=== PATIENT | female | born 1955 | race Caucasian/White ===

== ENCOUNTER → 2018-03-04 12:11 | Outpatient (CLI) | payer OTHER, SELFPAY ==
--- NOTE | 2018-03-04 12:14 | US_ITS ---
STUDY: RENAL ULTRASOUND - COMPLETE REASON FOR EXAM: Female, 62 years old. Recurrent UTI TECHNIQUE: Ultrasound evaluation of the kidneys was performed with real-time and static duran-scale imaging. COMPARISON: None. FINDINGS: RIGHT KIDNEY: Normal location of the right kidney, which is normal in size. The right kidney measures 12.1 x 5.3 x 3.8 cm. There is a normal cortex of the right kidney. The renal cortex measures 1.3 cm. There is no right renal mass or cyst. There are no right renal calculi. There is no right hydronephrosis. Probable extrarenal pelvis. DISTAL RIGHT URETER: There is non-visualization of the distal right ureter. There is a visualized right ureteral jet. LEFT KIDNEY: Normal location of the left kidney, which is normal in size. The left kidney measures 11.8 x 5.1 x 5.6 cm. There is a normal cortex of the left kidney. The renal cortex measures 2.0 cm. There is no left renal mass or cyst. There are no left renal calculi. There is no left hydronephrosis. DISTAL LEFT URETER: There is non-visualization of the distal left ureter. There is a visualized left ureteral jet. BLADDER: The distended urinary bladder has a volume of 289 ml. The post void urinary bladder has a volume of 140 ml. There is a normal wall thickness of the distended urinary bladder. There is no demonstrated mass within the urinary bladder. There are no demonstrated bladder calculi. US/Kidney and Bladder IMPRESSION: Significant post void residual of the urinary bladder. Electronically Signed: Daniele Elena DO at 23:50 EST Tel [phone], Service support ,
== END ==
PROVIDERS: Family Provider Nurse Practitioner Primary Care; PCP Nurse Practitioner Primary Care; Referring Provider Urology; Visit Provider Urology
DX: N39.0 Urinary tract infection, site not specified (principal)
CPT/HCPCS: 76770

== ENCOUNTER 2023-10-28 12:00 | Outpatient (RCR) | payer MEDICARE, SELFPAY ==
--- NOTE | 2023-09-29 15:56 | HP.PTEVAL ---
Patient's Visit Information Visit Information Visit Information: BLANK GONZALEZ is a 68 year old F referred to Physical Therapy by Dr. Sondra Morales MD with a diagnosis of PELVIC FLOOR DYSFUNCTION WITH URETHRAL PAIN. Date of Evaluation: 09/29/23 Physical Therapist: Gunjan Clark PT, Cert MDT Visit Plan Frequency: 1x/Week Duration: 2-4 Months Plan: PF THERAPY RELAXATION TRAINING. MANUAL PELVIC FLOOR THERAPY NEEDED. URINARY URGE AND FREQUENCY EDUCATION. HEALTHY BLADDER HABIT EDUCATION. POSTURE TRAINING. SANTY LE ROM, STRETCHING AND STRENGTHENING TO DECREASE STRESS ON THE PELVIC FLOOR. TRAINING IN APPROPRIATE ABDOMINAL CAVITY PRESSURE MGMT WITH ADL'S. CONSIDER PF STRENGTHENING APPROPRIATE. Subjective Subjective: Work/Leisure: RETIRED Present symptoms: INTERMITTENT PAIN IN URETHRAL AREA. INTERMITTENT VAGINAL AREA PAIN. FREQUENT URINATION (ABOUT EVERY 2 HRS) AND URINARY URGENCY. INTERMITTENT LOWER ABDOMINAL PAIN IN THE BLADDER REGION - INFRREQUENT. PATIENT REPORTS SHE HAS A FEELING A URINARY URGENCY QUITE FREQUENTLY NOW THAT SHE DIDN'T USE TO HAVE AND SHE ALSO HAS A DISCOMFORT IN HER VAGINAL AREA NOW QUITE FREQUENTLY THAT SHE DIDN'T USE TO HAVE. THESE SYMPTOMS HAVE REMAINED SINCE THE EPISODE OF SEVERE PAIN ONSET APPROX'LY END OF JULY THAT STARTED FOR NO APPARENT REASON. Present since: JULY Pain Scale: WORST 6/10, LEAST 0/10 Currently: /10 Is it getting better, worse or staying the same: GETTING BETTER Commenced as a result of: NO APPARENT REASON BUT WAS DEALING WITH diarrhea AND GAS. Symptoms at onset: PAIN, CRAMPING AND BULGING IN VAGINAL AREA AND PAIN IN THE URETHRA. Worse: NOTHING IN PARTICULAR BUT NOTICES VAGINAL DISCOMFORT MORE WHEN LIES DOWN AT NIGHT. NOTICES URGENCY JUST SITTING BUT ALSO ANYTIME. STRESS Better: URAGESIC BLUE - TABLET, [place], BM, URINATING ALMOST ALWAYS GIVES SOME BUT NOT COMPLETE PAIN RELIEF. Disturbed sleep: GETTING UP 2-3 TIMES AT NIGHT TO URINATE Previous history/Previous treatment: 2018 - DIET CHANGES RECOMMENDED BY DR. MORALES - WHICH REALLY HELPED HER BURNING AND URGENCY. STATES DR. MORALES FOUND LESIONS IN HER BLADDER TOO. HYSTERECTOMY. BLADDER SUSPENSION ABOUT 10 YEARS AGO. Treatment this episode: URAGESIC BLUE Coughing/sneezing/straining: NEGATIVE FOR UI Gait: NORMAL How long can you delay the need to urinate: LONG NEEDED TO GET TO THE BATHROOM BUT DANCES TO GET THERE SOMETIMES AND BARELY MAKES IT. Prolapse (Falling out feeling): NO LONGER FEELING THIS Frequency of Urination: ABOUT EVERY 2 HOURS Ability to stop urine flow: AT LEAST PARTIALLY IF NOT ALL THE WAY. Ability to initiate urine stream: YES Dyspareunia: N/A Bowel Incontinence: NO Accidents: NO Unexplained weight loss: NO Imaging: Cystoscopy 2018 PMH/Recent major surgery: ULCERATIVE COLITIS, HIGH CHOLESTEROL, DEPRESSION, ANXIETY Objective Objective: Sitting/Standing Posture: SWAY BACK. INCREASED KYPHOSIS. NO RELAVENT LATERALY SHIFT. ILIAC CRESTS SYMMETRICAL Other Observations: THIS PATIENT AMBULATES INDEP'LY INTO PT WITHOUT ANY AD'S OR LOB. INDEP TRANSFERS. SHE IS PLEASANT AND COOPERATIVE TO WORK WITH. Sensory deficit: SANTY LE LIGHT TOUCH SENSATION GROSSLY INTACT AND SYMMETRICAL ROM deficit: TIGHT SANTY LE HS, HIP FLEXORS, ROTATORS, AB AND ADDUCTORS. ALSO CALVES. Motor deficit: SANTY LE'S GROSSLY 5/5 EXCEPT HIPS 4/5. PELVIC FLOOR STRENGTH OF 3/5 X 3 SEC X 3 WITH INTERNAL MANUAL VAGINAL TESTING. PATIENT DENIES PAIN WITH TESTING. Dural Signs: NEGATIVE SANTY LE'S. Lumbar mvmt loss: flex - MIN ext - MOD R SG - MOD L SG - MOD Core strength: FAIR Palpation: NO ACUTE LOW BACK OR HIP PAIN WITH PALPATION. TENDERNESS AND MILD TIGHTNESS WITH MANUAL INTERNAL VAGINAL PALPATION OF PELVIC FLOOR MUSCULATURE BUT NO PALPAPABLE TRIGGER POINTS. FUNCTIONAL SCREEN: Incontinence Impact Questionnaire Score: 0 Urogenital Distress Inventory Score: 6 Goals Goal 1:: DECREASE C/O OF # OF EPISODES OF URETHRAL PAIN BY AT LEAST 50% Goal Time Frame: 6-8 Weeks Goal 2:: DECREASE C/O INTENSITY OF URETHRAL PAIN BY AT LEAST 75% Goal Time Frame: 6-8 Weeks Goal 3:: PATIENT WILL BE ABLE TO SUCCESSFULLY BE ABLE TO MAKE IT TO THE BATHROOM IN TIME WITHOUT UI OR URGENCY. Goal Time Frame: 6-8 Weeks Goal 4:: NORMALIZE VOIDING PATTERNS TO EVERY 2.5 TO 3.5 HOURS. Goal Time Frame: 6-8 Weeks Goal 5:: PATIENT WILL BE INDEP WITH A HEP FOR CONTINUED IMPROVEMENT ONCE FORMAL PHYSICAL THERPAY CONCLUDES. Goal Time Frame: 6-8 Weeks Rehabilitation Potential Physical Therapy Diagnosis: ACUTE PELVIC FLOOR TENDERNESS AND WEAKNESS ALONG WITH HISTORY OF CHRONIC URGE INCONTINENCE. INCREASED URIINARY FREQUENCY. Rehabilitation Potential: Good Anticipated Interventions Patient/Client Instruction: Educate patient on: Condition, Plan of Care and Risk Factors For the Purpose of:: To improve self management Therapeutic Exercise to Include: Strength training, Postural training, Flexibilty training, Neuromotor development and Relaxation training For the Purpose of:: To decrease pain, To improve muscle performance and motor function, To increase tolerance to activity/condition/position, To improve ability of physical actions for home/community/work/leisure, To decrease soft tissue restriction, To increase flexibility/ROM and To improve self management Manual Therapy Techniques to Include: Soft tissue mobilization For the Purpose of:: To decrease pain and To decrease soft tissue restriction Thermo therapy (hot pack): Yes For the Purpose of:: To decrease pain and To improve nutrient delivery to tissue Text: Thank you for the opportunity to evaluate your patient. For Medicare and Medicare HMO plans, please review the plan of care and approve it. It will need to be FAXED BACK to us at [phone] for Medicare purposes. For Medicare only, by signing this I certify the plan of care. Please let me know if there are questions or concerns regarding this plan of care. Physician Signature: Date:
--- NOTE | 2023-10-28 12:49 | HP.PTDCSUM ---
Discharge Summary D/C summary: It has been my pleasure to treat BLANK GONZALEZ referred by Dr. Sondra Mary MD, with the diagnosis of PELVIC FLOOR DYSFUNCTION WITH URETHRAL PAIN for a total of 6 visit(s). Discharge Date: Please see the following information for a summary of their discharge status. Subjective Subjective: I HAVEN'T HAD ANY MORE PROBLEM. PATIENT REPORTS COMPLIANCE WITH HEP AND STATES IT IS GOING GOOD. REPORTS SHE TRIED ONCE AND FOUND THAT SHE IS ABLE TO STOP HER URINE FLOW MID-STREAM. PATIENT REPORTS SHE FEELS READY FOR DISCHARGE. Overall Improvement % Improvement: 100 Objective Objective/Function: ALL GOALS MET. PATIENT COMMUNICATES A GOOD UNDERSTANDING OF ALL INSTRUCTIONS GIVEN. Goals Goal 1:: DECREASE C/O OF # OF EPISODES OF URETHRAL PAIN BY AT LEAST 50% Goal Progress: Goal Met Goal 2:: DECREASE C/O INTENSITY OF URETHRAL PAIN BY AT LEAST 75% Goal Progress: Goal Met Goal 3:: PATIENT WILL BE ABLE TO SUCCESSFULLY BE ABLE TO MAKE IT TO THE BATHROOM IN TIME WITHOUT UI OR URGENCY. Goal Progress: Goal Met Goal 4:: NORMALIZE VOIDING PATTERNS TO EVERY 2.5 TO 3.5 HOURS. Goal Progress: Goal Met Goal 5:: PATIENT WILL BE INDEP WITH A HEP FOR CONTINUED IMPROVEMENT ONCE FORMAL PHYSICAL THERPAY CONCLUDES. Goal Progress: Goal Met Plan Plan: D/C. PATIENT AGREEABLE. D/C Information d/c sentence: If there are questions or concerns regarding this patient's physical therapy, please feel free to call me at [phone]. Thank you for the referral of this patient. Sincerely, Gunjan Clark, PT, Cert MDT Balance/Gait/Functional tests Improvement % Improvement: 100
== END 2023-10-28 19:00 | disposition home or self-care (01) ==
LOC: PT 12:00
PROVIDERS: PCP Nurse Practitioner Primary Care; Referring Provider Urology; Visit Provider Urology
DX: M99.05 Segmental and somatic dysfunction of pelvic region (principal)
CPT/HCPCS: 97162; 97530

== ENCOUNTER → 2024-11-21 | Outpatient (CLI) | payer MEDICARE, SELFPAY ==
[2024-11-21 10:52] LABS: Hematocrit 40.0 % (37-47); Hemoglobin 13.2 g/dL (12.0-15.0); Immature Granulocytes Count 0.010 X10^3/uL (0.0-0.0); Mean Corp Hgb Conc 33.0 g/dL (32-36); Mean Corpuscular Volume 89.7 fL (81-99); Mean Platelet Vol. 9.2 fl (6.2-12.0); NRBC Flagged by Analyzer 0 % (0-5); Platelet Count 352 K/mm3 (150-450); RBC Distribution Width CV 12.5 % (11.6-14.6); RBC Distribution Width SD 41.0 fl (35.1-43.9); Red Blood Count 4.46 M/mm3 (4.2-5.4); White Blood Count 4.9 K/mm3 (4.4-11.0)
[2024-11-21 11:57] LABS: AST(SGOT) 34 U/L (<=31); Alanine Aminotransfer ALT/SGPT 16 U/L (<=34); Albumin, Serum 4.0 g/dL (3.4-4.8); Alkaline Phosphatase 68 U/L (35-104); Anion Gap 10 (5-15); BUN 13 mg/dL (4-19); BUN/Creat Ratio 22.2 RATIO (10-20); CRP < 3.00 mg/L (0.0-3.0); Calcium,Total 8.8 mg/dL (7.6-11.0); Carbon Dioxide 24.4 mmol/L (21.0-32.0); Chloride 105 mmol/L (98-108); Globulin 2.8 g/dL (2.2-4.2); Glucose 94 mg/dL (70-99); Potassium 4.1 mmol/L (3.3-5.1)
[2024-11-23 03:07] LABS: Pancreatic Elastase, Fecal > 800 (>200)
[2024-11-24 00:07] LABS: Calprotectin, Stool 14 ug/g (0-120); Fats, Neutral Normal (.); Fats, Total Normal (.)
== END | disposition home or self-care (01) ==
PROVIDERS: PCP Nurse Practitioner Primary Care; Referring Provider Internal Medicine Gastroenterology; Visit Provider Internal Medicine Gastroenterology
DX: K51.90 Ulcerative colitis, unspecified, without complications (principal)
CPT/HCPCS: 36415; 80053; 82653; 82705; 83630; 83993; 85025; 85652; 86140; 87177; 87209; 87329; 87493

== ENCOUNTER → 2025-01-09 | Outpatient (CLI) | payer MEDICARE, SELFPAY ==
--- NOTE | 2025-01-09 09:37 | US_ITS ---
PROCEDURE: ABDOMEN LIMITED 01/09/2025 REASON FOR EXAM: ELEVATED LFTS TECHNIQUE: Procedure Code: USABDL Modality: US Procedure: ABDOMEN LIMITED COMPARISON: None FINDINGS: Liver: Diffusely echogenic suggesting fatty infiltration. Hepatomegaly. The liver measures 18.9 cm. There is a 1.5 cm 1.9 cm by 1.3 cm hyperechoic nodule in the right lobe of the liver superiorly. This most likely represents a hemangioma. Gallbladder: No stones, sludge, wall thickening or tenderness. Common bile duct: Normal measuring 4.6 mm. . Pancreas: Normal Other: Visualized portions of the right kidney are unremarkable. No right upper quadrant ascites. US/Abdomen Limited IMPRESSION: Hepatomegaly and fatty infiltration of the liver. Findings suggestive of a 1.5 cm x 1.9 cm x 1.3 cm hemangioma in the right lobe of the liver. Reading Location: [place] [id number]
== END | disposition home or self-care (01) ==
PROVIDERS: PCP Nurse Practitioner Primary Care; Referring Provider Internal Medicine Gastroenterology; Visit Provider Internal Medicine Gastroenterology
DX: R79.89 Other specified abnormal findings of blood chemistry (principal)
CPT/HCPCS: 76705

== ENCOUNTER → 2025-01-30 | Outpatient (CLI) | payer MEDICARE, SELFPAY ==
--- OUTSIDE RECORDS SUMMARY | 2025-01-30 07:21 | XMS RPT_ITS | CCD ---
Author Organization [facility] Care Team Providers Care Manager Inventory Control Name Role Phone IGGY LICENSED VETERINARY TECHNICIAN-FOUNTAIN PEN NIBS INSPECTOR, GRIS S Primary Care Physicia n CLYDE LORENZO MD Attending Unavailable IGGY LICENSED VETERINARY TECHNICIAN-FOUNTAIN PEN NIBS INSPECTOR, GRIS S Primary Care Unava ilable IGGY LICENSED VETERINARY TECHNICIAN-FOUNTAIN PEN NIBS INSPECTOR, GRIS S Primary Care Unava ilable XAVI IBRAHIM, DR GAMBINO Attending Unavailable DEVIKA LICENSED VETERINARY TECHNICIAN-FOUNTAIN PEN NIBS INSPECTOR, MELODIE Steele Attending Unavai lable IGGY LICENSED VETERINARY TECHNICIAN-FOUNTAIN PEN NIBS INSPECTOR, GRIS S Primary Care Unava ilEVETTE Wright DO Consulting Unavail able XAVI IBRAHIM, DR GAMBINO Attending Unavailable IGGY LICENSED VETERINARY TECHNICIAN-FOUNTAIN PEN NIBS INSPECTOR, GRIS S Primary Care Unava ilALEXANDRIA Sneed MD Consulting Unavailable DEVIKA LICENSED VETERINARY TECHNICIAN-FOUNTAIN PEN NIBS INSPECTOR, MELODIE Steele Attending Unavai lable IGGY LICENSED VETERINARY TECHNICIAN-FOUNTAIN PEN NIBS INSPECTOR, GRIS S Primary Care Unava ilable IGGY LICENSED VETERINARY TECHNICIAN-FOUNTAIN PEN NIBS INSPECTOR, GRIS S Primary Care Unava ilable IGGY LICENSED VETERINARY TECHNICIAN-FOUNTAIN PEN NIBS INSPECTOR, GRIS S Attending Unava ilable IGGY LICENSED VETERINARY TECHNICIAN-FOUNTAIN PEN NIBS INSPECTOR, GRIS S Attending Unava ilable IGGY LICENSED VETERINARY TECHNICIAN-FOUNTAIN PEN NIBS INSPECTOR, GRIS S Primary Care Unava ilable IGGY LICENSED VETERINARY TECHNICIAN-FOUNTAIN PEN NIBS INSPECTOR, GRIS S Primary Care Unava ilable IGGY LICENSED VETERINARY TECHNICIAN-FOUNTAIN PEN NIBS INSPECTOR, GRIS S Attending Unava ilable IGGY LICENSED VETERINARY TECHNICIAN-FOUNTAIN PEN NIBS INSPECTOR, GRIS S Primary Care Unava ilable DEVIKA LICENSED VETERINARY TECHNICIAN-FOUNTAIN PEN NIBS INSPECTOR, MELODIE Steele Attending Unavai lable IGGY LICENSED VETERINARY TECHNICIAN-FOUNTAIN PEN NIBS INSPECTOR, GRIS S Primary Care Unava ilable IGGY LICENSED VETERINARY TECHNICIAN-FOUNTAIN PEN NIBS INSPECTOR, GRIS S Attending Unava ilable COBY CAMPOS PA-C Attending Unavailable IGGY LICENSED VETERINARY TECHNICIAN-FOUNTAIN PEN NIBS INSPECTOR, GRIS S Primary Care Unava ilable JIMMIE LICENSED VETERINARY TECHNICIAN-FOUNTAIN PEN NIBS INSPECTOR, NASH Attending Unavailab le IGGY LICENSED VETERINARY TECHNICIAN-FOUNTAIN PEN NIBS INSPECTOR, GRIS S Primary Care Unava ilable IGGY LICENSED VETERINARY TECHNICIAN-FOUNTAIN PEN NIBS INSPECTOR, GRIS S Primary Care Unava ilable SOFI MUKHERJEE DO Attending Unavailable XAVI IBRAHIM, DR GAMBINO Attending Unavailable IGGY LICENSED VETERINARY TECHNICIAN-FOUNTAIN PEN NIBS INSPECTOR, GRIS S Primary Care Unava ilable IGGY LICENSED VETERINARY TECHNICIAN-FOUNTAIN PEN NIBS INSPECTOR, GRIS S Primary Care Unava parvezable XAVI IBRAHIM, DR GAMBINO Attending Unavailable IGGY LICENSED VETERINARY TECHNICIAN-FOUNTAIN PEN NIBS INSPECTOR, GRIS S Primary Care Unava ilable XAVI IBRAHIM, DR GAMBINO Attending Unavailable DEVIKA LICENSED VETERINARY TECHNICIAN-FOUNTAIN PEN NIBS INSPECTOR, MELODIE Steele Attending Unavai lable IGGY LICENSED VETERINARY TECHNICIAN-FOUNTAIN PEN NIBS INSPECTOR, GRIS S Primary Care Unava ilable Iggy HYDRAULIC DESIGN ENGINEER-C, Gris Primary Care Physician [phone] Usman IBRAHIM, Dr. Amaro Attending Physician Iggy HYDRAULIC DESIGN ENGINEER-C, Gris Referring Provider [phone] Dr. Alin Mehta DO Attending Physician Dr. Alin Mehta DO Referring Provider FriendAlin Referring Unavailable FriendAlin Attending Unavailable Iggy HYDRAULIC DESIGN ENGINEER, Gris Primary Care Unavailable Iggy HYDRAULIC DESIGN ENGINEER, Gris Primary Care Unavailable Sondra Mary Attending Unavailable [place] HYDRAULIC DESIGN ENGINEER, Gris Referring Unavailable FriendAlin Attending Unavailable [place] HYDRAULIC DESIGN ENGINEER, Gris Referring Unavailable [place] HYDRAULIC DESIGN ENGINEER, Gris Primary Care Unavailable [place] HYDRAULIC DESIGN ENGINEER-C, Gris Primary Care Physician [phone] [place] HYDRAULIC DESIGN ENGINEER-C, Gris Referring Provider [phone] Dr. Alin Mehta DO Attending Physician [phone] Dr. Alin Mehta DO Referring Provider Usman IBRAHIM, Dr. Amaro Attending Physician Allergies Allergy Classification Reported Allergen(s) Allergy Type Date of Onset Reaction(s) Facility (18 sources) Erythromycin; Translations: [erythromycin] Drug Allergy Nausea and vomiting (disorder) [facility] (17 sources) NITROFURANTOIN, MACROCRYSTALS / Nitrofurantoin, Monohydrate; Translations: [nitrofurantoin] Drug Allergy Weal (disorder) [facility] Comment on above: Pt states to remove it, she has been using generic w/o difficulty (20 sources) Penicillin; Translations: [penicillins] Drug Allergy Eruption of skin (disorder) [facility] (20 sources) Sulfonamides (Antibiotic); Translations: [sulfa drugs] Drug allergy Weal (disorder) [facility] (2 sources) Penicillins Allergy to substance 5 [facility] (2 sources) Sulfonamides (Antibiotic) Allergy to substance 5 [facility] (1 source) Penicillins Drug allergy (disorder) 5 [facility] (1 source) Sulfonamides (Antibiotic) Drug allergy (disorder) 5 [facility] Medications Current Medications Medication Drug Class(es) Dates Sig (Normalized) Sig (Original) acetaminophen 500 mg oral capsule (20 sources) Start: 10-24-2024 take 1 capsule by mouth every six hours as needed Acetaminophen 500 mg capsule Active 500 mg PO EVERY 6 HOURS as needed October 23, 2024 11:00pm Complies with drug therapy Start: 08-24-2018 acetaminophen 500 mg oral tablet Dose : 500 mg = 1 tab(s), Oral, q6hr, PRN for pain, 0 Refill(s) Start Date: 08/24/18 Status: Ordered Medication Dispense Status: Completed Total Allowed Fills: 1 Fills Dispensed: 0 Adult Multivitamin Gummies (1 source) Start: 01-16-2023 Adult Multivit baptiste Gummies 0 Refill(s) Start Date: 01/16/23 Status: Ordered Calcium (20 sources) Phosphate Binder, Calcium Start: 10-02-2014 take 1 tablet by mouth once daily Calcium 600+D Dose = 2 tab(s), Oral, Daily, 0 Refill(s) Start Date: 10/02/14 Status: Ordered Medication Dispense Status: Completed Total Allowed Fills: 1 Fills Dispensed: 0 Start: 10-02-2014 take 1 tablet by sindhu th once daily Calcium 600+D Dose = 2 tab(s), Oral, Daily, 0 Refill(s) Start Date: 10/02/14 Status: Ordered Repeat number: 1 Start: 10-02-2014 take 1 tablet by sinhdu th once daily Calcium 600+D Dose = 2 tab(s), Oral, Daily, 0 Refill(s) Start Date: 10/02/14 Status: Ordered Start: 10-02-2014 take 1 tablet by sindhu once daily Calcium 600+D Dose = 1 tab(s), Oral, Daily, 0 Refill(s) Start Date: 10/02/14 Status: Ordered calcium carbonate 1500 mg / cholecalciferol 800 unt chewable tablet (2 sources) Vitamin D Start: 10-24-2024 Calcium Carbonate-Vitamin D3 (Calcium 600 With Vitamin D3) 600 mg-10 mcg (400 unit) tablet,chewable Active {tbl} PO October 23, 2024 11:00pm Complies with drug therapy cephalexin 500 mg oral capsule (5 sources) Cephalosporin Antibacterial Start: 05-13-2023 End: 05-20-2023 cephalexin 500 mg oral capsule Dose : 500 mg = 1 cap(s), Oral, q12h, # 14 cap(s), 0 Refill(s), Pharmacy: [facility] #[id number], 154, cm, 05/13/23 9:24:00 EDT, Height, 63.7, kg, 05/13/23 9:24:00 EDT, Dosing Weight Start Date: 05/13/23 Stop Date: 05/20/23 Status: Ordered Start: 06-12-2022 End: 06-19-2022 cephalexin 500 mg oral capsu le Dose : 500 mg = 1 cap(s), Oral, QID, X 7 day(s), # 28 cap(s), 0 Refill(s), 06/19/22 16:27:00 EDT, Pharmacy: [facility] #[id number], 154.5, cm, 06/11/22 13:32:00 EDT, Height, 65.3 Start Date: 06/12/22 Stop Date: 06/19/22 Status: Ordered Start: 04-10-2022 End: 04-17-2022 cephalexin 500 mg oral capsu le Dose : 500 mg = 1 cap(s), Oral, q8h, X 7 day(s), # 21 cap(s), 0 Refill(s), 04/17/22 14:47:00 EST, Pharmacy: [facility] #[id number], UTI (urinary tract infection), 154.4, cm, 04/10/22 14:28:00 EST, Height, 62.4 Start Date: 04/10/22 Stop Date: 04/17/22 Status: Ordered Start: 11-11-2021 End: 11-18-2021 cephalexin 500 mg oral capsu le Dose : 500 mg = 1 cap(s), Oral, q8h, X 7 day(s), # 21 cap(s), 0 Refill(s), 11/18/21 10:45:00 EDT, Pharmacy: [facility]/pharmacy #[id number], UTI symptoms, 154.4, cm, 11/11/21 10:16:00 EDT, Height, 63.2 Start Date: 11/11/21 Stop Date: 11/18/21 Status: Ordered Start: 12-31-2020 End: 01-07-2021 cephalexin 500 mg oral capsu le Dose : 500 mg = 1 cap(s), Oral, q8h, X 7 day(s), # 21 cap(s), 0 Refill(s), 01/07/21 15:27:00 EST, Pharmacy: [facility]/pharmacy #[id number], UTI (urinary tract infection), 152.4, cm, 12/12/20 12:59:00 EDT, Height, 63.3, kg, 12/31/20 15:01:00 EST, Dosing Weight Start Date: 12/31/20 Stop Date: 01/07/21 Status: Ordered colesevelam hydrochloride 625 mg oral tablet (1 source) Bile Acid Sequestrant Start: 02-23-2020 coleseve suresh 625 mg oral tablet Dose : 1,250 mg = 2 tab(s), Oral, BID, # 180 tab(s), 0 Refill(s) Start Date: 02/23/20 Status: Ordered colestipol hydrochloride 1000 mg oral tablet (3 sources) Bile Acid Sequestrant Start: 12-12-2020 colestip ol 1 g oral tablet Dose : 2 gram(s) = 2 tab(s), Oral, BID, # 120 tab(s), 0 Refill(s) Start Date: 12/12/20 Status: Ordered Start: 12-04-2020 colestipol 1 g oral tablet 0 Refill(s) Start Date: 12/04/20 Status: Ordered estradiol 0.1 mg/ml vaginal cream (20 sources) Estrogen Start: 11-30-2024 Estradiol 0.01 % (0.1 mg/gram) cream Active 1 g VAGINAL 3 TIMES A WEEK 42.5 3 November 30, 2024 1:04pm Complies with drug therapy Start: 11-30-2024 Estradiol 0.01 % (0.1 mg/gram) cream Active 1 g VAGINAL 3 TIMES A WEEK 42.5 November 30, 2024 2:04pm Complies with drug therapy Start: 10-24-2024 End: 11-30-2024 Estradiol 0.01 % (0.1 mg/gra m) cream Discontinued 1 NMA VAGINAL daily October 23, 2024 11:00pm November 30, 2024 1:06pm for 14 days Start: 07-27-2024 End: 11-24-2024 estradiol 0.1 mg/g vaginal c ream Dose = 1 appl, Vaginal, Thu/Thu/Thu, # 13 EA, 3 Refill(s), Pharmacy: [facility], 153.5, cm, 07/27/24 14:23:00 EDT, Height, kg, 07/27/24 14:23:00 EDT, Dosing Weight Start Date: 07/27/24 Stop Date: 11/24/24 Status: Ordered Medication Dispense Status: Completed Quantity: 13.0 Unit: EA Total Allowed Fills: 4 Fills Dispensed: 0 Start: 10-16-2022 End: 02-13-2023 estradiol 0.1 mg/g vaginal c ream Dose = 1 appl, Vaginal, Thu/Thu/Thu, # 13 EA, 3 Refill(s), Pharmacy: [facility] #[id number], 154.5, cm, 06/20/22 10:12:00 EDT, Height, kg, 06/20/22 10:12:00 EDT, Dosing Weight Start Date: 10/16/22 Stop Date: 02/13/23 Status: Ordered Quantity: 13.0 Unit: EA Repeat number: 4 Start: 09-26-2021 End: 01-24-2022 estradiol 0.1 mg/g vaginal c ream Dose = 1 appl, Vaginal, Thu/Thu/Thu, # 13 EA, 3 Refill(s), [id number], 154.5, cm, 09/26/21 14:00:00 EDT, Height, kg, 09/26/21 14:00:00 EDT, Dosing Weight Start Date: 09/26/21 Stop Date: 01/24/22 Status: Ordered Start: 05-20-2021 End: 06-19-2021 estradiol 0.1 mg/g vaginal c ream Dose = 1 appl, Vaginal, Thu/Thu/Thu, EA=application; in lieu of PCP, # 13 EA, 0 Refill(s), [id number], 155, cm, 04/16/21 9:31:00 EST, Height, kg, 04/16/21 9:31:00 EST, Dosing Weight Start Date: 05/20/21 Stop Date: 06/19/21 Status: Ordered estradiol 0.1 mg/g vaginal cream (3 sources) Start: 08-07-2019 estradiol 0.1 mg/g vaginal cream Dose = 1 appl, Vaginal, Thu/Thu/Thu, # 42.5 gram(s), 3 Refill(s), Pharmacy: [facility] [address], 156, cm, 12/21/18 11:18:00 EST, Height, kg, 12/21/18 11:18:00 EST, Dosing Weight Start Date: 08/07/19 Status: Ordered fluconazole 150 mg oral tablet (5 sources) Azole Antifungal Start: 04-10-2022 take 1 tablet by mouth once daily as needed fluconazole 150 mg oral tablet take 1 tablet by mouth once daily for 2 days, prn Start Date: 04/10/22 Status: Ordered fluorometholone 1 mg/ml ophthalmic suspension (18 sources) Corticosteroid Start: 10-24-2024 Fluorometholone 0.1 % drops,suspension Active 2 NMA OPHTHALMIC EVERY 6 HOURS October 23, 2024 11:00pm Complies with drug therapy Start: 12-16-2021 take 1 dose into the eye(s) twice daily fluorometholone 0.1% ophthalmic suspension Dose = 1 drop(s), Eyes, both, BID Start Date: 12/16/21 Status: Ordered Medication Dispense Status: Completed Total Allowed Fills: 1 Fills Dispensed: 0 Start: 12-16-2021 take 1 drop(s) into the eye(s) twice daily fluorometholone 0.1% ophthalmic suspension instill 1 drop into both eyes twice a day Start Date: 12/16/21 Status: Ordered mesalamine 1200 mg delayed release oral tablet (20 sources) Aminosalicylate Start: 10-24-2024 take 2 tablets by mouth once daily Mesalamine (Lialda) 1.2 gram tablet,delayed release (DR/EC) Active 2.4 g PO daily October 23, 2024 11:00pm Complies with drug therapy Start: 08-24-2018 mesalamine 1.2 g oral delayed release tablet Dose : 2.4 gram(s) = 2 tab(s), Oral, BID, 0 Refill(s) Start Date: 08/24/18 Status: Ordered Medication Dispense Status: Completed Total Allowed Fills: 1 Fills Dispensed: 0 mesalamine 1.2 g oral delayed release tablet (3 sources) Start: 08-24-2018 mesalamine 1.2 g oral delayed release tablet Dose : 2.4 gram(s) = 2 tab(s), Oral, qDay, # 112 tab(s), 0 Refill(s) Start Date: 08/24/18 Status: Ordered Multiple Vitamins oral tablet (8 sources) Start: 03-19-2023 take 1 tablet by mouth once daily Multiple Vitamins oral tablet Dose = 1 tab(s), Oral, Daily Start Date: 03/19/23 Status: Ordered Medication Dispense Status: Completed Total Allowed Fills: 1 Fills Dispensed: 0 Start: 03-19-2023 take 1 tablet by mouth once da jovan Multiple Vitamins oral tablet Dose = 1 tab(s), Oral, Daily Start Date: 03/19/23 Status: Ordered Repeat number: 1 Start: 03-19-2023 take 1 tablet by mouth once da jovan Multiple Vitamins oral tablet Dose = 1 tab(s), Oral, Daily Start Date: 03/19/23 Status: Ordered Multivitamin tablet (2 sources) Start: 10-24-2024 Multivitamin t ablet Active 1 {tbl} PO EVERY MORNING October 23, 2024 11:00pm Complies with drug therapy Start: 10-24-2024 Multivitamin t ablet Active 1 {tbl} PO EVERY MORNING October 24, 2024 12:00am Complies with drug therapy psyllium 3400 mg powder for oral suspension (6 sources) Start: 03-19-2023 Metamucil Unfl avored Smooth Texture 3.4 g/5.4 g oral powder for reconstitution Dose : 1.7 gram(s) =, Oral, qDay, PRN as needed for constipation Start Date: 03/19/23 Status: Ordered Repeat number: 1 Start: 03-19-2023 Metamucil Unfl avored Smooth Texture 3.4 g/5.4 g oral powder for reconstitution Dose : 1.7 gram(s) =, Oral, qDay Start Date: 03/19/23 Status: Ordered sertraline 25 mg oral tablet (20 sources) Serotonin Reuptake Inhibitor Start: 10-24-2024 Sertraline 25 mg tablet Active 37.5 mg PO daily October 23, 2024 11:00pm Complies with drug therapy Start: 07-11-2024 take 1.5 tablets by mouth once daily sertraline 25 mg oral tablet See Instructions, TAKE 1.5 TABLET ONCE DAILY, # 135 tab(s), 3 Refill(s), Pharmacy: [facility], 152.4, cm, 06/14/24 6:52:00 EDT, Height, kg, 06/14/24 6:52:00 EDT, Dosing Weight Start Date: 07/11/24 Status: Ordered Medication Dispense Status: Completed Quantity: 135.0 Unit: tab(s) Total Allowed Fills: 4 Fills Dispensed: 0 Start: 10-07-2023 take 1.5 tablets by mouth once daily sertraline 25 mg oral tablet See Instructions, TAKE 1.5 TABLET ONCE DAILY, # 135 tab(s), 3 Refill(s), Pharmacy: [facility], 155.5, cm, 08/06/23 15:07:00 EDT, Height, kg, 08/06/23 15:07:00 EDT, Dosing Weight Start Date: 10/07/23 Status: Ordered Quantity: 135.0 Unit: tab(s) Repeat number: 4 Start: 06-16-2023 take 1.5 tablets by mouth once daily sertraline 25 mg oral tablet See Instructions, TAKE 1.5 TABLET ONCE DAILY, # 135 tab(s), 3 Refill(s), Pharmacy: [facility] #[id number], 155.5, cm, 06/16/23 10:05:00 EDT, Height, kg, 06/16/23 10:05:00 EDT, Dosing Weight Start Date: 06/16/23 Status: Ordered Start: 11-19-2022 take 1.5 tablets by mouth once daily sertraline 25 mg oral tablet See Instructions, TAKE 1.5 TABLET ONCE DAILY, # 135 tab(s), 3 Refill(s), Pharmacy: [facility] #[id number], 154.5, cm, 11/19/22 16:01:00 EDT, Height, kg, 11/19/22 16:01:00 EDT, Dosing Weight Start Date: 11/19/22 Status: Ordered Start: 09-26-2021 take 1.5 tablets by mouth once daily sertraline 25 mg oral tablet See Instructions, TAKE 1.5 TABLET ONCE DAILY, # 135 tab(s), 3 Refill(s), Pharmacy: [facility]/pharmacy #[id number], 154.5, cm, 09/26/21 14:00:00 EDT, Height, kg, 09/26/21 14:00:00 EDT, Dosing Weight Start Date: 09/26/21 Status: Ordered Start: 05-22-2021 take 1.5 tablets by mouth once daily sertraline 25 mg oral tablet See Instructions, TAKE 1.5 TABLET ONCE DAILY, # 135 tab(s), 0 Refill(s), Pharmacy: [facility]/pharmacy #[id number], 155, cm, 04/16/21 9:31:00 EST, Height, kg, 04/16/21 9:31:00 EST, Dosing Weight Start Date: 05/22/21 Status: Ordered Start: 11-20-2020 take 1.5 tablets by mouth once daily sertraline 25 mg oral tablet See Instructions, TAKE 1.5 TABLET ONCE DAILY, # 135 tab(s), 0 Refill(s), Pharmacy: [facility]/pharmacy #[id number], 155, cm, 02/23/20 11:21:00 EST, Height, kg, 02/23/20 11:21:00 EST, Dosing Weight Start Date: 11/20/20 Status: Ordered simvastatin 20 mg oral tablet (20 sources) HMG-CoA Reductase Inhibitor Start: 11-19-2022 End: 07-06-2025 take 1 tablet by mouth once daily Simvastatin 20 mg tablet Active 20 mg PO daily October 23, 2024 11:00pm Complies with drug therapy Start: 09-26-2021 End: 09-21-2022 simvastatin 20 mg oral table t Dose : 20 mg = 1 tab(s), Oral, qHS, # 90 tab(s), 3 Refill(s), [id number], 154.5, cm, 09/26/21 14:00:00 EDT, Height, kg, 09/26/21 14:00:00 EDT, Dosing Weight Start Date: 09/26/21 Stop Date: 09/21/22 Status: Ordered Start: 08-28-2020 End: 08-23-2021 simvastatin 20 mg oral table t Dose : 20 mg = 1 tab(s), Oral, qHS, # 90 tab(s), 3 Refill(s), [id number], 155, cm, 02/23/20 11:21:00 EST, Height, kg, 02/23/20 11:21:00 EST, Dosing Weight Start Date: 08/28/20 Stop Date: 08/23/21 Status: Ordered Completed/Discontinued Medications Medication Drug Class(es) Dates Sig (Normalized) Sig (Original) [facility] Medication (5 sources) Start: 04-29-2024 [facility] Medication Uro-MP, 0 Refill(s), 62.5 Start Date: 04/29/24 Status: Ordered Medication Dispense Status: Completed Total Allowed Fills: 1 Fills Dispensed: 0 Start: 04-29-2024 [facility] Medicatio n Uro-MP, 0 Refill(s), 62.5 Start Date: 04/29/24 Status: Ordered Repeat number: 1 Start: 12-16-2021 [facility] Medicatio n See Instructions, 0 Refill(s), 63.2 Start Date: 12/16/21 Status: Ordered Problems Active Problems Problem Classification Problem Date Documented Date Episodic/Chronic Anxiety disorders (20 sources) Anxiety 10-02-2014 Chronic Deficiency and other anemia (1 source) Anemia, unspecified; Translations: [Anemia, unspecified] Onset: 11-19-19 Episodic Disorders of lipid metabolism (20 sources) Hypercholesterolemia 10-02-2014 Chronic Comment on above: active without ische jaja sx or cardiac limitations. Engages in organized activity program weekly Genitourinary symptoms and ill-defined conditions (20 sources) Urinary incontinence; Translations: [Chronic urinary bladder pain] 10-02-2014 Chronic Genitourinary symptoms and ill-defined conditions (20 sources) Increased frequency of urination; Translations: [Dysuria] Onset: 05-13-1906-11-2022 Episodic Menopausal disorders (4 sources) Atrophic vaginitis; Translations: [Postmenopausal atrophic vaginitis] 11-24-2024 Chronic Mood disorders (20 sources) Depressive disorder 10-02-2014 Chronic Nonspecific chest pain (5 sources) Chest discomfort 02-23-2020 Episodic Osteoarthritis (20 sources) Osteoarthritis 12-14-2019 Chronic Osteoporosis (9 sources) Osteoporosis 09-26-2021 Chronic Other bone disease and musculoskeletal deformities (8 sources) Osteopenia 03-19-2023 Episodic Other circulatory disease (11 sources) Easy bruising 06-20-2022 Episodic Other congenital anomalies (4 sources) Herniated urinary bladder 11-24-2024 Chroni c Other diseases of bladder and urethra (7 sources) Lesion of bladder 03-19-2023 Chronic Other ear and sense organ disorders (18 sources) Hearing difficulty 04-16-2021 Chronic Other gastrointestinal disorders (1 source) Diarrhea, unspecified; Translations: [Diarrhea, unspecified] Onset: 11-19-19 Episodic Other inflammatory condition of skin (14 sources) Rosacea 10-02-2014 Chronic Other liver diseases (1 source) Inflammatory liver disease, unspecified; 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, unspecified] Onset: 11-19-19 Chronic Other skin disorders (8 sources) Epidermoid cyst 11-19-2022 Episodic Other upper respiratory disease (2 sources) Rhinitis 12-31-2023 Chronic Prolapse of female genital organs (14 sources) Cystocele 10-04-2014 Chronic Regional enteritis and ulcerative colitis (20 sources) Ulcerative colitis; Translations: [Ulcerative colitis, unspecified, without complications] Onset: 12-07-1908-21-2021 Chronic Residual codes; unclassified (13 sources) Sleep apnea 06-11-2022 Chronic Comment on above: Uses oral appliance Residual codes; unclassified (20 sources) Family history of breast cancer 12-12-2020 Episodic Residual codes; unclassified (3 sources) Memory impairment 01-05-2024 Episodic Unclassified (20 sources) Patient encounter status 12-21-2018 Urinary tract infections (6 sources) Chronic interstitial cystitis 05-13-2023 Chronic Urinary tract infections (5 sources) Urinary tract infectious disease; Translations: [Urinary tract infection, site not specified] 05-13-2023 Episodic Past or Other Problems Problem Classification Problem Date Documented Da te Episodic/Chronic Nonmalignant breast conditions (20 sources) Breast lump; Translations: [Calcification of breast] Onset: 02-18-2024 12-04-2020 Episodic Other infections; including parasitic (8 sources) History of viral hepatitis Onset: 02-09-1964 03-19-2023 Episodic Other screening for suspected conditions (not mental disorders or infectious disease) (2 sources) Encounter for screening for malignant neoplasm of colon; Translations: [Encounter for screening for malignant neoplasm of colon] Onset: 03-24-2023 Episodic Results Test Name Value Interpretation Reference Range Facility [id number] 12-01-2024 [id number] ___ TESTING PERFORMED AT [facility]. ORIGINAL REPORT ON FILE IN LAB CONTAINS ADDITIONAL TEST SITE INFORMATION. ___ Giardia Lamblia EIA NEGATIVE Normal [facility] Comment on above: Performed By: #### L 500.4050, L101.9900, L501.6710, L100.0100 #### [facility] [address] [place], [address] Ova and Parasites 8623on OP OVA AND PARASITES EX AM, ROUTINE These results were obtained using wet preparation(s) and trichrome stained smear. This test does not include testing for Crytosporidium parvum, Cyclospora, or Microsporidia. One negative specimen does not rule out the possibility of a parasitic infection. ___ TESTING PERFORMED AT [facility]. ORIGINAL REPORT ON FILE IN LAB CONTAINS ADDITIONAL TEST SITE INFORMATION. ___ Ova/Parasite Exam NO OVA, CYSTS, OR PARASITES FOUND. Normal [facility] Comment on above: Performed By: #### L 500.4050, L101.9900, L501.6710, L100.0100 #### [facility] [address] [place], [address] Laboratory - Chemistry and C hemistry - challengeOrdered By: Sondra Mary on 11-30-2024 Bilirubin Ql (U) Small (1+) [facility] Glucose Ql (U) Negative [facility] Ketones Ql (U) Negative [facility] pH (U) 5.5 [pH] [facility] Specific gravity (U) [Rel density] 1.025 [facility] Urobilinogen (U) [Mass/Vol] 0.7194479 mg/dL [facility] Laboratory - Hematology and Cell countsOrdered By: Sondra Mary on 11-30-2024 Hemoglobin Ql (U) Negative [facility] - UrinalysisOrder ed By: Sondra Mary on 11-30-2024 Nitrite Ql (U) Negative [facility] Protein Ql (U) Trace [facility] MR/BMSJulio 11-30-2024 MR/BMSJOHNSON [facility] [address], [address] [place] [address] OFFICE VISIT Date of Service: 11/30/24 MR#: [id number] Acct: [id number] Name: BLANK GONZALEZ Rep #: [id number] : 1955 Provider: Dr. Sondra García i, MD Age/Sex: 69/F Location: [facility] Status: Signed Intake Vital Signs 11/30/24 13:54 Height 5 ft Weight: 135 lb BMI 26.4 BP 127/84 H Pulse 73 Intake Visit Reasons: 12MO F/U Chief Complaint: 12 month pelvic floor exercises follow up [employer] Administrator Required: No Accompanied by: self Is patient in pain?: No Allergies Penicillins (PCN) Allergy (Intermediate, Verified 11/30/24 13:52) Rash Sulfa (Sulfonamide Antibiotics) Allergy (Intermediate, Verified 11/30/24 13:52) Rash Medications ???Medication ???Instructions ???Recorded ???Confirmed ???Type acetaminophen 500 mg capsule 500 mg PO Q6H PRN 10/24/24 5 History calcium 600 mg (as carbonate)-vit tab PO 10/24/24 11/30/24 History D3 10 mcg (400 unit) chewable tablet (Calcium 600 with Vitamin D3) fluorometholone 0.1 % eye 2 drp ophthalmic (eye) Q6H 5 11/30/24 History drops,suspension mesalamine 1.2 gram tablet,delayed 2.4 g PO QDAY 10/24/24 11/30/24 History release (Lialda) multivitamin 1 tab PO QAM 10/24/24 11/30/24 His tory sertraline 25 mg tablet 37.5 mg PO QDAY 10/24/24 11/30/24 History simvastatin 20 mg tablet 20 mg PO QDAY 10/24/24 11/30/24 Hi story estradiol 0.01% (0.1 mg/gram) 1 g vaginal 3XW #42.5 grams 11/30/24 Rx vaginal cream Have you fallen in the past year?: No PFSH Medical History Sleep apnea Osteopenia Osteoarthritis Memory changes Breast calcification, left Interstitial cystitis Depression Anxiety Hypercholesteremia Ulcerative colitis Surgical History History of bladder surgery History of tonsillectomy and adenoidectomy H/O: hysterectomy Family History Brother Marfan syndrome Asthma Father Myocardial infarction Social History Smoking Status: Never smoker alcohol intake: current alcohol intake frequency: holidays/special occasions only Alcohol type: wine HPI HPI Urology Chief Complaint: 12 month pelvic floor exercises follow up Details: BLANK GONZALEZ, is a 69 F. She had a good experience with her assessment with . She is having blood work and stool samples and a follow up in February. She is hopeful that she can decrease her medications. She ended up with a horrible 6 months and finally had an enema management that really helped with her bowels. When the bowels were not inflamed, there were no bladder symptoms!!!! She has not had any urinary tract infections. She used a urogesic blue one day, and it helped her symptoms. She has plenty at home in case she needs it. ROS Const Constitutional: No chills, fatigue, fever(s), headache(s), night sweats, weakness, weight change, abnormal sleep pattern or change in appetite Eyes Eyes: No change in vision ENT ENT: No headache(s) or dry mouth Resp Respiratory: No cough, chest congestion, shortness of breath or wheezing Cardio Cardiology: Positive for other (No chest pain.); No shortness of breath, irregular heart rhythm or lightheadedness Gastro GI: Positive for other (No nausea.); No abdominal pain, change in bowel habits, constipation, diarrhea or vomiting Musc Musculoskeletal: No abnormal gait Skin Skin: No yellowing of the eye, lesions, itchy eyes, rash or skin ulcer Neuro Neurology: No abnormal gait, confusion, dizziness, weakness, headache(s) or memory loss Psych Psychiatric: No abnormal sleep pattern, No change in appetite, No confusion and No memory loss Endo Endocrine: No fatigue, increased thirst/drinking or weight change Aller/Imm Allergy/Immunologic: No itchy eyes or wheezing Bill/Lymp Hematologic/Lymphatic: No easy bleeding, easy bruising or enlarged lymph nodes Exam Const General: cooperative, healthy appearing, comfortable and no acute distress HENPR Head: normocephalic and atraumatic Ears: hearing grossly normal bilaterally and external ears normal Nose: external nose normal Eyes General: appearance normal, both eyes and all related structures Neck Neck: normal visual inspection and trachea midline Chest Chest palpation inspection: normal inspection of the chest Resp Effort Inspection: normal respiratory effort, able to speak in complete sentences and symmetric chest movement Cardio Rate: regular rate GI Inspection: normal to inspection Palpation: soft and nontender General: No CVA tenderness Skin General: no (more content not included)... Normal [facility] No Panel InformationOrdered By: Sondra Mary on 11-30-2024 Urine Leukocytes Negatve [facility] Urine Non-Hemolyzed Blood Negative [facility] L3410.9992on 11-25-2024 [facility] Mis. COMMENT Normal . [facility] Comment on above: Order Comment: 63311 4STOOL CX RMT Result Comment: Test Ordered: [id number] Stool Culture Salmonella/Shigella Screen Note: Final report Reference Range: . Result 1 Comment CB Reference Range: . No Salmonella or Shigella recovered. Campylobacter Culture Note: Final report Reference Range: . Result 1 Comment CB Reference Range: . No Campylobacter species isolated. E coli Shiga Toxin EIA Negative Reference Range: Negative Performed at: [address] [id number] [employer] Feeder: Joshua Abreu PhD, Phone: [phone] Performed By: #### L 300.5759, P333.5545, T043.0213, L100.0422 #### [facility] [address] [place], [address] Calprotectin, Stoolon [address] 14 ug/g Normal 0-120 [facility] Comment on above: Order Comment: Test( s) [id number]-Cfms, Neutral; [id number], Totalwas developed and its performance characteristicsdetermined by [facility]. It has not been cleared or approvedby the Food and Drug Administration. Result Comment: Conc entration Interpretation Follow-Up < 5 - 50 ug/g Normal None >50 -120 ug/g Borderline Re-evaluate in 4-6 weeks >120 ug/g Abnormal Repeat as clinically indicated Performed at: [facility] [address] [id number] [employer]: Joshua Abreu PhD, Phone: [phone] Performed at: [facility] Lab[address] [id number] [employer]: Delta Hazel MD, Phone: [phone] Performed By: #### L 500.4050, L101.9900, L501.6710, L100.0100 #### [facility] [address] [place], [place], [id number] Fecal Fat, Qualitativeon FATS, NEUTRAL Normal Normal . [facility] Comment on above: Order Comment: Test( s) [id number]-Cnxz, Neutral; [id number]-Zbmq, Total was developed and its performance characteristics determined by [facility] [employer]. It has not been cleared or approved by the Food and Drug Administration. Result Comment: Norm al (<60 Droplets/HPF) Performed By: #### L 7000.0700, L7000.0300, M7400.3302, M600.5000, L3410.9992, M100.0605, L7000.0750, M100.6796 #### [facility] [address] [place], [place], [id number] FATS, TOTAL Normal Normal . [facility] Comment on above: Order Comment: Test( s) [id number]-Cigf, Neutral; [id number]-Jjvi, Total was developed and its performance characteristics determined by [facility]. It has not been cleared or approved by the Food and Drug Administration. Result Comment: Norm al (<100 Droplets/HPF) Performed By: #### L 7000.0700, L7000.0300, M7400.3302, M600.5000, L3410.9992, M100.0605, L7000.0750, M100.6796 #### [facility] [address] [place], [place], [address] L7000.0750on 11-23-2024 P ELASTASE,FECA > 800 Normal >200 [facility] Comment on above: Result Comment: Resu lt Units: ug Elast./g Severe Pancreatic Insufficiency: <100 Moderate Pancreatic Insufficiency: 100 - 200 Normal: >200 Performed at: [facility] [address] [id number] [employer]: Delta Hazel MD, Phone: [phone] Performed By: #### L 7000.0700, L7000.0300, M7400.3302, M600.5000, L3410.9992, M100.0605, L7000.0750, M100.6796 #### [facility] [address] [place], [place], [id number] Absolute lymphocyte countOrd ered By: Alin Mehta on 11-21-2024 Lymphocytes Auto (Unsp spec) [#/Vol] 1.52 10*3/uL 0.83-4.51 [facility] Absolute neutrophil countOrd ered By: Alin Mehta on 11-21-2024 Neutrophils (Bld) [#/Vol] 2.9 10*3/uL 2.0-7.7 [facility] Anion gap in Serum or Plasma Ordered By: Alin Mehta on 11-21-2024 Anion gap [Moles/Vol] 10 mmol/L 5-15 [facility] Automated lymphocyte count a s percentage of total leukocytesOrdered By: Alin Mehta on 11-21-2024 Lymphocytes/100 WBC Auto (Unsp spec) 31.1 % 19-41 [facility] BUN/creatinine ratioOrdered By: Alin Mehta on 11-21-2024 Urea nitrogen/Creatinine [Mass ratio] 22.2 mg/mg High 10-20 [facility] Basophil percentageOrdered B y: Alin Mehta on 11-21-2024 Basophils/100 WBC (Bld) 0.8 % 0-1 [facility] Bilirubin, totalOrdered By: Alin Mehta on 11-21-2024 Bilirubin [Mass/Vol] 0.32 mg/dL 0.00-1.30 [facility] CBC W/Diff, Automatedon 11-09 Absolute Lymph 1.52 X10 3/uL Normal 0.83-4.51 [facility] Comment on above: Performed By: #### L 500.4050, L101.9900, L501.6710, L100.0100 #### [facility] [address] [place], [address] Absolute Neut 2.9 X10 3/uL Normal 2.0-7.7 [facility] Comment on above: Performed By: #### L 500.4050, L101.9900, L501.6710, L100.0100 #### [facility] [address] [place], [address] Basophils/100 WBC (Bld) 0.8 % Normal 0-1 [facility] Comment on above: Performed By: #### L 500.4050, L101.9900, L501.6710, L100.0100 #### [facility] [address] [place], [address] Eosinophils/100 WBC (Bld) 3.5 % Normal 0-5 [facility] Comment on above: Performed By: #### L 500.4050, L101.9900, L501.6710, L100.0100 #### [facility] [address] [place], [address] Erythrocyte distribution width (RBC) [Ratio] 12.5 % Normal 11.6-14.6 [facility] Comment on above: Performed By: #### L 500.4050, L101.9900, L501.6710, L100.0100 #### [facility] [address] [place], [address] Hematocrit (Bld) [Volume fraction] 40.0 % Normal 37-47 [facility] Comment on above: Performed By: #### L 500.4050, L101.9900, L501.6710, L100.0100 #### [facility] [address] [place], [address] Hemoglobin (Bld) [Mass/Vol] 13.2 g/dL Normal 12.0-15.0 [facility] Comment on above: Performed By: #### L 500.4050, L101.9900, L501.6710, L100.0100 #### [facility] [address] [place], [address] IG% 0.200 Normal 0.0-0.9 [facility] Comment on above: Result Comment: IG% - Immature Granulocytes (promyelocytes, myelocytes and metamyelocytes) > 1% indicates that a LEFT SHIFT is Present. Performed By: #### L 500.4050, L101.9900, L501.6710, L100.0100 #### [facility] [address] [place], [address] Lymphocytes/100 WBC (Bld) 31.1 % Normal 19-41 [facility] Comment on above: Performed By: #### L 500.4050, L101.9900, L501.6710, L100.0100 #### [facility] [address] [place], [address] MCH (RBC) [Entitic mass] 29.6 pg Normal 27.0-32.0 [facility] Comment on above: Performed By: #### L 500.4050, L101.9900, L501.6710, L100.0100 #### [facility] [address] [place], [address] MCHC (RBC) [Mass/Vol] 33.0 g/dL Normal 32-36 [facility] Comment on above: Performed By: #### L 500.4050, L101.9900, L501.6710, L100.0100 #### [facility] [address] [place], [address] MCV (RBC) [Entitic vol] 89.7 fL Normal 81-99 [facility] Comment on above: Performed By: #### L 500.4050, L101.9900, L501.6710, L100.0100 #### [facility] [address] [place], [address] Monocytes/100 WBC (Bld) 5.9 % Normal 0-10 [facility] Comment on above: Performed By: #### L 500.4050, L101.9900, L501.6710, L100.0100 #### [facility] [address] [place], [address] Neutrophils/100 WBC (Bld) 58.5 % Normal 47-70 [facility] Comment on above: Performed By: #### L 500.4050, L101.9900, L501.6710, L100.0100 #### [facility] [address] [place], [address] Nucleated RBC (Bld) [#/Vol] 0 10*3/uL Normal 0-5 [facility] Comment on above: Performed By: #### L 500.4050, L101.9900, L501.6710, L100.0100 #### [facility] [address] [place], [address] Platelet mean volume (Bld) [Entitic vol] 9.2 fL Normal 6.2-12.0 [facility] Comment on above: Performed By: #### L 500.4050, L101.9900, L501.6710, L100.0100 #### [facility] [address] [place], [address] Platelets (Bld) [#/Vol] 352 10*3/uL Normal 150-450 [facility] Comment on above: Performed By: #### L 500.4050, L101.9900, L501.6710, L100.0100 #### [facility] [address] [place], [address] RBC (Bld) [#/Vol] 4.46 10*6/uL Normal 4.2-5.4 [facility] Comment on above: Performed By: #### L 500.4050, L101.9900, L501.6710, L100.0100 #### [facility] [address] [place], [address] RDW SD 41.0 fl Normal 35.1-43.9 [facility] Comment on above: Performed By: #### L 500.4050, L101.9900, L501.6710, L100.0100 #### [facility] [address] [place], [address] WBC (Bld) [#/Vol] 4.9 10*3/uL Normal 4.4-11.0 [facility] Comment on above: Performed By: #### L 500.4050, L101.9900, L501.6710, L100.0100 #### [facility] [address] [place], [address] CDIFF (PCR)on 11-21-2024 CDIFF Pending 027 027 NAP1-B1 Presumptive Negative *for epidemiolologic???use C. Diff PCR Negative- No toxigenic C. Diff Detected Normal [facility] Comment on above: Performed By: #### L 7000.0700, L7000.0300, M7400.3302, M600.5000, L3410.9992, M100.0605, L7000.0750, M100.6796 #### [facility] [address] [place], [address] CRPon 11-21-2024 C-REACTIVE PROT < 3.00 Normal 0.0-3.0 [facility] Comment on above: Performed By: #### L 500.4050, L101.9900, L501.6710, L100.0100 #### [facility] [address] [place], [address] Calprotectin stoolOrdered By : Alin Mehta on 11-21-2024 Calprotectin stool 14 ug/g 0-120 [facility] Comment on above: Concentration Interp retation Follow-Up< 5 - 50 ug/g Normal None>50 -120 ug/g Borderline Re-evaluate in 4-6 weeks >120 ug/g Abnormal Repeat as clinically indicatedPerformed at: [facility] [id number] Director: Joshua Aberu PhD, Phone: [phone] at: [facility] [address] [id number] Director: Delta Hazel MD, Phone: [phone] Carbon dioxide, total [Moles /volume] in Central venous bloodOrdered By: Alin Mehta on 11-21-2024 CO2 [Moles/Vol] 24.4 mmol/L 21.0-32.0 [facility] Chloride assayOrdered By: Ra babita Mehta on 11-21-2024 Chloride [Moles/Vol] 105 mmol/L 98-108 [facility] Clostridium difficile detect ion by polymerase chain reactionOrdered By: Alin Mehta on 11-21-2024 C. difficile DNA DIALLO+probe Ql (Unsp spec) [facility] C. difficile DNA DIALLO+probe Ql (Unsp spec) [facility] Comprehensive Metabolic Prof ilon 11-21-2024 Albumin [Mass/Vol] 4.0 g/dL Normal 3.4-4.8 [facility] Comment on above: Performed By: #### L 500.4050, L101.9900, L501.6710, L100.0100 #### [facility] [address] [place], [address] Albumin/Globulin [Mass ratio] 1.4 {ratio} Normal 0.9-2.4 [facility] Comment on above: Performed By: #### L 500.4050, L101.9900, L501.6710, L100.0100 #### [facility] [address] [place], [address] ALK PHOS 68 U/L Normal 35-104 [facility] Comment on above: Performed By: #### L 500.4050, L101.9900, L501.6710, L100.0100 #### [facility] [address] [place], [address] ALT [Catalytic activity/Vol] 16 U/L Normal <=34 [facility] Comment on above: Result Comment: Hemo lysis present, Results??could be affected. ?? Performed By: #### L 500.4050, L101.9900, L501.6710, L100.0100 #### [facility] [address] [place], [address] AST [Catalytic activity/Vol] 34 U/L High <=31 [facility] Comment on above: Result Comment: Hemo lysis present, Results??could be affected. ?? Performed By: #### L 500.4050, L101.9900, L501.6710, L100.0100 #### [facility] [address] [place], [address] Bilirubin [Mass/Vol] 0.32 mg/dL Normal 0.00-1.30 [facility] Comment on above: Performed By: #### L 500.4050, L101.9900, L501.6710, L100.0100 #### [facility] [address] [place], [address] BUN/CRE 22.2 RATIO High 10-20 [facility] Comment on above: Performed By: #### L 500.4050, L101.9900, L501.6710, L100.0100 #### [facility] [address] [place], [address] Calcium [Mass/Vol] 8.8 mg/dL Normal 7.6-11.0 [facility] Comment on above: Performed By: #### L 500.4050, L101.9900, L501.6710, L100.0100 #### [facility] [address] [place], [address] Chloride [Moles/Vol] 105 mmol/L Normal 98-108 [facility] Comment on above: Performed By: #### L 500.4050, L101.9900, L501.6710, L100.0100 #### [facility] [address] [place], [address] CO2 [Moles/Vol] 24.4 mmol/L Normal 21.0-32.0 [facility] Comment on above: Performed By: #### L 500.4050, L101.9900, L501.6710, L100.0100 #### [facility] [address] [place], [address] Creatinine [Mass/Vol] 0.59 mg/dL Low 0.70-1.20 [facility] Comment on above: Performed By: #### L 500.4050, L101.9900, L501.6710, L100.0100 #### [facility] [address] [place], [address] GAP 10 Normal 5-15 [facility] Comment on above: Performed By: #### L 500.4050, L101.9900, L501.6710, L100.0100 #### [facility] [address] [place], [address] GFR/1.73 sq M.predicted among non-blacks MDRD (S/P/Bld) [Vol rate/Area] 97 mL/min/{1.73_m2} Normal >60 [facility] Comment on above: Result Comment: mL/m in/1.73m2 CKD-EPI Creatinine Equation (2020) Performed By: #### L 500.4050, L101.9900, L501.6710, L100.0100 #### [facility] [address] [place], [address] Globulin (S) [Mass/Vol] 2.8 g/dL Normal 2.2-4.2 [facility] Comment on above: Performed By: #### L 500.4050, L101.9900, L501.6710, L100.0100 #### [facility] [address] [place], [address] Glucose [Mass/Vol] 94 mg/dL Normal 70-99 [facility] Comment on above: Performed By: #### L 500.4050, L101.9900, L501.6710, L100.0100 #### [facility] [address] [place], [address] Potassium [Moles/Vol] 4.1 mmol/L Normal 3.3-5.1 [facility] Comment on above: Result Comment: Hemo lysis present, Results??could be affected. ?? Performed By: #### L 500.4050, L101.9900, L501.6710, L100.0100 #### [facility] [address] [place], [address] Sodium [Moles/Vol] 139 mmol/L Normal 133-145 [facility] Comment on above: Performed By: #### L 500.4050, L101.9900, L501.6710, L100.0100 #### [facility] [address] [place], [address] T PROT 6.8 g/dL Normal 5.9-8.4 [facility] Comment on above: Performed By: #### L 500.4050, L101.9900, L501.6710, L100.0100 #### [facility] [address] [place], [place], [address] Urea nitrogen [Mass/Vol] 13 mg/dL Normal 4-19 [facility] Comment on above: Performed By: #### L 500.4050, L101.9900, L501.6710, L100.0100 #### [facility] [address] [place], [address] Eosinophil percentageOrdered By: Alin Mehta on 11-21-2024 Eosinophils/100 WBC (Bld) 3.5 % 0-5 [facility] Erythrocyte Sed Rateon 11-21 SED RATE 19 mm/hr Normal 0-30 [facility] Comment on above: Performed By: #### L 500.4050, L101.9900, L501.6710, L100.0100 #### [facility] [address] [place], [place], [address] Erythrocyte distribution wid th ratioOrdered By: Alin Mehta on 11-21-2024 Erythrocyte distribution width (RBC) [Ratio] 12.5 % 11.6-14.6 [facility] Erythrocyte distribution wid th standard deviationOrdered By: Alin Mehta on 11-21-2024 Erythrocyte distribution width (RBC) [Ratio] 41.0 fl 35.1-43.9 [facility] Erythrocyte sedimentation ra teOrdered By: Alin Mehta on 11-21-2024 ESR (Bld) [Velocity] 19 mm/h 0-30 [facility] Fecal fat detectionOrdered B y: Alin Mehta on 11-21-2024 Fat Ql (Stl) Normal . [facility] Comment on above: Normal (<100 Droplet s/HPF) Glomerular filtration rate ( GFR) estimation/1.73 sq m using serum, plasma, or whole bOrdered By: Alin Mehta on 11-21-2024 GFR/1.73 sq M.predicted among non-blacks MDRD (S/P/Bld) [Vol rate/Area] 97 mL/min/{1.73_m2} >60 [facility] Comment on above: mL/min/1.73m2 CKD-EP I Creatinine Equation (2020) Hematocrit Auto (Bld) [Volum e fraction]Ordered By: Alin Mehta on 11-21-2024 Hematocrit (Bld) [Volume fraction] 40.0 % 37-47 [facility] Hemoglobin measurementOrdere d By: Alin Mehta on 11-21-2024 Hemoglobin (Bld) [Mass/Vol] 13.2 g/dL 12.0-15.0 [facility] Immature granulocytes/100 WB C Auto (Bld)Ordered By: Alin Mehta on 11-21-2024 Immature granulocytes/100 WBC (Bld) 0.200 % 0.0-0.9 [facility] Comment on above: IG% - Immature Granu locytes (promyelocytes, myelocytes and metamyelocytes) > 1% indicates that a LEFT SHIFT is Present. Laboratory - Chemistry and C hemistry - challengeOrdered By: Alin Mehta on 11-21-2024 AST [Catalytic activity/Vol] 34 U/L High <32 [facility] Comment on above: Hemolysis present, R esults could be affected. MCV (mean corpuscular volume ) determinationOrdered By: Alin Mehta on 11-21-2024 MCV (RBC) [Entitic vol] 89.7 fL 81-99 [facility] Mean corpuscular hemoglobin (MCH) determinationOrdered By: Alni Mehta on 11-21-2024 MCH (RBC) [Entitic mass] 29.6 pg 27.0-32.0 [facility] Mean corpuscular hemoglobin concentration (MCHC) determinationOrdered By: Alin Mehta on 11-21-2024 MCHC (RBC) [Mass/Vol] 33.0 g/dL 32-36 [facility] Mean platelet volume determi nationOrdered By: Alin Mehta on 11-21-2024 Platelet mean volume (Bld) [Entitic vol] 9.2 fL 6.2-12.0 [facility] Monocyte percentageOrdered B y: Alin Mehta on 11-21-2024 Monocytes/100 WBC (Bld) 5.9 % 0-10 [facility] Neutrophil percentageOrdered By: Alin Mehta on 11-21-2024 Neutrophils/100 WBC (Bld) 58.5 % 47-70 [facility] No Panel InformationOrdered By: Alin Mehta on 11-21-2024 Stool Neutral Fats Normal . [facility] Comment on above: Normal (<60 Droplets /HPF) Nucleated red blood cell per centageOrdered By: Alin Mehta on 11-21-2024 Nucleated RBC/100 WBC (Bld) [Ratio] 0 % 0-5 [facility] Platelet countOrdered By: Ra babita Mehta on 11-21-2024 Platelets (Bld) [#/Vol] 352 10*3/uL 150-450 [facility] Potassium measurement (mass/ volume)Ordered By: Alin Mehta on 11-21-2024 Potassium (Unsp spec) [Mass/Vol] 4.1 mmol/L 3.3-5.1 [facility] Comment on above: Hemolysis present, R esults could be affected. RBC Auto (Bld) [#/Vol]Ordere d By: Alin Mehta on 11-21-2024 RBC (Bld) [#/Vol] 4.46 10*6/uL 4.2-5.4 [facility] Serum creatinine measurement (mass/volume)Ordered By: Alin Mehta on 11-21-2024 Creatinine [Mass/Vol] 0.59 mg/dL Low 0.70-1.20 [facility] Serum globulin measurementOr dered By: Alin Mehta on 11-21-2024 Globulin (S) [Mass/Vol] 2.8 g/dL 2.2-4.2 [facility] Serum glucose measurement (m ass/volume)Ordered By: Alin Mehta on 11-21-2024 Glucose [Mass/Vol] 94 mg/dL 70-99 [facility] Serum or plasma C reactive p rotein measurement (mass/volume)Ordered By: Alin Mehta on 11-21-2024 CRP [Mass/Vol] mg/L 0.0-3.0 [facility] Serum or plasma alanine baptiste otransferase (ALT) measurementOrdered By: Alin Mehta on 11-21-2024 ALT [Catalytic activity/Vol] 16 U/L <35 [facility] Comment on above: Hemolysis present, R esults could be affected. Serum or plasma albumin darren urement (mass/volume)Ordered By: Alin Mehta on 11-21-2024 Albumin [Mass/Vol] 4.0 g/dL 3.4-4.8 [facility] Serum or plasma albumin/glob ulin mass ratioOrdered By: Alin Mehta on 11-21-2024 Albumin/Globulin [Mass ratio] 1.4 {ratio} 0.9-2.4 [facility] Serum or plasma alkaline kendell sphatase measurementOrdered By: Alin Mehta on 11-21-2024 ALP [Catalytic activity/Vol] 68 U/L 35-104 [facility] Serum or plasma calcium darren urement (mass/volume)Ordered By: Alin Mehta on 11-21-2024 Calcium [Mass/Vol] 8.8 mg/dL 7.6-11.0 [facility] Serum or plasma urea nitroge n measurement (mass/volume)Ordered By: Alin Mehta on 11-21-2024 Urea nitrogen [Mass/Vol] 13 mg/dL 4-19 [facility] Sodium levelOrdered By: Troy Samuel on 11-21-2024 Sodium [Moles/Vol] 139 mmol/L 133-145 [facility] Stool Lactoferrin/WBCon 10- WBCST Fecal WBC Lactoferri n Negative: No Fecal WBC Lactoferrin present Normal [facility] Comment on above: Performed By: #### L 7000.0700, L7000.0300, M7400.3302, M600.5000, L3410.9992, M100.0605, L7000.0750, M100.6796 #### [facility] [address] [place], [address] Stool lactoferrin detection by immunoassayOrdered By: Alin Mehta on 11-21-2024 Lactoferrin IA Ql (Stl) [facility] Lactoferrin IA Ql (Stl) [facility] Stool pancreatic elastase me asurement (mass/mass)Ordered By: Alin Mehta on 11-21-2024 Elastase.pancreatic (Stl) [Mass/Mass] > 800 >200 [facility] Comment on above: Result Units: ug Adrianna st./g Severe Pancreatic Insufficiency: <100 Moderate Pancreatic Insufficiency: 100 - 200 Normal: >200Performed at: [facility] Lab[address] [id number] Director: Delta Hazel MD, Phone: [phone] Total proteinOrdered By: Hernesto Mehta on 11-21-2024 Protein [Mass/Vol] 6.8 g/dL 5.9-8.4 [facility] White blood cell (WBC) count Ordered By: Alin Mehta on 11-21-2024 WBC (Bld) [#/Vol] 4.9 10*3/uL 4.4-11.0 [facility] Gastroenterology Visit Repor ton 11-18-2024 Gastroenterology Visit Report [facility]astroenterology [address] [place] [address] OFFICE VISIT Date of Service: 11/18/24 MR#: [id number] Acct: [id number] Name: BLANK GONZALEZ Rep #: [id number] : 1955 Provider: Alin Mehta DO Age/Sex: 69/F Location: [place] Status: Signed Intake Intake Visit Reasons: ULCERATIVE COLITIS Allergies Penicillins (PCN) Allergy (Intermediate, Verified 10/24/24 14:13) Rash Sulfa (Sulfonamide Antibiotics) Allergy (Intermediate, Verified 10/24/24 14:13) Rash Medications ???Medication ???Instructions ???Recorded ???Confirmed ???Type acetaminophen 500 mg capsule 500 mg PO Q6H PRN 10/24/24 5 History calcium 600 mg (as carbonate)-vit tab PO 10/24/24 11/18/24 History D3 10 mcg (400 unit) chewable tablet (Calcium 600 with Vitamin D3) estradiol 0.01% (0.1 mg/gram) 1 appful vaginal QDAY 10/24/2412/03 History vaginal cream fluorometholone 0.1 % eye 2 drp ophthalmic (eye) Q6H 2 5 11/18/24 History drops,suspension mesalamine 1.2 gram tablet,delayed 2.4 g PO QDAY 10/24/24 11/18/24 History release (Lialda) multivitamin 1 tab PO QAM 10/24/24 11/18/24 His tory sertraline 25 mg tablet 37.5 mg PO QDAY 10/24/24 11/18/24 History simvastatin 20 mg tablet 20 mg PO QDAY 10/24/24 11/18/24 Hi story Have you fallen in the past year?: No PFSH Medical History (Updated 11/18/24 @ 09:[address] Ogden Friend, DO) Sleep apnea Osteopenia Osteoarthritis Memory changes Breast calcification, left Interstitial cystitis Depression Anxiety Hypercholesteremia Ulcerative colitis Surgical History History of tonsillectomy and adenoidectomy H/O: hysterectomy Family History (Updated 11/18/24 @ 10:35 by Betzy Broderick) Brother Marfan syndrome Asthma Father Myocardial infarction Social History Smoking Status: Never smoker alcohol intake: current alcohol intake frequency: holidays/special occasions only Alcohol type: wine HPI HPI Details: BLANK GONZALEZ, is a 69 F who presents to the office today for initial consult. *BGI established with referral for ulcerative colitis. Pt reports that she has been seeing a Dr in [place], but is trying to transfer her care to [place] so it's closer to home for her. Pt reports she was diagnosed with UC in 2018 and has been on Mesalamine ever since. Pt denies current GI symptoms of concern. Pt's last colonoscopy was in early 2023 and she had a flex-sig in June of 2024 that showed mild colitis, moderate diverticulosis, and small hemorrhoids. ROS Const Constitutional: No fatigue, fever(s) or weight change ENT ENT: No difficulty swallowing Gastro GI: No abdominal pain, belching, bloating, change in bowel habits, change in stool character, coffee ground emesis, constipation, cramping, diarrhea, heartburn, difficulty swallowing, feeling full early, excessive flatus, incontinent of stools, Vomiting blood/hematemesis, Blood in stool, loose stools, Black,tarry stools, nausea/dyspepsia, pain with swallowing, vomiting or other Musc Musculoskeletal: No joint pain Skin Skin: No yellowing of the eye or itchy eyes Psych Psychiatric: No anxiety and No depression Endo Endocrine: No fatigue or weight change Aller/Imm Allergy/Immunologic: No itchy eyes Bill/Lymp Hematologic/Lymphatic: Positive for easy bruising; No easy bleeding Exam Const General: cooperative, healthy appearing, comfortable, no acute distress, well developed and well groomed Nutritional Appearance: well nourished Orientation: oriented x3 HENMT Mouth: oral mucosae normal Teeth and gingiva: dentition normal Eyes Sclera: sclerae normal Resp Effort Inspection: normal respiratory effort Auscultation: Bilateral: Clear to Auscultation Cardio Palpation: normal PMI Rate: regular rate Rhythm: regular rhythm Heart Sounds: S1 normal and S2 normal GI Inspection: normal to inspection Auscultation: normal bowel sounds Percussion: normal to percussion Palpation: soft and no hepatosplenomegaly Assessment and Plan Assessment and Plan (1) Ulcerative colitis: Status: Acute Plan: New patient for transfer of care with ulcerative colitis (UC) complicated by dry eyes, arthritis, arthralgia, and a recent episode of acute diarrhea.: * 69-year-old woman with a history of UC since 2018. * Has been on mesalamine for the past 7 years. * Reports symptoms of dry eyes, arthritis, and arthralgia related to her UC. * Experienced an acute onset of diarrhea in early 2024. * The diarrhea prompted a flexible sigmoidoscopy in June 2024, which revealed focal active colitis in the left side of the colon. Assessment * Ulcerative Colitis (Left-sided, Active):???The p (more content not included)... Normal [facility] BD BONE DENSITY DEXA AXIAL [place] 10-05-2024 BD BONE DENSITY DEXA AXIAL [place] ORIGINAL EXAMINATION: BONE DENSITOMETRY10/05/2024 2:33 pm TECHNIQUE: Dual energy bone densitometry lumbar spine and left hip. COMPARISON: August 22, 2022 HISTORY: Reason for Exam: Osteoporosis Screening FINDINGS: T Score Left Femoral Neck: -1.3 Left Femoral Neck: 0.710 (g/cm2) T Score Left Hip: -1.2 Left Hip: 0.798 (g/cm2) T Score Lumbar Spine: -2.1 Lumbar Spine: 0.821 (g/cm2) BMD Change from previous Hip: -2.6% BMD Change from previous Lumbar Spine: +0.3% FRAX score: 10 year risk major osteoporotic fracture 14 %. 10 year risk hip fracture 2.5 %. The BHOF f/k/a NOF recommends that FDA-approved medical therapies be considered in post-menopausal women and men age >/= 50 years with a: * Hip or vertebral fracture, or * T-score of /= 20% for major osteoporotic fractures or * >/= 3% for hip fractures All treatment decisions require clinical judgement and consideration of individual patient factors, including patient preferences, comorbidities, previous drug use, risk factors not captured in the FRAX registered model (e.g., frailty, falls, vitamin D deficiency, increased bone turnover, interval significant decline in bone density) and possible under- or over-estimation of fracture risk by FRAX. IMPRESSION: Osteopenia. Interpreted by: Jaun Anderson MD Preliminary Report By: Jaun Anderson MD Electronically signed By Jaun Anderson MD Dictated Date: 10/05/2024 3:02:14 PM Prelim Date: 10/05/2024 3:03:20 PM Sign Date: 10/05/2024 3:03:20 PM Ordering Provider: GRIS PARKINSON [facility] Final Surgical Pathology Rep [facility] 06-15-2024 Final Surgical Pathology Report . Pathology Reports Accession: Collected Date/Time: Received Date/Time: Pathologist: [id number] 06/14/2024 07:27 EDT 06/14/2024 11:44 EDT ALEJANDRA SOSA MD Final Surgical Pathology Report DIAGNOSIS: A. RECTAL BIOPSY: - FOCAL ACTIVE PROCTITIS, SEE COMMENT B. SIGMOID COLON BIOPSY: - FOCAL ACTIVE COLITIS, SEE COMMENT Comment: Both biopsies show colorectal mucosa with overall preserved architecture. Increase in chronic inflammatory cells in lamina propria noted, with a top-heavy distribution. No significant intraepithelial lymphocytosis. Several foci of cryptitis identified. The differential diagnosis includes self-limited colitis and early IBD, among others. No granulomas present. Negative for dysplasia. Correlation with clinical and endoscopic findings recommended. CLINICAL INFORMATION: ULCERATIVE COLITIS SPECIMEN: A RECTAL BX B SIGMOID BX GROSS DESCRIPTION: All parts labelled with patient name and [id number] A. Received in formalin labeled rectal biopsy are 6 vásquez-pink tissue fragments measuring 0.3 x 0.2 to 0.8 x 0.3 cm greatest dimension. TS-1 B. Received in formalin labeled sigmoid biopsy are multiple vásquez-pink tissue fragments aggregating 1.7 x 0.3 x 0.2 cm greatest dimension. TS-1 Charley Tsai, Grossing [employer] Builder/ Dr. Quinn Martinez, Pathologist Performed by Charley Tsai MICROSCOPIC DESCRIPTION: The microscopic examination is performed, except in the case of Gross Only. Verified by Pathology Report verified by [facility] ALEJANDRA SOSA Sign out Date: 06/15/2024 11:27 Performing Lab: [facility], [address] [place] [address] Pathology Dept Disclaimer If ancillary studies were utilized, the following Laboratory Developed Test (LDT) disclaimer will apply: Under CLIA requirements, [facility] is qualified to perform high complexity testing. For all ancillary stains, positive and negative controls stain appropriately. Performance characteristics of immunohistochemical and chromogenic in-situ hybridization tests have been determined by [facility]. These tests are used for clinical purposes, They should not be regarded as investigational or for research. . Normal [facility] MUMPMon 05-26-2024 Mumps IgM Abs <0.80 Normal 0.00-0.79 [facility] Comment on above: Result Comment: Test performed by [facility], [place], [facility] Negative < 0.80 Borderline 0.80 - 1.20 Positive > 1.20 Note: The presence of IgM specific antibody should be interpreted in conjunction with the patient's clinical history and exposure risk when an acute infection is suspected. Performed At: [address] [id number] Ilir Sorenson MD Ph:[phone] Performed By: #### 0 [id number], [id number] #### [facility] [address] [place], [place] [address] #### LINDA #### [place] [address] RUBEOon 05-17-2024 Rubeola IgG Ab Positive Normal [facility] Comment on above: Result Comment: INTE RPRETATION OF RUBEOLA (MEASLES) IgG BY EIA: Negative: No detectable Measles IgG antibody. Presumed non-immune to measles virus. Positive: Measles IgG antibody Detected. Presumed immune to measles virus. If clinically indicated, order Measles IgM to rule out active infection. Equivocal: Equivocal for antibodies to Measles. Suggest repeat testing 10-14 days. Performed By: #### 0 [id number], [id number] #### [place] [address] #### RUBEO #### [place] [address] RUBMon 05-14-2024 Rubella IgM Abs <20.0 Normal 0.0-19.9 [facility] Comment on above: Result Comment: Nega tive <20.0 Equivocal 20.0 - 24.9 Positive >24.9 Performed At: [facility] [address] [id number] Brady Lewis PhD Ph:[phone] Performed By: #### 0 [id number], [id number] #### [place] [address] #### RUBEO #### [place] [address] .Auto Diffon 04-20-2024 Basophil, Absolute 0.0 10 3/mcL Normal 0.0-0.2 [facility] Comment on above: Performed By: #### C BC, ADIFF, ANEU, GFR, CMP #### [address] [address] Basophils/100 WBC (Bld) 0.5 % Normal 0.0-2.5 [facility] Comment on above: Performed By: #### C BC, ADIFF, ANEU, GFR, CMP #### [address] [address] Eosinophil, Absolute 0.2 10 3/mcL Normal 0.0-0.7 [facility] Comment on above: Performed By: #### C BC, ADIFF, ANEU, GFR, CMP #### [address] [address] Eosinophils/100 WBC (Bld) 3.0 % Normal 0.0-7.0 [facility] Comment on above: Performed By: #### C BC, ADIFF, ANEU, GFR, CMP #### [address] [address] Lymphocyte, Absolute 1.6 10 3/mcL Normal 0.9-4.3 [facility] Comment on above: Performed By: #### C BC, ADIFF, ANEU, GFR, CMP #### [address] [address] Lymphocytes/100 WBC (Bld) 31.3 % Normal 20.0-40.0 [facility] Comment on above: Performed By: #### C BC, ADIFF, ANEU, GFR, CMP #### [address] [address] Monocyte, Absolute 0.4 10 3/mcL Normal 0.1-1.4 [facility] Comment on above: Performed By: #### C BC, ADIFF, ANEU, GFR, CMP #### [address] [address] Monocytes/100 WBC (Bld) 7.1 % Normal 2.0-13.0 [facility] Comment on above: Performed By: #### C BC, ADIFF, ANEU, GFR, CMP #### [address] [address] Neutrophils/100 WBC (Bld) 58.1 % Normal 50.0-75.0 [facility] Comment on above: Performed By: #### C BC, ADIFF, ANEU, GFR, CMP #### [address] [address] .GFRon 04-20-2024 Estimated Glomerular Filtration Rate 88 ml/min/1.73sqm Normal [facility] Comment on above: Result Comment: Stages of Chronic Kidney Disease (CKD) Stage Description eGFR(ml/min/1.73 sq.m.) CKD 1 Normal kidney function or >=90 normal kindney function with possible kidney damage (ex. Proteinuria) CKD 2 Kidney damage with mild loss 60-89 of kidney function CKD 3a Mild to moderate loss of kidney 45-59 function CKD 3b Moderate to severe loss of 30-44 of kindey function CKD 4 Severe loss of kidney function 15-29 CKD 5 Kidney failure <15 Note: (go live 2024) the eGFR calculation was updated to the 2020 CKD-EPI creatinine equation without a race factor to calculate the eGFR results. Performed By: #### C BC, ADIFF, ANEU, GFR, CMP #### [place] [address] .NEUABSon 04-20-2024 Neutrophil, Absolute 3.0 10 3/mcL Normal 2.3-8.1 [facility] Comment on above: Performed By: #### C BC, ADIFF, ANEU, GFR, CMP #### [place] [address] CBCon 04-20-2024 Erythrocyte distribution width (RBC) [Ratio] 13.8 % Normal 11.5-15.5 [facility] Comment on above: Performed By: #### C BC, ADIFF, ANEU, GFR, CMP #### [place] [address] Hematocrit (Bld) [Volume fraction] 39.5 % Normal 34.0-46.0 [facility] Comment on above: Performed By: #### C BC, ADIFF, ANEU, GFR, CMP #### [place] [address] Hgb 13.2 G/dL Normal 12.0-16.0 [facility] Comment on above: Performed By: #### C BC, ADIFF, ANEU, GFR, CMP #### [place] [address] MCH (RBC) [Entitic mass] 29.4 pg Normal 27.0-33.0 [facility] Comment on above: Performed By: #### C BC, ADIFF, ANEU, GFR, CMP #### [address] [address] MCHC 33.4 G/dL Normal 32.0-36.0 [facility] Comment on above: Performed By: #### C BC, ADIFF, ANEU, GFR, CMP #### [address] [address] MCV (RBC) [Entitic vol] 88.0 fL Normal 80.0-99.0 [facility] Comment on above: Performed By: #### C BC, ADIFF, ANEU, GFR, CMP #### [address] [address] Platelet 329 10 3/mcL Normal 150-450 [facility] Comment on above: Performed By: #### C BC, ADIFF, ANEU, GFR, CMP #### [address] [address] Platelet mean volume (Bld) [Entitic vol] 7.4 fL Normal 6.6-10.5 [facility] Comment on above: Performed By: #### C BC, ADIFF, ANEU, GFR, CMP #### [address] [address] RBC 4.49 10 6/mcL Normal 4.10-5.30 [facility] Comment on above: Performed By: #### C BC, ADIFF, ANEU, GFR, CMP #### [address] [address] WBC 5.1 10 3/mcL Normal 4.5-10.8 [facility] Comment on above: Performed By: #### C BC, ADIFF, ANEU, GFR, CMP #### [address] [address] CMPon 04-20-2024 Albumin Level 3.6 G/dL Normal 3.4-4.8 [facility] Comment on above: Performed By: #### C BC, ADIFF, ANEU, GFR, CMP #### [address] [address] Albumin/Globulin [Mass ratio] 1.2 {ratio} Normal 1.1-2.5 [facility] Comment on above: Performed By: #### C BC, ADIFF, ANEU, GFR, CMP #### [place] [address] ALP [Catalytic activity/Vol] 81 U/L Normal 40-135 [facility] Comment on above: Performed By: #### C BC, ADIFF, ANEU, GFR, CMP #### [place] [address] ALT [Catalytic activity/Vol] 25 U/L Normal 14-59 [facility] Comment on above: Performed By: #### C BC, ADIFF, ANEU, GFR, CMP #### [place] [address] AST [Catalytic activity/Vol] 31 U/L Normal 10-40 [facility] Comment on above: Performed By: #### C BC, ADIFF, ANEU, GFR, CMP #### [place] [address] Bili Total 0.4 mg/dL Normal 0.2-1.0 [facility] Comment on above: Result Comment: Use of this assay is not recommended for patients undergoing treatment with eltrombopag due to the potential for falsely elevated results. Performed By: #### C BC, ADIFF, ANEU, GFR, CMP #### [place] [address] BUN/Creatinine Ratio 18 ratio Normal 7-27 [facility] Comment on above: Performed By: #### C BC, ADIFF, ANEU, GFR, CMP #### [place] [address] Calcium [Mass/Vol] 9.0 mg/dL Normal 8.4-10.2 [facility] Comment on above: Performed By: #### C BC, ADIFF, ANEU, GFR, CMP #### [place] [address] Chloride [Moles/Vol] 107 mmol/L Normal 98-107 [facility] Comment on above: Performed By: #### C BC, ADIFF, ANEU, GFR, CMP #### [address] [address] CO2 [Moles/Vol] 28 mmol/L Normal 23-31 [facility] Comment on above: Performed By: #### C BC, ADIFF, ANEU, GFR, CMP #### [address] [address] Creatinine [Mass/Vol] 0.74 mg/dL Normal 0.55-1.02 [facility] Comment on above: Result Comment: Test ing performed on Siemens Dimension EXL analyzer using a modified kinetic Belkis technique. Performed By: #### C BC, ADIFF, ANEU, GFR, CMP #### [address] [address] Electrolyte Balance 7.0 mEq/L Normal 4.0-15.0 [facility] Comment on above: Performed By: #### C BC, ADIFF, ANEU, GFR, CMP #### [address] [address] Globulin 3.1 G/dL Normal 1.5-3.8 [facility] Comment on above: Performed By: #### C BC, ADIFF, ANEU, GFR, CMP #### [address] [address] Glucose [Mass/Vol] 89 mg/dL Normal 80-115 [facility] Comment on above: Performed By: #### C BC, ADIFF, ANEU, GFR, CMP #### [address] [address] Potassium [Moles/Vol] 4.4 mmol/L Normal 3.5-5.1 [facility] Comment on above: Performed By: #### C BC, ADIFF, ANEU, GFR, CMP #### [address] [address] Sodium [Moles/Vol] 142 mmol/L Normal 136-145 [facility] Comment on above: Performed By: #### C BC, ADIFF, ANEU, GFR, CMP #### [facility] [address] [place], [place] [address] Total Protein 6.7 G/dL Normal 6.4-8.2 [facility] Comment on above: Performed By: #### C BC, ADIFF, ANEU, GFR, CMP #### [facility] [address] [place], [place] [address] Urea nitrogen [Mass/Vol] 13 mg/dL Normal 7-18 [facility] Comment on above: Performed By: #### C BC, ADIFF, ANEU, GFR, CMP #### [facility] [address] [place], [place] [address] [place] MAMMOGRAM DIAGNOSTIC BILA TERAL W/TOMOon 02-18-2024 [place] MAMMOGRAM DIAGNOSTIC BILATERAL W/CHRIS ORIGINAL FROM: [address] [address] PROCEDURE FOR: BLANK OGNZALEZ [address] [place] [id number] Home: PID#: [id number] Exam#: [id number] : 1955 Age: 68 TO: MELODIE FORTUNE APRN [place] [address] Fax: NO FAX EXAMINATION: DIAGNOSTIC BILATERAL MAMMOGRAM WITH TOMOSYNTHESIS, 02/18/2024 1:21 pm TECHNIQUE: Tomosynthesis was performed as part of the diagnostic bilateral mammogram. 2D standard and 3D tomosynthesis combination imaging performed. Current study was also evaluated with a Computer Aided Detection (CAD) system. COMPARISON: August 06, 2023, January 16, 2023, July 10, 2022, June 20, 2022, December 16, 2021, August 17, 2020 HISTORY: ORDERING SYSTEM PROVIDED HISTORY: Reason for Exam: Left calcifications follow-up FINDINGS: BREAST DENSITY: The breasts are heterogeneously dense, which may obscure small masses. In the right breast, there is a biopsy clip with associated calcifications which yielded benign pathology results on stereotactic biopsy. In the left breast at 1 o'clock middle depth, there is a stable 3.9 cm region of punctate calcifications. No other significant masses, calcifications, or other findings. IMPRESSION: Stable region of punctate calcifications in the left breast at 1 o'clock middle depth, demonstrating 2 years of stability, benign. No mammographic evidence of malignancy in the right breast. The patient may return to annual mammographic screening. BIRADS: BI-RADS: 2: Benign RECALL: return to screening RECALL TYPE: mammo LETTER SENT: Normal BI-RADS 1 and 2 Interpreted by: Gunjan Umana Preliminary Report By: Gunjan Umana Electronically signed By Gunjan Umana Dictated Date: 02/18/2024 3:27:58 PM Prelim Date: 02/18/2024 3:29:45 PM Sign Date: 02/18/2024 3:29:45 PM Ordering Provider: MELODIE FORTUNE CLINICAL: CALCIFICATIONS LEFT BREAST 6 MONTH FOLLOW-UP. Road Machinery Inspector: LEON IYER RT (R) (M) letter sent: Normal BI-RADS 1 and 2 Mammogram BI-RADS: 2 Benign Normal [facility] MAMMOGRAM DIAGNOSTIC LEFT on 08-06-2023 [place] MAMMOGRAM DIAGNOSTIC LEFT ORIGINAL FROM: [address] [address] PROCEDURE FOR: BLANK GONZALEZ [address] [place] [address] [place] [address] Home: PID#: [id number] Exam#: [id number] : 1955 Age: 68 TO: MELODIE FORTUNE APRN [place] [address] Fax: NO FAX EXAMINATION: DIAGNOSTIC DIGITAL LEFT BREAST MAMMOGRAM, 08/06/2023 2:11 pm TECHNIQUE: Diagnostic mammography of the left breast was performed. Current study was also evaluated with a Computer Aided Detection (CAD) system. COMPARISON: 01/16/2023 HISTORY: ORDERING SYSTEM PROVIDED HISTORY: Reason for Exam: 6-month follow-up left calcifications FINDINGS: BREAST DENSITY: The breasts are heterogeneously dense, which may obscure small masses. Region of punctate calcifications measuring approximately 3.9 cm in the left breast 1 o'clock middle depth is not significantly changed. No significant masses, calcifications, or other findings. IMPRESSION: No change from the prior study. Six-month follow-up mammogram is recommended to document stability. The patient will be due for bilateral mammography at that time. BIRADS: BI-RADS: 3: Probably Benign RECALL: 6 month follow-up RECALL TYPE: mammo LETTER SENT: Probably Benign BI-RADS 3 Interpreted by: Rafita Del Real MD Preliminary Report By: Rafita Del Real MD Electronically signed By Rafita Del Real MD Dictated Date: 08/06/2023 3:33:20 PM Prelim Date: 08/06/2023 3:38:01 PM Sign Date: 08/06/2023 3:38:01 PM Ordering Provider: MELODIE FORTUNE CLINICAL: 6 MONTHS FOLLOW-UP CALCIFICATIONS LEFT BREAST 1 O'CLOCK. Road Machinery Inspector: DAHIANA HARPER RT(R)(M) letter sent: Probably Benign BI-RADS 3 Mammogram BI-RADS: 3 Probably benign Normal [facility] ([place]) .Auto Diffon 06-23-2023 Basophil, Absolute 0.0 10 3/mcL Normal 0.0-0.2 [facility] ([place]) Comment on above: Performed By: #### L IPID, ANEU, GFR, CBC, ADIFF, CMP #### [address] [address] Basophils/100 WBC (Bld) 0.6 % Normal 0.0-2.5 [facility] ([place]) Comment on above: Performed By: #### L IPID, ANEU, GFR, CBC, ADIFF, CMP #### [address] [address] Eosinophil, Absolute 0.2 10 3/mcL Normal 0.0-0.4 [facility] ([place]) Comment on above: Performed By: #### L IPID, ANEU, GFR, CBC, ADIFF, CMP #### [address] [address] Eosinophils/100 WBC (Bld) 3.5 % Normal 0.0-7.0 [facility] ([place]) Comment on above: Performed By: #### L IPID, ANEU, GFR, CBC, ADIFF, CMP #### [address] [address] Lymphocyte, Absolute 1.5 10 3/mcL Normal 0.8-3.9 [facility] ([place]) Comment on above: Performed By: #### L IPID, ANEU, GFR, CBC, ADIFF, CMP #### [address] [address] Lymphocytes/100 WBC (Bld) 28.5 % Normal 10.0-50.0 [facility] ([place]) Comment on above: Performed By: #### L IPID, ANEU, GFR, CBC, ADIFF, CMP #### [address] [address] Monocyte, Absolute 0.4 10 3/mcL Normal 0.2-1.0 [facility] ([place]) Comment on above: Performed By: #### L IPID, ANEU, GFR, CBC, ADIFF, CMP #### [address] [address] Monocytes/100 WBC (Bld) 7.3 % Normal 1.7-13.0 [facility] ([place]) Comment on above: Performed By: #### L IPID, ANEU, GFR, CBC, ADIFF, CMP #### [address] [address] Neutrophils/100 WBC (Bld) 60.1 % Normal 37.0-80.0 [facility] ([place]) Comment on above: Performed By: #### L IPID, ANEU, GFR, CBC, ADIFF, CMP #### [address] [address] .GFRon 06-23-2023 GFR Non- 86 ml/min/1.73sqm Normal [facility] ([place]) Comment on above: Result Comment: GFR Population mean for , Non- Americans Ages 20-29 = 116 mL/min/1.73 sq.m. Ages 30-39 = 107 mL/min/1.73 sq.m. Ages 40-49 = 99 mL/min/1.73 sq.m. Ages 50-59 = 93 mL/min/1.73 sq.m. Ages 60-69 = 85 mL/min/1.73 sq.m. Ages 70+ = 75 mL/min/1.73 sq.m. Chronic Kidney Disease: Less than 60 mL/min/1.73 square meters End Stage Renal Disease: Less than 15 mL/min/1.73 square meters Performed By: #### L IPID, ANEU, GFR, CBC, ADIFF, CMP #### [address] [address] GFR 104 ml/min/1.73sqm Normal [facility] ([place]) Comment on above: Result Comment: GFR Population mean for , Non- Americans Ages 20-29 = 116 mL/min/1.73 sq.m. Ages 30-39 = 107 mL/min/1.73 sq.m. Ages 40-49 = 99 mL/min/1.73 sq.m. Ages 50-59 = 93 mL/min/1.73 sq.m. Ages 60-69 = 85 mL/min/1.73 sq.m. Ages 70+ = 75 mL/min/1.73 sq.m. Chronic Kidney Disease: Less than 60 mL/min/1.73 square meters End Stage Renal Disease: Less than 15 mL/min/1.73 square meters Performed By: #### L IPID, ANEU, GFR, CBC, ADIFF, CMP #### [address] [address] .NEUABSon 06-23-2023 Neutrophil, Absolute 3.2 10 3/mcL Normal 2.9-6.2 [facility] ([place]) Comment on above: Performed By: #### L IPID, ANEU, GFR, CBC, ADIFF, CMP #### [address] [address] CBCon 06-23-2023 Erythrocyte distribution width (RBC) [Ratio] 13.2 % Normal 11.5-14.5 [facility] ([place]) Comment on above: Performed By: #### L IPID, ANEU, GFR, CBC, ADIFF, CMP #### [address] [address] Hematocrit (Bld) [Volume fraction] 39.3 % Normal 37.0-47.0 [facility] ([place]) Comment on above: Performed By: #### L IPID, ANEU, GFR, CBC, ADIFF, CMP #### [address] [address] Hgb 13.3 G/dL Normal 12.0-16.0 [facility] ([place]) Comment on above: Performed By: #### L IPID, ANEU, GFR, CBC, ADIFF, CMP #### [place] [address] MCH (RBC) [Entitic mass] 29.6 pg Normal 27.0-31.2 [facility] ([place]) Comment on above: Performed By: #### L IPID, ANEU, GFR, CBC, ADIFF, CMP #### [place] [address] MCHC 34.0 G/dL Normal 33.0-37.0 [facility] ([place]) Comment on above: Performed By: #### L IPID, ANEU, GFR, CBC, ADIFF, CMP #### [place] [address] MCV (RBC) [Entitic vol] 87.3 fL Normal 80.0-94.0 [facility] ([place]) Comment on above: Performed By: #### L IPID, ANEU, GFR, CBC, ADIFF, CMP #### [place] [address] Platelet 328 10 3/mcL Normal 130-400 [facility] ([place]) Comment on above: Performed By: #### L IPID, ANEU, GFR, CBC, ADIFF, CMP #### [place] [address] Platelet mean volume (Bld) [Entitic vol] 7.5 fL Normal 7.4-10.4 [facility] ([place]) Comment on above: Performed By: #### L IPID, ANEU, GFR, CBC, ADIFF, CMP #### [address] [address] RBC 4.50 10 6/mcL Normal 4.20-5.40 [facility] ([place]) Comment on above: Performed By: #### L IPID, ANEU, GFR, CBC, ADIFF, CMP #### [address] [address] WBC 5.3 10 3/mcL Normal 4.6-10.8 [facility] ([place]) Comment on above: Performed By: #### L IPID, ANEU, GFR, CBC, ADIFF, CMP #### [address] [address] CMPon 06-23-2023 Albumin Level 3.6 G/dL Normal 3.4-4.8 [facility] ([place]) Comment on above: Performed By: #### L IPID, ANEU, GFR, CBC, ADIFF, CMP #### [address] [address] Albumin/Globulin [Mass ratio] 1.1 {ratio} Normal 1.1-2.5 [facility] ([place]) Comment on above: Performed By: #### L IPID, ANEU, GFR, CBC, ADIFF, CMP #### [address] [address] ALP [Catalytic activity/Vol] 74 U/L Normal 40-135 [facility] ([place]) Comment on above: Performed By: #### L IPID, ANEU, GFR, CBC, ADIFF, CMP #### [address] [address] ALT [Catalytic activity/Vol] 28 U/L Normal 14-59 [facility] ([place]) Comment on above: Performed By: #### L IPID, ANEU, GFR, CBC, ADIFF, CMP #### [address] [address] AST [Catalytic activity/Vol] 20 U/L Normal 10-40 [facility] ([place]) Comment on above: Performed By: #### L IPID, ANEU, GFR, CBC, ADIFF, CMP #### [address] [address] Bili Total 0.5 mg/dL Normal 0.2-1.0 [facility] ([place]) Comment on above: Result Comment: Use of this assay is not recommended for patients undergoing treatment with eltrombopag due to the potential for falsely elevated results. Performed By: #### L IPID, ANEU, GFR, CBC, ADIFF, CMP #### [address] [address] BUN/Creatinine Ratio 28 ratio High 7-27 [facility] ([place]) Comment on above: Performed By: #### L IPID, ANEU, GFR, CBC, ADIFF, CMP #### [address] [address] Calcium [Mass/Vol] 8.7 mg/dL Normal 8.4-10.2 [facility] ([place]) Comment on above: Performed By: #### L IPID, ANEU, GFR, CBC, ADIFF, CMP #### [address] [address] Chloride [Moles/Vol] 104 mmol/L Normal 98-107 [facility] ([place]) Comment on above: Performed By: #### L IPID, ANEU, GFR, CBC, ADIFF, CMP #### [address] [address] CO2 [Moles/Vol] 29 mmol/L Normal 23-31 [facility] ([place]) Comment on above: Performed By: #### L IPID, ANEU, GFR, CBC, ADIFF, CMP #### [address] [address] Creatinine [Mass/Vol] 0.68 mg/dL Normal 0.55-1.02 [facility] ([place]) Comment on above: Performed By: #### L IPID, ANEU, GFR, CBC, ADIFF, CMP #### [address] [address] Electrolyte Balance 8.0 mEq/L Normal 4.0-15.0 [facility] ([place]) Comment on above: Performed By: #### L IPID, ANEU, GFR, CBC, ADIFF, CMP #### [address] [address] Globulin 3.2 G/dL Normal [facility] ([place]) Comment on above: Performed By: #### L IPID, ANEU, GFR, CBC, ADIFF, CMP #### [address] [address] Glucose [Mass/Vol] 97 mg/dL Normal 80-115 [facility] ([place]) Comment on above: Performed By: #### L IPID, ANEU, GFR, CBC, ADIFF, CMP #### [address] [address] Potassium [Moles/Vol] 4.3 mmol/L Normal 3.5-5.1 [facility] ([place]) Comment on above: Performed By: #### L IPID, ANEU, GFR, CBC, ADIFF, CMP #### [address] [address] Sodium [Moles/Vol] 141 mmol/L Normal 136-145 [facility] ([place]) Comment on above: Performed By: #### L IPID, ANEU, GFR, CBC, ADIFF, CMP #### [address] [address] Total Protein 6.8 G/dL Normal 6.4-8.2 [facility] ([place]) Comment on above: Performed By: #### L IPID, ANEU, GFR, CBC, ADIFF, CMP #### [address] [address] Urea nitrogen [Mass/Vol] 19 mg/dL High 7-18 [facility] ([place]) Comment on above: Performed By: #### L IPID, ANEU, GFR, CBC, ADIFF, CMP #### [address] [address] LABORATORYOrdered By: SYSTEM SYSTEM on 06-23-2023 Albumin BCP dye [Mass/Vol] 3.6 G/dL Normal 3.4 - 4.8 G/dL AO ADM SS Albumin/Globulin [Mass ratio] 1.1 {ratio} Normal 1.1 - 2.5 ratio AO ADM SS ALP [Catalytic activity/Vol] 74 U/L Normal 40 - 135 U/L AO ADM SS ALT With P-5'-P [Catalytic activity/Vol] 28 U/L Normal 14 - 59 U/L AO ADM SS AST With P-5'-P [Catalytic activity/Vol] 20 U/L Normal 10 - 40 U/L AO ADM SS Basophil, Absolute 0.0 103/mcL Normal 0.0 - 0.2 10^3/mcL AO Workflow SS Basophils/100 WBC (Bld) 0.6 % Normal 0.0 - 2.5 % AO Workflow SS Bilirubin [Mass/Vol] 0.5 mg/dL Normal 0.2 - 1 .0 mg/dL AO ADM SS Comment on above: Interpretive Data: U se of this assay is not recommended for patients undergoing treatment with eltrombopag due to the potential for falsely elevated results. Calcium [Mass/Vol] 8.7 mg/dL Normal 8.4 - 10. 2 mg/dL AO ADM SS Chloride [Moles/Vol] 104 mmol/L Normal 98 - 10 7 mmol/L AO ADM SS CO2 [Moles/Vol] 29 mmol/L Normal 23 - 31 mmol/L AO ADM SS Creatinine [Mass/Vol] 0.68 mg/dL Normal 0.55 - 1.02 mg/dL AO ADM SS Electrolyte Balance 8.0 mEq/L Normal 4.0 - 15 .0 mEq/L AO ADM SS Eosinophil, Absolute 0.2 103/mcL Normal 0.0 - 0 .4 10^3/mcL AO Workflow SS Eosinophils/100 WBC (Bld) 3.5 % Normal 0.0 - 7.0 % AO Workflow SS Erythrocyte distribution width (RBC) [Ratio] 13.2 % Normal 11.5 - 14.5 % AO Workflow SS GFR/1.73 sq M.predicted among blacks MDRD (S/P/Bld) [Vol rate/Area] 104 ml/min/1.73sqm Invalid Interpretation Code AO Chemistry S Comment on above: Interpretive Data: GFR Population mean for , Non- Americans Ages 20-29 = 116 mL/min/1.73 sq.m. Ages 30-39 = 107 mL/min/1.73 sq.m. Ages 40-49 = 99 mL/min/1.73 sq.m. Ages 50-59 = 93 mL/min/1.73 sq.m. Ages 60-69 = 85 mL/min/1.73 sq.m. Ages 70+ = 75 mL/min/1.73 sq.m. Chronic Kidney Disease: Less than 60 mL/min/1.73 square meters End Stage Renal Disease: Less than 15 mL/min/1.73 square meters GFR/1.73 sq M.predicted among non-blacks MDRD (S/P/Bld) [Vol rate/Area] 86 ml/min/1.73sqm Invalid Interpretation Code AO Chemistry S Comment on above: Interpretive Data: GFR Population mean for , Non- Americans Ages 20-29 = 116 mL/min/1.73 sq.m. Ages 30-39 = 107 mL/min/1.73 sq.m. Ages 40-49 = 99 mL/min/1.73 sq.m. Ages 50-59 = 93 mL/min/1.73 sq.m. Ages 60-69 = 85 mL/min/1.73 sq.m. Ages 70+ = 75 mL/min/1.73 sq.m. Chronic Kidney Disease: Less than 60 mL/min/1.73 square meters End Stage Renal Disease: Less than 15 mL/min/1.73 square meters Globulin 3.2 G/dL Invalid Interpretation Code AO ADM SS Glucose [Mass/Vol] 97 mg/dL Normal 80 - 115 mg/dL AO ADM SS Hematocrit (Bld) [Volume fraction] 39.3 % Normal 37.0 - 47.0 % AO Workflow SS Hemoglobin (Bld) [Mass/Vol] 13.3 G/dL Normal 12.0 - 16.0 G/dL AO Workflow SS Lymphocyte, Absolute 1.5 103/mcL Normal 0.8 - 3 .9 10^3/mcL AO Workflow SS Lymphocytes/100 WBC (Bld) 28.5 % Normal 10.0 - 50.0 % AO Workflow SS MCH (RBC) [Entitic mass] 29.6 pg Normal 27.0 - 31.2 pg AO Workflow SS MCHC 34.0 G/dL Normal 33.0 - 37.0 G/dL AO Workflow SS MCV (RBC) [Entitic vol] 87.3 fL Normal 80.0 - 94.0 fL AO Workflow SS Monocyte, Absolute 0.4 103/mcL Normal 0.2 - 1.0 10^3/mcL AO Workflow SS Monocytes/100 WBC (Bld) 7.3 % Normal 1.7 - 13.0 % AO Workflow SS Neutrophil, Absolute 3.2 103/mcL Normal 2.9 - 6 .2 10^3/mcL AO Workflow SS Neutrophils/100 WBC (Bld) 60.1 % Normal 37.0 - 80.0 % AO Workflow SS Platelet mean volume (Bld) [Entitic vol] 7.5 fL Normal 7.4 - 10.4 fL AO Workflow SS Platelets (Bld) [#/Vol] 328 103/mcL Normal 130 - 400 10^3/mcL AO Workflow SS Potassium [Moles/Vol] 4.3 mmol/L Normal 3.5 - 5.1 mmol/L AO ADM SS Protein [Mass/Vol] 6.8 G/dL Normal 6.4 - 8.2 G/dL AO ADM SS RBC (Bld) [#/Vol] 4.50 106/mcL Normal 4.20 - 5.40 10^6/mcL AO Workflow SS Sodium [Moles/Vol] 141 mmol/L Normal 136 - 145 mmol/L AO ADM SS Urea nitrogen [Mass/Vol] 19 mg/dL High 7 - 18 mg/dL AO ADM SS Urea nitrogen/Creatinine [Mass ratio] 28 ratio High 7 - 27 ratio AO ADM SS WBC (Bld) [#/Vol] 5.3 103/mcL Normal 4.6 - 10.8 10^3/mcL AO Workflow SS LABORATORYOrdered By: Lola Bucio on 06-23-2023 Cholesterol [Mass/Vol] 190 mg/dL Normal 0 - 2 00 mg/dL AO ADM SS Comment on above: Interpretive Data: C holesterol Reference Interval: Less than 200 Desirable 200-239 Borderline high risk 240 and above High risk Cholesterol in HDL [Mass/Vol] 63 mg/dL High 40 - 60 mg/dL AO ADM SS Cholesterol in LDL [Mass/Vol] 97 mg/dL Normal 0 - 130 mg/dL AO ADM SS Triglyceride [Mass/Vol] 148 mg/dL Normal 0 - 150 mg/dL AO ADM SS Comment on above: Interpretive Data: T riglyceride Reference Interval: Less than 150 Normal 150-199 Borderline high risk 200-499 High risk 500 or higher Very high risk LIPIDon 06-23-2023 Cholesterol [Mass/Vol] 190 mg/dL Normal 0-200 [facility] ([place]) Comment on above: Result Comment: Chol esterol Reference Interval: Less than 200 Desirable 200-239 Borderline high risk 240 and above High risk Performed By: #### L IPID, ANEU, GFR, CBC, ADIFF, CMP #### [place] [address] [place], [place] [address] Cholesterol in HDL [Mass/Vol] 63 mg/dL High 40-60 [facility] ([place]) Comment on above: Performed By: #### L IPID, ANEU, GFR, CBC, ADIFF, CMP #### [place] [address] [place], [place] [address] Cholesterol in LDL [Mass/Vol] 97 mg/dL Normal 0-130 [facility] ([place]) Comment on above: Performed By: #### L IPID, ANEU, GFR, CBC, ADIFF, CMP #### [address] [address] Triglyceride [Mass/Vol] 148 mg/dL Normal 0-150 [facility] ([place]) Comment on above: Result Comment: Trig lyceride Reference Interval: Less than 150 Normal 150-199 Borderline high risk 200-499 High risk 500 or higher Very high risk Performed By: #### L IPID, ANEU, GFR, CBC, ADIFF, CMP #### [address] [address] AMOXICILLIN+CLAVULANATE:SUSC :PT:ISOLATE:ORDQN:MICon 05-13-2023 Amoxicillin+Clavulanat e JAJA [Susc] >100,000 cfu/ml Escherichia coli [facility] Work Phone: Amoxicillin+Clavulanate JAJA [Susc]on 05-13-2023 Escherichia coli Escherichia coli [facility] Work Phone: Final Surgical Pathology Rep [facility] 03-25-2023 Final Surgical Pathology Report . Pathology Reports Accession: Collected Date/Time: Received Date/Time: Pathologist: [id number] 03/24/2023 09:38 EST 03/24/2023 11:29 ALEJANDRA BIRCH MD Final Surgical Pathology Report DIAGNOSIS: A. CECAL BIOPSY: - FRAGMENTS OF UNREMARKABLE COLON MUCOSA B. ASCENDING BIOPSY: - FRAGMENTS OF UNREMARKABLE COLON MUCOSA C. TRANSVERSE COLON BIOPSY: - FRAGMENTS OF UNREMARKABLE COLON MUCOSA D. DESCENDING COLON BIOPSY: - FRAGMENTS OF UNREMARKABLE COLON MUCOSA E. SIGMOID BIOPSY: - FRAGMENTS OF UNREMARKABLE COLON MUCOSA F. RECTAL BIOPSY: - FRAGMENTS OF UNREMARKABLE RECTAL MUCOSA Comment: Biopsies A through F: Negative for dysplasia CLINICAL INFORMATION: PROCEDURE: COLONOSCOPY PREOPERATIVE DIAGNOSIS: HISTORY OF ULCERATIVE COLITIS _ POSTOPERATIVE DIAGNOSIS: SAME SPECIMEN: A COLON, BIOPSY CECAL B COLON, BIOPSY ASCENDING C COLON, BIOPSY TRANSVERSE D COLON, BIOPSY DESCENDING E COLON, BIOPSY SIGMOID F COLON, BIOPSY RECTAL GROSS DESCRIPTION: All parts labelled with patient name and [id number] A. Received in formalin labelled cecal biopsy Are 4 vásquez tissue fragments measuring 0.2 to 0.4 x 0.2 cm TS-1 B. Received in formalin labelled ascending biopsy Are 4 vásquez-pink tissue fragments measuring 0.2 to 0.5 x 0.1 cm TS-1 C. Received in formalin labelled transverse biopsy Are 3 vásquez-pink tissue fragments measuring 0.2 to 0.4 x 0.2 cm TS-1 D. Received in formalin labelled descending colon biopsy Are 4 vásquez-pink tissue fragments measuring less than 0.1 to 0.5 x 0.2 cm. The smallest fragment may not survive processing. TS-1 E. Received in formalin labelled sigmoid biopsy Are 3 vásquez-pink tissue fragments each measuring 0.2 cm. TS-1 F. Received in formalin labelled rectal biopsy Are 2 vásquez-pink tissue fragments measuring 0.3 x 0.2 and 0.6 x 0.2 cm greatest dimension. TS-1 Pathology Reports Accession: Collected Date/Time: Received Date/Time: Pathologist: [id number] 03/24/2023 09:38 EST 03/24/2023 11:29 ALEJANDRA BIRCH MD GROSS DESCRIPTION: Charley Tsai, Grossing [employer]/ Dr. Quinn Martinez, Pathologist Dictated by Charley Tsai MICROSCOPIC DESCRIPTION: The microscopic examination is performed, except in the case of Gross Only. Electronically Signed by Pathology Report verified by [facility] ALEJANDRA SOSA Sign out Date: 03/25/2023 11:23 Performing Lab: [facility], [address] [place] [address] Pathology Dept Disclaimer If ancillary studies were utilized, the following Laboratory Developed Test (LDT) disclaimer will apply: Under CLIA requirements, [facility] is qualified to perform high complexity testing. For all ancillary stains, positive and negative controls stain appropriately. Performance characteristics of immunohistochemical and chromogenic in-situ hybridization tests have been determined by [facility]. These tests are used for clinical purposes, They should not be regarded as investigational or for research. Normal [facility] ([place]) .Auto Diffon 03-19-2023 Basophil, Absolute 0.0 10 3/mcL Normal 0.0-0.3 [facility] ([place]) Comment on above: Performed By: #### L IPID, ANEU, GFR, CBC, ADIFF, CMP #### [address] [address] Basophils/100 WBC (Bld) 0.6 % Normal 0.0-2.5 [facility] ([place]) Comment on above: Performed By: #### L IPID, ANEU, GFR, CBC, ADIFF, CMP #### [address] [address] Eosinophil, Absolute 0.1 10 3/mcL Normal 0.0-0.7 [facility] ([place]) Comment on above: Performed By: #### L IPID, ANEU, GFR, CBC, ADIFF, CMP #### [address] [address] Eosinophils/100 WBC (Bld) 2.7 % Normal 0.0-6.0 [facility] ([place]) Comment on above: Performed By: #### L IPID, ANEU, GFR, CBC, ADIFF, CMP #### [address] [address] Lymphocyte, Absolute 1.3 10 3/mcL Normal 0.9-4.3 [facility] ([place]) Comment on above: Performed By: #### L IPID, ANEU, GFR, CBC, ADIFF, CMP #### [address] [address] Lymphocytes/100 WBC (Bld) 23.6 % Normal 20.0-40.0 [facility] ([place]) Comment on above: Performed By: #### L IPID, ANEU, GFR, CBC, ADIFF, CMP #### [address] [address] Monocyte, Absolute 0.4 10 3/mcL Normal 0.1-1.4 [facility] ([place]) Comment on above: Performed By: #### L IPID, ANEU, GFR, CBC, ADIFF, CMP #### [address] [address] Monocytes/100 WBC (Bld) 7.2 % Normal 2.0-13.0 [facility] ([place]) Comment on above: Performed By: #### L IPID, ANEU, GFR, CBC, ADIFF, CMP #### [address] [address] Neutrophils/100 WBC (Bld) 65.9 % Normal 50.0-75.0 [facility] ([place]) Comment on above: Performed By: #### L IPID, ANEU, GFR, CBC, ADIFF, CMP #### [address] [address] .GFRon 03-19-2023 GFR >60 Normal [facility] ([place]) Comment on above: Result Comment: GFR Population mean for , Non- Americans Ages 20-29 = 116 mL/min/1.73 sq.m. Ages 30-39 = 107 mL/min/1.73 sq.m. Ages 40-49 = 99 mL/min/1.73 sq.m. Ages 50-59 = 93 mL/min/1.73 sq.m. Ages 60-69 = 85 mL/min/1.73 sq.m. Ages 70+ = 75 mL/min/1.73 sq.m. Chronic Kidney Disease: Less than 60 mL/min/1.73 square meters End Stage Renal Disease: Less than 15 mL/min/1.73 square meters Performed By: #### L IPID, ANEU, GFR, CBC, ADIFF, CMP #### [address] [address] GFR Non- >60 Normal [facility] ([place]) Comment on above: Result Comment: GFR Population mean for , Non- Americans Ages 20-29 = 116 mL/min/1.73 sq.m. Ages 30-39 = 107 mL/min/1.73 sq.m. Ages 40-49 = 99 mL/min/1.73 sq.m. Ages 50-59 = 93 mL/min/1.73 sq.m. Ages 60-69 = 85 mL/min/1.73 sq.m. Ages 70+ = 75 mL/min/1.73 sq.m. Chronic Kidney Disease: Less than 60 mL/min/1.73 square meters End Stage Renal Disease: Less than 15 mL/min/1.73 square meters Performed By: #### L IPID, ANEU, GFR, CBC, ADIFF, CMP #### [address] [address] .NEUABSon 03-19-2023 Neutrophil, Absolute 3.5 10 3/mcL Normal 2.3-8.1 [facility] ([place]) Comment on above: Performed By: #### L IPID, ANEU, GFR, CBC, ADIFF, CMP #### [address] [address] BMPon 03-19-2023 BUN/Creatinine Ratio 26.4 ratio High 10.0-22.0 [facility] ([place]) Comment on above: Performed By: #### L IPID, ANEU, GFR, CBC, ADIFF, CMP #### [address] [address] Calcium [Mass/Vol] 9.3 mg/dL Normal 8.7-10.4 [facility] ([place]) Comment on above: Performed By: #### L IPID, ANEU, GFR, CBC, ADIFF, CMP #### [address] [address] Chloride [Moles/Vol] 110 mmol/L Normal 98-110 [facility] ([place]) Comment on above: Performed By: #### L IPID, ANEU, GFR, CBC, ADIFF, CMP #### [address] [address] CO2 [Moles/Vol] 25 mmol/L Normal 22-32 [facility] ([place]) Comment on above: Performed By: #### L IPID, ANEU, GFR, CBC, ADIFF, CMP #### [address] [address] Creatinine [Mass/Vol] 0.53 mg/dL Normal 0.50-1.20 [facility] ([place]) Comment on above: Performed By: #### L IPID, ANEU, GFR, CBC, ADIFF, CMP #### [address] [address] Electrolyte Balance 7.0 mEq/L Normal 4.0-15.0 [facility] ([place]) Comment on above: Performed By: #### L IPID, ANEU, GFR, CBC, ADIFF, CMP #### [address] [address] Glucose [Mass/Vol] 84 mg/dL Normal 82-115 [facility] ([place]) Comment on above: Performed By: #### L IPID, ANEU, GFR, CBC, ADIFF, CMP #### [address] [address] Potassium [Moles/Vol] 4.3 mmol/L Normal 3.5-5.0 [facility] ([place]) Comment on above: Performed By: #### L IPID, ANEU, GFR, CBC, ADIFF, CMP #### [address] [address] Sodium [Moles/Vol] 142 mmol/L Normal 136-145 [facility] ([place]) Comment on above: Performed By: #### L IPID, ANEU, GFR, CBC, ADIFF, CMP #### [address] [address] Urea nitrogen [Mass/Vol] 14.0 mg/dL Normal 8.0-22.0 [facility] ([place]) Comment on above: Performed By: #### L IPID, ANEU, GFR, CBC, ADIFF, CMP #### [address] [address] CBCon 03-19-2023 Erythrocyte distribution width (RBC) [Ratio] 13.7 % Normal 11.5-15.5 [facility] ([place]) Comment on above: Performed By: #### L IPID, ANEU, GFR, CBC, ADIFF, CMP #### [place] [address] Hematocrit (Bld) [Volume fraction] 39.9 % Normal 34.0-46.0 [facility] ([place]) Comment on above: Performed By: #### L IPID, ANEU, GFR, CBC, ADIFF, CMP #### [place] [address] Hgb 13.2 G/dL Normal 12.0-16.0 [facility] ([place]) Comment on above: Performed By: #### L IPID, ANEU, GFR, CBC, ADIFF, CMP #### [address] [address] MCH (RBC) [Entitic mass] 29.2 pg Normal 27.0-33.0 [facility] ([place]) Comment on above: Performed By: #### L IPID, ANEU, GFR, CBC, ADIFF, CMP #### [address] [address] MCHC 33.1 G/dL Normal 32.0-36.0 [facility] ([place]) Comment on above: Performed By: #### L IPID, ANEU, GFR, CBC, ADIFF, CMP #### [address] [address] MCV (RBC) [Entitic vol] 88.1 fL Normal 80.0-99.0 [facility] ([place]) Comment on above: Performed By: #### L IPID, ANEU, GFR, CBC, ADIFF, CMP #### [address] [address] Platelet 346 10 3/mcL Normal 150-450 [facility] ([place]) Comment on above: Performed By: #### L IPID, ANEU, GFR, CBC, ADIFF, CMP #### [address] [address] Platelet mean volume (Bld) [Entitic vol] 7.3 fL Normal 6.6-10.5 [facility] ([place]) Comment on above: Performed By: #### L IPID, ANEU, GFR, CBC, ADIFF, CMP #### [address] [address] RBC 4.53 10 6/mcL Normal 4.10-5.30 [facility] ([place]) Comment on above: Performed By: #### L IPID, ANEU, GFR, CBC, ADIFF, CMP #### [place] [address] WBC 5.3 10 3/mcL Normal 4.5-10.8 [facility]) Comment on above: Performed By: #### L IPID, ANEU, GFR, CBC, ADIFF, CMP #### [address] [address] LABORATORYOrdered By: SYSTEM SYSTEM on 03-19-2023 Basophils (Bld) [#/Vol] 0.0 103/mcL Normal 0.0 - 0.3 10^3/mcL Workflow SS Basophils/100 WBC (Bld) 0.6 % Normal 0.0 - 2.5 % Workflow SS Calcium [Mass/Vol] 9.3 mg/dL Normal 8.7 - 10. 4 mg/dL ADM SS Chloride [Moles/Vol] 110 mmol/L Normal 98 - 11 0 mEq/L ADM SS CO2 [Moles/Vol] 25 mmol/L Normal 22 - 32 mEq/L ADM SS Creatinine [Mass/Vol] 0.53 mg/dL Normal 0.50 - 1.20 mg/dL ADM SS Electrolyte Balance 7.0 mEq/L Normal 4.0 - 15 .0 mEq/L ADM SS Eosinophils (Bld) [#/Vol] 0.1 103/mcL Normal 0.0 - 0.7 10^3/mcL AH Workflow SS Eosinophils/100 WBC (Bld) 2.7 % Normal 0.0 - 6.0 % Workflow SS Erythrocyte distribution width (RBC) [Ratio] 13.7 % Normal 11.5 - 15.5 % Workflow SS GFR/1.73 sq M.predicted among blacks MDRD (S/P/Bld) [Vol rate/Area] ml/min/1.73sqm Invalid Interpretation Code Chemistry S Comment on above: Interpretive Data: GFR Population mean for , Non- Americans Ages 20-29 = 116 mL/min/1.73 sq.m. Ages 30-39 = 107 mL/min/1.73 sq.m. Ages 40-49 = 99 mL/min/1.73 sq.m. Ages 50-59 = 93 mL/min/1.73 sq.m. Ages 60-69 = 85 mL/min/1.73 sq.m. Ages 70+ = 75 mL/min/1.73 sq.m. Chronic Kidney Disease: Less than 60 mL/min/1.73 square meters End Stage Renal Disease: Less than 15 mL/min/1.73 square meters GFR/1.73 sq M.predicted among non-blacks MDRD (S/P/Bld) [Vol rate/Area] ml/min/1.73sqm Invalid Interpretation Code Chemistry S Comment on above: Interpretive Data: GFR Population mean for , Non- Americans Ages 20-29 = 116 mL/min/1.73 sq.m. Ages 30-39 = 107 mL/min/1.73 sq.m. Ages 40-49 = 99 mL/min/1.73 sq.m. Ages 50-59 = 93 mL/min/1.73 sq.m. Ages 60-69 = 85 mL/min/1.73 sq.m. Ages 70+ = 75 mL/min/1.73 sq.m. Chronic Kidney Disease: Less than 60 mL/min/1.73 square meters End Stage Renal Disease: Less than 15 mL/min/1.73 square meters Glucose [Mass/Vol] 84 mg/dL Normal 82 - 115 mg/dL ADM SS Hematocrit (Bld) [Volume fraction] 39.9 % Normal 34.0 - 46.0 % Workflow SS Hemoglobin (Bld) [Mass/Vol] 13.2 G/dL Normal 12.0 - 16.0 G/dL AH Workflow SS Lymphocytes (Bld) [#/Vol] 1.3 103/mcL Normal 0.9 - 4.3 10^3/mcL AH Workflow SS Lymphocytes/100 WBC (Bld) 23.6 % Normal 20.0 - 40.0 % AH Workflow SS MCH (RBC) [Entitic mass] 29.2 pg Normal 27.0 - 33.0 pg AH Workflow SS MCHC 33.1 G/dL Normal 32.0 - 36.0 G/dL AH Workflow SS MCV (RBC) [Entitic vol] 88.1 fL Normal 80.0 - 99.0 fL AH Workflow SS Monocytes (Bld) [#/Vol] 0.4 103/mcL Normal 0.1 - 1.4 10^3/mcL AH Workflow SS Monocytes/100 WBC (Bld) 7.2 % Normal 2.0 - 13.0 % AH Workflow SS Neutrophils (Bld) [#/Vol] 3.5 103/mcL Normal 2.3 - 8.1 10^3/mcL AH Workflow SS Neutrophils/100 WBC (Bld) 65.9 % Normal 50.0 - 75.0 % AH Workflow SS Platelet mean volume (Bld) [Entitic vol] 7.3 fL Normal 6.6 - 10.5 fL AH Workflow SS Platelets (Bld) [#/Vol] 346 103/mcL Normal 150 - 450 10^3/mcL AH Workflow SS Potassium [Moles/Vol] 4.3 mmol/L Normal 3.5 - 5.0 mEq/L AH ADM SS RBC (Bld) [#/Vol] 4.53 106/mcL Normal 4.10 - 5.30 10^6/mcL AH Workflow SS Sodium [Moles/Vol] 142 mmol/L Normal 136 - 145 mEq/L ADM SS Urea nitrogen [Mass/Vol] 14.0 mg/dL Normal 8.0 - 22.0 mg/dL AH ADM SS Urea nitrogen/Creatinine [Mass ratio] 26.4 ratio High 10.0 - 22.0 ratio AH ADM SS WBC (Bld) [#/Vol] 5.3 103/mcL Normal 4.5 - 10.8 10^3/mcL AH Workflow SS MA MAMMOGRAM DIAGNOSTIC BILA TERAL W/TOMOon 01-16-2023 MA MAMMOGRAM DIAGNOSTIC BILATERAL W/CHRIS ORIGINAL FROM: [address] [address] PROCEDURE FOR: BLANK [place] [address] Home: PID#: [id number] Exam#: [id number] : 1955 Age: 67 TO: MELODIE FORTUNE PRAKASH [employer] INSPECTOR [address], [place] [address] Fax: NO FAX EXAMINATION: DIAGNOSTIC BILATERAL MAMMOGRAM WITH TOMOSYNTHESIS, 01/16/2023 9:59 am TECHNIQUE: Tomosynthesis was performed as part of the diagnostic bilateral mammogram. 2D standard and 3D tomosynthesis combination imaging performed. Current study was also evaluated with a Computer Aided Detection (CAD) system. COMPARISON: 07/10/2022 06/20/2022, 12/16/2021, 06/12/2021, 12/05/2020, 08/17/2020 HISTORY: ORDERING SYSTEM PROVIDED HISTORY: Reason for Exam: Follow-up bilateral calcifications Right breast calcifications 11 o'clock and left breast calcifications 1 o'clock FINDINGS: BREAST DENSITY: Heterogeneously dense There is a 3.9 cm region of punctate calcifications in the left breast at 1 o'clock middle depth. This is not significantly changed by my measurements. These are confirmed on additional views. The coarse calcifications described in the right breast at 11 o'clock anterior depth on the previous exam have been biopsied with a biopsy marking clip. These calcifications are consistent with fat necrosis and are benign. No other significant masses, calcifications, or other findings. IMPRESSION: The 3.9 cm region of punctate calcifications in the left breast at 1 o'clock are probably benign. A six-month follow-up diagnostic left mammogram is recommended to demonstrate stability. A right breast ultrasound was performed today for the complicated cyst seen on the previous exam and will be reported separately. Carol Ann Lee risk calculations, generated with the history provided, report this patient's 10 year risk and lifetime risk for developing breast cancer at 5.0% and 8.9%, respectively. Based on this assessment tool, if the patient's calculated lifetime risk is below 20%, then the patient is considered at average risk for developing breast cancer. If the patient's calculated lifetime risk is at or above 20%, then the patient is considered high risk for developing breast cancer and may be a candidate for supplemental breast MRI screening in addition to annual mammographic screening per the [employer]. BIRADS: MAMMOGRAM BI-RADS: 3: Probably benign RECALL: 6 month follow-up RECALL TYPE: Left mammo LETTER SENT: Probably Benign BI-RADS 3 Interpreted by: Dinesh Prajapati MD Preliminary Report By: Dinesh Prajapati MD Electronically signed By Dinesh Prajapati MD Dictated Date: 01/16/2023 10:25:08 AM Prelim Date: 01/16/2023 11:32:17 AM Sign Date: 01/16/2023 11:32:17 AM Ordering Provider: MELODIE FORTUNE CLINICAL: BILATERAL CALCIFICATIONS- 6 MONTHS FOLLOW-UP. MAMMOGRAPHIC DENSITY RIGHT BREAST- 6 MONTHS FOLLOW-UP. Road Machinery Inspector: BARRETT GIPSON RT(R)(M) letter sent: Probably Benign BI-RADS 3 Mammogram BI-RADS: 3 Probably benign Normal [facility] ([place]) US BREAST RIGHT LIMITEDon US BREAST RIGHT LIMITED ORIGINAL FROM: [address] [address] PROCEDURE FOR: BLANK OGNZALEZ [address] [place] [address] [place] [address] Home: PID#: [id number] Exam#: [id number] : 1955 Age: 67 TO: MELODIE FORTUNE APRN [place] [address] Fax: NO FAX EXAMINATION: ULTRASOUND OF THE RIGHT BREAST 01/16/2023 10:01 am TECHNIQUE: Color flow and real-time targeted ultrasound of the right breast upper outer quadrant were performed. COMPARISON: 01/16/2023, 06/20/2022, 12/16/2021, 06/12/2021, 12/05/2020 HISTORY: ORDERING SYSTEM PROVIDED HISTORY: Reason for Exam: f/u right breast mass x2 Right breast mass 10 o'clock FINDINGS: The 8 mm cluster of cysts in the right breast at 10 o'clock middle depth 4 cm from the nipple described on the previous exam has demonstrated 2 years of stability and is considered benign. There are internal echoes. Slight differences in measurements are felt to be due to inter observer variation and are not significant. IMPRESSION: The 8 mm cluster of cysts in the right breast at 10 o'clock appears benign. This and does not require any imaging follow-up. Please note that a diagnostic left mammogram is recommended to demonstrate stability of the calcifications in the left breast not evaluated on this exam. BIRADS: MAMMOGRAM BI-RADS: 3: Probably benign RECALL: 6 month follow-up RECALL TYPE: Left mammo LETTER SENT: Probably Benign BI-RADS 3 Interpreted by: Dinesh Prajapati MD Preliminary Report By: Dinesh Prajapati MD Electronically signed By Dinesh Prajapati MD Dictated Date: 01/16/2023 11:42:34 AM Prelim Date: 01/16/2023 11:46:10 AM Sign Date: 01/16/2023 11:46:10 AM Ordering Provider: MELODIE FORTUNE CLINICAL: MAMMOGRAPHIC DENSITY RIGHT BREAST/ 6 MONTHS FOLLOW-UP [address] Machinery Inspector: AVNI GEORGE RT(R)(M), RDMS letter sent: Probably Benign BI-RADS 3 Ultrasound BI-RADS: 3 Probably benign Normal [facility] ([place]) BD BONE DENSITY DEXA AXIAL S [facility] 08-22-2022 BD BONE DENSITY DEXA AXIAL [place]LETON ORIGINAL EXAMINATION: BONE DENSITOMETRY08/22/2022 10:51 am TECHNIQUE: Dual energy bone densitometry lumbar spine and left hip. COMPARISON: DEXA 08/17/2020 HISTORY: ORDERING SYSTEM PROVIDED HISTORY: Reason for Exam: Osteoporosis Screening Osteoporosis screening. FINDINGS: T Score Left Femoral Neck:-1.3. BMD left Femoral Neck: 0.709 (g/cm2) T Score Left Hip:-1.0. BMD left Hip: 0.819 (g/cm2) T Score Lumbar Spine:-2.1. BMD lumbar Spine: 0.819 (g/cmd2) BMD Change from previous Hip: -3.7% BMD Change from previous Lumbar Spine: 6.4% FRAX score: 10 year risk major osteoporotic fracture 15 %. 10 year risk hip fracture 1.6 %. IMPRESSION: Osteopenia. I have personally reviewed the images of this examination and agree with the resident's findings and interpretation. Interpreted by: Dinesh Johns DO Preliminary Report By: Angelika Seaman Electronically signed By Dinesh Johns DO Dictated Date: 08/22/2022 11:02:03 AM Prelim Date: 08/22/2022 11:12:02 AM Sign Date: 08/22/2022 11:12:02 AM Ordering Provider: GRIS Aguayo [facility] ([place]) AMPICILLIN+SULBACTAM:SUSC:PT :ISOLATE:ORDQN:MICon 06-11-2022 Ampicillin+Sulbactam JAJA [Susc] >100,000 cfu/ml Escherichia coli [facility] Work Phone: Ampicillin+Sulbactam JAJA [[place]]on 06-11-2022 Escherichia coli Escherichia coli [facility] Work Phone: AMPICILLIN+SULBACTAM:SUSC:PT :ISOLATE:ORDQN:MICon 04-10-2022 Ampicillin+Sulbactam JAJA [Susc] 50,000 - 100,000 cfu/ml Escherichia coli [facility] Work Phone: Ampicillin+Sulbactam JAJA [[place]]on 04-10-2022 Escherichia coli Escherichia coli [facility] Work Phone: LABORATORYOrdered By: SYSTEM SYSTEM on 03-11-2022 Albumin BCP dye [Mass/Vol] 3.8 G/dL Invalid Interpretation Code 3.4 - 4.8 G/dL AO ADM SS Albumin/Globulin [Mass ratio] 1.2 {ratio} Invalid Interpretation Code 1.1 - 2.5 ratio AO ADM SS ALP [Catalytic activity/Vol] 84 U/L Invalid Interpretation Code 40 - 135 U/L AO ADM SS ALT With P-5'-P [Catalytic activity/Vol] 21 U/L Invalid Interpretation Code 14 - 59 U/L AO ADM SS AST With P-5'-P [Catalytic activity/Vol] 20 U/L Invalid Interpretation Code 10 - 40 U/L AO ADM SS Bilirubin [Mass/Vol] 0.4 mg/dL Invalid Interpretation Code 0.2 - 1.0 mg/dL AO ADM SS Calcium [Mass/Vol] 9.0 mg/dL Invalid Interpretation Code 8.4 - 10.2 mg/dL AO ADM SS Chloride [Moles/Vol] 104 mmol/L Invalid Interpretation Code 98 - 107 mmol/L AO ADM SS CO2 [Moles/Vol] 30 mmol/L Invalid Interpretation Code 23 - 31 mmol/L AO ADM SS Creatinine [Mass/Vol] 0.62 mg/dL Invalid Interpretation Code 0.55 - 1.02 mg/dL AO ADM SS Electrolyte Balance 8.0 mEq/L Invalid Interpretation Code 4.0 - 15.0 mEq/L AO ADM SS Ferritin [Mass/Vol] 87.0 ng/mL Invalid Interpretation Code 8.0 - 252.0 ng/mL AO ADM SS GFR 116 ml/min/1.73sqm Invalid Interpretation Code AO Chemistry S GFR Non- 96 ml/min/1.73sqm Invalid Interpretation Code AO Chemistry S Globulin 3.2 G/dL Invalid Interpretation Code AO ADM SS Glucose [Mass/Vol] 96 mg/dL Invalid Interpretation Code 80 - 115 mg/dL AO ADM SS Iron [Mass/Vol] 105 ug/dL Invalid Interpretation Code 50 - 170 mcg/dL AO ADM SS Iron binding capacity [Mass/Vol] 320 mcg/dL Invalid Interpretation Code 250 - 450 mcg/dL AO ADM SS Iron Sat 33 1 Invalid Interpretation Code AO ADM SS Potassium [Moles/Vol] 4.1 mmol/L Invalid Interpretation Code 3.5 - 5.1 mmol/L AO ADM SS Protein [Mass/Vol] 7.0 G/dL Invalid Interpretation Code 6.4 - 8.2 G/dL AO ADM SS Sodium [Moles/Vol] 142 mmol/L Invalid Interpretation Code 136 - 145 mmol/L AO ADM SS Urea nitrogen [Mass/Vol] 12 mg/dL Invalid Interpretation Code 7 - 18 mg/dL AO ADM SS Urea nitrogen/Creatinine [Mass ratio] 19 ratio Invalid Interpretation Code 7 - 27 ratio AO ADM SS Vit. D 25-Hydroxy 36.7 ng/mL Invalid Interpretation Code AO ADM SS LABORATORYOrdered By: Sarahy Valentin on 03-11-2022 Basophil, Absolute 0.0 103/mcL Invalid Interpretation Code 0.0 - 0.2 10^3/mcL AO Workflow SS Basophils/100 WBC (Bld) 0.3 % Invalid Interpretation Code 0.0 - 2.5 % AO Workflow SS Eosinophil, Absolute 0.1 103/mcL Invalid Interpretation Code 0.0 - 0.4 10^3/mcL AO Workflow SS Eosinophils/100 WBC (Bld) 2.1 % Invalid Interpretation Code 0.0 - 7.0 % AO Workflow SS Erythrocyte distribution width (RBC) [Ratio] 13.5 % Invalid Interpretation Code 11.5 - 14.5 % AO Workflow SS ESR 15 minute reading (Bld) [Velocity] 24 mm/hr Invalid Interpretation Code 0 - 30 mm/hr AO Man Heme SS Hematocrit (Bld) [Volume fraction] 40.4 % Invalid Interpretation Code 37.0 - 47.0 % AO Workflow SS Hemoglobin (Bld) [Mass/Vol] 13.5 G/dL Invalid Interpretation Code 12.0 - 16.0 G/dL AO Workflow SS Lymphocyte, Absolute 1.6 103/mcL Invalid Interpretation Code 0.8 - 3.9 10^3/mcL AO Workflow SS Lymphocytes/100 WBC (Bld) 23.7 % Invalid Interpretation Code 10.0 - 50.0 % AO Workflow SS MCH (RBC) [Entitic mass] 29.1 pg Invalid Interpretation Code 27.0 - 31.2 pg AO Workflow SS MCHC 33.4 G/dL Invalid Interpretation Code 33.0 - 37.0 G/dL AO Workflow SS MCV (RBC) [Entitic vol] 87.1 fL Invalid Interpretation Code 80.0 - 94.0 fL AO Workflow SS Monocyte, Absolute 0.4 103/mcL Invalid Interpretation Code 0.2 - 1.0 10^3/mcL AO Workflow SS Monocytes/100 WBC (Bld) 6.7 % Invalid Interpretation Code 1.7 - 13.0 % AO Workflow SS Neutrophil, Absolute 4.4 103/mcL Invalid Interpretation Code 2.9 - 6.2 10^3/mcL AO Workflow SS Neutrophils/100 WBC (Bld) 67.2 % Invalid Interpretation Code 37.0 - 80.0 % AO Workflow SS Platelet mean volume (Bld) [Entitic vol] 7.5 fL Invalid Interpretation Code 7.4 - 10.4 fL AO Workflow SS Platelets (Bld) [#/Vol] 378 103/mcL Invalid Interpretation Code 130 - 400 10^3/mcL AO Workflow SS RBC (Bld) [#/Vol] 4.64 106/mcL Invalid Interpretation Code 4.20 - 5.40 10^6/mcL AO Workflow SS WBC (Bld) [#/Vol] 6.6 103/mcL Invalid Interpretation Code 4.6 - 10.8 10^3/mcL AO Workflow SS CEFUROXIME:SUSC:PT:ISOLATE:O RDQN:MICon 11-11-2021 Cefuroxime JAJA [Susc] 50,000 - 100,000 c fu/ml Escherichia coli [facility] Work Phone: Cefuroxime JAJA [Susc]on Escherichia coli Escherichia coli [facility] Work Phone: No Panel Informationon 08-21 Culture Urine >100,000 cfu/ml Mixe d growth consistent with normal urogenital davida. [facility] Work Phone: No Panel Informationon 12-31 Culture Urine No growth at 48 hours. [facility] Work Phone: Vital Signs Date Time Vital Sign Value Performing Clinician Facility 11-30-2024 13:54-0400 Body height 152.4 cm Gris Parkinson HYDRAULIC DESIGN ENGINEER-C Work Phone: [facility] 11-30-2024 13:54-0400 Body mass index (BMI) [Ratio] 26.4 kg/m2 Gris Parkinson HYDRAULIC DESIGN ENGINEER-C Work Phone: [facility] 11-30-2024 13:54-0400 Body weight 61.23 kg Gris Parkinson HYDRAULIC DESIGN ENGINEER-C Work Phone: [facility] 11-30-2024 13:54-0400 Diastolic blood pressure 84 mm[Hg] Gris Parkinson HYDRAULIC DESIGN ENGINEER-C Work Phone: [facility] 11-30-2024 13:54-0400 Heart rate 73 /min Gris Parkinson HYDRAULIC DESIGN ENGINEER-C Work Phone: [facility] 11-30-2024 13:54-0400 Systolic blood pressure 127 mm[Hg] Gris Parkinson HYDRAULIC DESIGN ENGINEER-C Work Phone: [facility] 06-14-2024 08:18-0400 Diastolic Blood Pressure Non-Invasive 72 mm[Hg] DR MAKI HURLEY MD [facility] 06-14-2024 08:18-0400 Heart rate 69 /min DR MAKI HURLEY MD [facility] 06-14-2024 08:18-0400 Respiratory rate 16 /min DR MAKI HURLEY MD [facility] 06-14-2024 08:18-0400 Systolic Blood Pressure Non-Invasive 110 mm[Hg] DR MAKI HURLEY MD [facility] 06-14-2024 08:15-0400 Diastolic Blood Pressure Non-Invasive 67 mm[Hg] DR MAKI HURLEY MD [facility] 06-14-2024 08:15-0400 Heart rate 70 /min DR MAKI HURLEY MD [facility] 06-14-2024 08:15-0400 Respiratory rate 16 /min DR MAKI HURLEY MD [facility] 06-14-2024 08:15-0400 Systolic Blood Pressure Non-Invasive 112 mm[Hg] DR MAKI HURLEY MD [facility] 06-14-2024 08:00-0400 Diastolic Blood Pressure Non-Invasive 60 mm[Hg] DR MAKI HURLEY MD [facility] 06-14-2024 08:00-0400 Heart rate 73 /min DR MAKI HURLEY MD [facility] 06-14-2024 08:00-0400 Systolic Blood Pressure Non-Invasive 104 mm[Hg] DR MAKI HURLEY MD [facility] 06-14-2024 06:48-0400 Body height 152.[address] MAKI HURLEY MD [facility] 06-14-2024 06:48-0400 Body weight 60.[address] MAKI HURLEY MD [facility] 06-14-2024 06:41-0400 Body height 155.[address] MAKI HURLEY MD [facility] 03-24-2023 10:30-0500 Body temperature 96.98 [degF] DR MAKI HURLEY MD [facility] 03-24-2023 10:30-0500 Diastolic Blood Pressure Non-Invasive 78 mm[Hg] DR MAKI HURLEY MD [facility] 03-24-2023 10:30-0500 Heart rate 68 /min DR MAKI HURLEY MD [facility] 03-24-2023 10:30-0500 Respiratory rate 16 /min DR MAKI HURLEY MD [facility] 03-24-2023 10:30-0500 Systolic Blood Pressure Non-Invasive 112 mm[Hg] DR MAKI HURLEY MD [facility] 03-24-2023 10:00-0500 Diastolic Blood Pressure Non-Invasive 74 mm[Hg] DR MAKI HURLEY MD [facility] 03-24-2023 10:00-0500 Heart rate 65 /min DR MAKI HURLEY MD [facility] 03-24-2023 10:00-0500 Mean blood pressure 89 mm[Hg] DR MAKI HURLEY MD [facility] 03-24-2023 10:00-0500 Systolic Blood Pressure Non-Invasive 122 mm[Hg] DR MAKI HURLEY MD [facility] 03-24-2023 09:45-0500 Body temperature 97.16 [degF] DR MAKI HURLEY MD [facility] 03-24-2023 09:45-0500 Diastolic Blood Pressure Non-Invasive 79 mm[Hg] DR MAKI HURLEY MD [facility] 03-24-2023 09:45-0500 Heart rate 70 /min DR MAKI HURLEY MD [facility] 03-24-2023 09:45-0500 Mean blood pressure 93 mm[Hg] DR MAKI HURLEY MD [facility] 03-24-2023 09:45-0500 Respiratory rate 24 /min DR MAKI HURLEY MD [facility] 03-24-2023 09:45-0500 Systolic Blood Pressure Non-Invasive 144 mm[Hg] DR MAKI HURLEY MD [facility] 03-24-2023 09:40-0500 Heart rate 73 /min DR MAKI HURLEY MD [facility] 03-24-2023 09:40-0500 Respiratory Rate - Anes 15 br/min DR MAKI HURLEY MD [facility] 03-24-2023 09:35-0500 Respiratory Rate - Anes 14 br/min DR MAKI HURLEY MD [facility] 03-24-2023 09:30-0500 Respiratory Rate - Anes 12 br/min DR MAKI HURLEY MD [facility] 03-24-2023 08:11-0500 Body height 152.[address] MAKI HURLEY MD [facility] 03-24-2023 08:11-0500 Body weight 60.[address] MAKI HURLEY MD [facility] 03-24-2023 07:42-0500 Body temperature 96.98 [degF] DR MAKI HURLEY MD [facility] 03-24-2023 07:42-0500 Heart rate 75 /min DR MAKI HURLEY MD [facility] 03-19-2023 09:16-0500 Blood Pressure Cuff Size DR MAKI HURLEY MD [facility] 03-19-2023 09:16-[address] MAKI HURLEY MD [facility] 03-19-2023 09:16-[address] MAKI Mratinez [facility] 03-19-2023 09:16-0500 Body height [address] MAKI HURLEY MD [facility] 03-19-2023 09:16-0500 Body temperature 98.06 [degF] DR MAKI HURLEY MD [facility] 03-19-2023 09:16-0500 Body weight [address] MAKI HURLEY MD [facility] 03-19-2023 09:16-0500 Body weight 26.99 kg/m2 DR MAKI HURLEY MD [facility] 03-19-2023 09:16-0500 Diastolic Blood Pressure Non-Invasive 86 mm[Hg] DR MAKI HURLEY MD [facility] 03-19-2023 09:16-0500 Heart rate 78 /min DR MAKI HURLEY MD [facility] 03-19-2023 09:16-0500 Systolic Blood Pressure Non-Invasive 143 mm[Hg] DR MAKI HURLEY MD [facility] Encounters Encounter Date Encounter Type Care Provider Facility Start: 11-30-2024 End: 11-30-[address] Sondra Mary MD -[facility] Work Phone: Start: 11-30-2024 End: 11-30-2024 ambulatory Gris Parkinson NP Facility:[facility] Start: 11-21-2024 End: 11-21-2024 Patient encounter procedure Alin Mehta DO -Laboratory Work Phone: Start: 11-21-2024 End: 11-21-2024 ambulatory Alin Mehta Facility:[facility] Start: 11-18-2024 End: 11-18-2024 Patient encounter procedure Alin Mehta DO -[facility] Work Phone: Start: 11-18-2024 End: 11-18-2024 ambulatory Gris Parkinson HYDRAULIC DESIGN ENGINEER-C Work Phone: [facility] Start: 10-13-2024 ambulatory GRIS PEPPER LUIS FERNANDO LICENSED VETERINARY TECHNICIAN-[employer] INSPECTOR Facility:A Start: 10-05-2024 End: 10-05-2024 ambulatory GRIS Waite IGGY LICENSED VETERINARY TECHNICIAN-[employer] INSPECTOR Facility:[facility] Start: 10-05-2024 End: 10-05-2024 Patient encounter procedure GRIS Waite IGGY LICENSED VETERINARY TECHNICIAN-[employer] INSPECTOR [facility] Start: 08-09-2024 Non-patient / Non-visit Dr. Ronal Mary MD -[facility] Work Phone: Start: 06-14-2024 End: 06-14-[address] MAKI HURLEY MD Facility:[facility] Start: 06-14-2024 End: 06-14-[address] MAKI HURLEY MD [facility] Start: 05-13-2024 End: 05-13-2024 ambulatory GRIS Ravindra PARKINSON LICENSED VETERINARY TECHNICIAN-[employer] INSPECTOR Facility:[facility] Start: 04-29-2024 End: 05-03-2024 ambulatory NASH SAMUEL LICENSED VETERINARY TECHNICIAN-[employer] INSPECTOR Facility:[facility] Start: 04-20-2024 End: 04-20-2024 ambulatory COBY CAMPOS PA-C Facility:[facility] Start: 02-18-2024 End: 02-18-2024 ambulatory MELODIE FORTUNE LICENSED VETERINARY TECHNICIAN-[employer] INSPECTOR Facility:[facility] Start: 02-18-2024 End: 02-18-2024 Patient encounter procedure MELODIE FORTUNE LICENSED VETERINARY TECHNICIAN-[employer] INSPECTOR [facility] Start: 08-06-2023 ambulatory MELODIE Astudillo LICENSED VETERINARY TECHNICIAN-[employer] INSPECTOR Facility:A Start: 08-06-2023 End: 08-06-2023 ambulatory GRIS Ravindra IGGY LICENSED VETERINARY TECHNICIAN-[employer] INSPECTOR Facility:A Start: 08-06-2023 End: 08-06-2023 Patient encounter procedure MELODIE FORTUNE LICENSED VETERINARY TECHNICIAN-[employer] INSPECTOR [facility] Start: 06-23-2023 End: 06-23-2023 ambulatory GRIS S IGGY LICENSED VETERINARY TECHNICIAN-[employer] INSPECTOR Facility:[facility] Start: 06-23-2023 End: 06-23-2023 Patient encounter procedure GRIS Waite IGGY LICENSED VETERINARY TECHNICIAN-[employer] INSPECTOR [facility] Start: 05-13-2023 End: 05-17-2023 ambulatory GRIS S IGGY LICENSED VETERINARY TECHNICIAN-[employer] INSPECTOR Facility:[facility] Start: 05-13-2023 End: 05-17-2023 Outreach Lab GRIS S IGGY LICENSED VETERINARY TECHNICIAN-FOUNTAIN PEN NIBS INSPECTOR [facility] Start: 03-24-2023 End: 03-24-2023 ambulatory EVETTE BRICE DO Facility:A Start: 03-24-2023 End: 03-24-[address] MAKI HURLEY MD [facility] Start: 03-19-2023 End: 03-19-[address] MAKI HURLEY MD [facility] Start: 03-19-2023 End: 03-19-2023 ambulatory GRIS S IGGY LICENSED VETERINARY TECHNICIAN-FOUNTAIN PEN NIBS INSPECTOR Facility:A Start: 01-16-2023 End: 01-16-2023 ambulatory MELODIE FORTUNE LICENSED VETERINARY TECHNICIAN-FOUNTAIN PEN NIBS INSPECTOR Facility:A Start: 01-16-2023 End: 01-16-2023 Patient encounter procedure MELODIE Steele DEVIKA LICENSED VETERINARY TECHNICIAN-FOUNTAIN PEN NIBS INSPECTOR [facility] Start: 10-07-2022 End: 10-07-2022 ambulatory CLYDE LORENZO MD Facility:A Start: 08-22-2022 End: 08-22-2022 ambulatory GRIS PARKINSON LICENSED VETERINARY TECHNICIAN-FOUNTAIN PEN NIBS INSPECTOR Facility:B Start: 08-22-2022 End: 08-22-2022 Patient encounter procedure GRIS PARKINSON LICENSED VETERINARY TECHNICIAN-FOUNTAIN PEN NIBS INSPECTOR [facility] Start: 07-10-2022 End: 07-10-2022 Patient encounter procedure MELODIE Steele DEVIKA LICENSED VETERINARY TECHNICIAN-FOUNTAIN PEN NIBS INSPECTOR [facility] Start: 06-20-2022 End: 06-20-2022 Patient encounter procedure MELODIE R DEVIKA LICENSED VETERINARY TECHNICIAN-FOUNTAIN PEN NIBS INSPECTOR [facility] Start: 06-11-2022 End: 06-15-2022 Outreach Lab GRIS PARKINSON LICENSED VETERINARY TECHNICIAN-FOUNTAIN PEN NIBS INSPECTOR [facility] Start: 04-10-2022 End: 04-14-2022 Outreach Lab NIKKIE NELSON LICENSED VETERINARY TECHNICIAN-FOUNTAIN PEN NIBS INSPECTOR [facility] Start: 03-11-2022 End: 03-11-[address] MAKI HURLEY MD [facility] Start: 12-16-2021 End: 12-16-2021 Patient encounter procedure MELODIE FORTUNE LICENSED VETERINARY TECHNICIAN-FOUNTAIN PEN NIBS INSPECTOR [facility] Start: 11-11-2021 End: 11-15-2021 Outreach Lab NIKKIE NELSON LICENSED VETERINARY TECHNICIAN-FOUNTAIN PEN NIBS INSPECTOR [facility] Start: 08-21-2021 End: 08-25-2021 Outreach Lab ODALYS Blankenship RADHA LICENSED VETERINARY TECHNICIAN-FOUNTAIN PEN NIBS INSPECTOR [facility] Start: 06-12-2021 End: 06-12-2021 Patient encounter procedure HOWIE BARBOSABILL LICENSED VETERINARY TECHNICIAN-SWEEPING COMPOUND BLENDER [facility] Start: 12-31-2020 End: 01-04-2021 Outreach Lab NIKKIE LICENSED VETERINARY TECHNICIAN-FOUNTAIN PEN NIBS INSPECTOR [facility] Start: 12-12-2020 End: 12-12-2020 Patient encounter procedure HOWIE FLYNNL LICENSED VETERINARY TECHNICIAN-SWEEPING COMPOUND BLENDER [facility] Start: 12-05-2020 End: 12-05-2020 Patient encounter procedure GRIS PARKINSON LICENSED VETERINARY TECHNICIAN-FOUNTAIN PEN NIBS INSPECTOR [facility] Procedures Date Procedure Procedure Detail Performing Clinician Start: 11-21-2024 Clostridium difficil e detection Gris Parkinson HYDRAULIC DESIGN ENGINEER-C Work Phone: Start: 11-21-2024 Lactoferrin measurement Gris Parkinson HYDRAULIC DESIGN ENGINEER-C Work Phone: Start: 11-21-2024 Nucleic acid assay Lilian Parkinson HYDRAULIC DESIGN ENGINEER-C Work Phone: Start: 11-21-2024 Ova OR parasites identification Gris Parkinson HYDRAULIC DESIGN ENGINEER-C Work Phone: Start: 11-21-2024 Procedure Gris jauregui HYDRAULIC DESIGN ENGINEER-C Work Phone: Comment on above: Test Ordered: [id number] Stool CultureSalmonella/Shigella Screen Note: CB Final report Reference Range: .Result 1 Comment CB Reference Range: .No Salmonella or Shigella recovered.Campylobacter Culture Note: CB Final report Reference Range: .Result 1 Comment CB Reference Range: .No Campylobacter species isolated.E coli Shiga Toxin EIA Negative CB Reference Range: NegativePerformed at: - [facility] [id number] [place], [place] [id number] Director: Joshua Abreu PhD, Phone: [phone] Start: 11-21-2024 End: 11-21-2024 Giardia lamblia antigen assay Gris Parkinson HYDRAULIC DESIGN ENGINEER-C Work Phone: Start: 11-21-2024 End: 11-21-2024 Ova&parasites direct smears concentration & id Gris Parkinson HYDRAULIC DESIGN ENGINEER-C Work Phone: Start: 02-09-[address] DYLON HURLEY MD Start: 02-09-2014 Anterior colporrhaphy Juan HURLEY MD Start: 02-09-2014 Urinary bladder stru cture (body structure) DR MAKI HURLEY MD Comment on above: SLING IN BLADDER. Start: 02-09-1991 Hysterectomy GRIS GABBIE JAUREGUI LICENSED VETERINARY TECHNICIAN-FOUNTAIN PEN NIBS INSPECTOR Start: 02-10-1988 Dilation and curetta ge of uterus GRIS PARKINSON LICENSED VETERINARY TECHNICIAN-FOUNTAIN PEN NIBS INSPECTOR Start: 02-09-1961 Tonsillectomy and adenoidectomy GRIS PARKINSON LICENSED VETERINARY TECHNICIAN-FOUNTAIN PEN NIBS INSPECTOR H/O: hysterectomy H/O: hysterectomy Mya Parkinson HYDRAULIC DESIGN ENGINEER-C Work Phone: Urinary bladder stru cture (body structure) HOWIE MORGAN LICENSED VETERINARY TECHNICIAN-SWEEPING COMPOUND BLENDER Comment on above: SLING IN BLADDER. Plan of Treatment Date Care Activity Detail Author Start: 11-30-2024 End: 11-30-2024 Patient encounter procedure Chronic bladder pain -[facility] Work Phone: Start: 11-21-2024 Clostridium difficile detection Clostridioides difficile (PCR) [facility] Start: 11-21-2024 Giardia lamblia antigen assay Giardia Antigen (JAJA) [facility] Start: 11-21-2024 Lactoferrin measurement Stool Lactoferrin [facility] Start: 11-21-2024 Nucleic acid assay Enteric Bacteriology [facility] Start: 11-21-2024 Ova OR parasites identification Ova and Parasites [facility] Start: 11-21-2024 Patient encounter procedure Registered Clinical -Laboratory Work Phone: Immunizations Immunization Date Immunization Notes Care Provider Fa cili 01-15-2024 pneumococcal 20-tresa nt conjugate vaccine MELODIE FORTUNE LICENSED VETERINARY TECHNICIAN-FOUNTAIN PEN NIBS INSPECTOR [facility] Comment on above: Result Comment: Prev sabrina [facility] K[facility] 12-02-2023 influenza virus vaccine, unspecified formulation MELODIE FORTUNE LICENSED VETERINARY TECHNICIAN-FOUNTAIN PEN NIBS INSPECTOR [facility] 10-23-2023 SARS-CoV-2 (COVID-19 ) [id number] MELODIE FORTUNE LICENSED VETERINARY TECHNICIAN-FOUNTAIN PEN NIBS INSPECTOR [facility] 04-20-2023 SARS-CoV-2 (COVID-19 ) [id number] 1 GRIS IGGY LICENSED VETERINARY TECHNICIAN-FOUNTAIN PEN NIBS INSPECTOR [facility] Comment on above: Result Comment: [facility] 04-20-2023 SARS-CoV-2 (COVID-19 ) [id number] MELODIE FORTUNE LICENSED VETERINARY TECHNICIAN-FOUNTAIN PEN NIBS INSPECTOR [facility] Comment on above: Result Comment: Abbywilda Ribera [place] 11-17-2022 influenza virus vaccine, unspecified formulation MELODIE FORTUNE LICENSED VETERINARY TECHNICIAN-FOUNTAIN PEN NIBS INSPECTOR [facility] Comment on above: Result Comment: Niki [facility] 11-17-2022 RSV vaccine preF3, recombinant 1 MELODIE FORTUNE LICENSED VETERINARY TECHNICIAN-FOUNTAIN PEN NIBS INSPECTOR [facility] Comment on above: Result Comment: Niki Schmid [facility] 11-17-2022 RSV vaccine preF3, recombinant 2 GRIS IGGY LICENSED VETERINARY TECHNICIAN-FOUNTAIN PEN NIBS INSPECTOR [facility] Comment on above: Result Comment: Niki Schmid [facility] 11-17-2022 RSV vaccine preF3, recombinant 5 MELODIE FORTUNE LICENSED VETERINARY TECHNICIAN-FOUNTAIN PEN NIBS INSPECTOR [facility] Comment on above: Result Comment: Niki Schmid [facility] 11-10-2022 SARS-CoV-2 mRNA (hcxrhbpcgsm-dwmy-dvwqi se) vaccine MELODIE FORTUNE LICENSED VETERINARY TECHNICIAN-FOUNTAIN PEN NIBS INSPECTOR [facility] Comment on above: Result Comment: Niki Ribera [place] 06-05-2022 SARS-CoV-2 (CV19)mRNA-1273 bivalent vac GRIS PARKINSON LICENSED VETERINARY TECHNICIAN-FOUNTAIN PEN NIBS INSPECTOR [facility] 06-05-2022 SARSCoV2 (CV19)mRNA-1273(6y+ bival yessenia GRIS PARKINSON LICENSED VETERINARY TECHNICIAN-FOUNTAIN PEN NIBS INSPECTOR [facility] 09-30-2021 influenza virus vaccine, unspecified formulation GRIS PARKINSON LICENSED VETERINARY TECHNICIAN-FOUNTAIN PEN NIBS INSPECTOR [facility] 09-30-2021 pneumococcal 20-tresa nt conjugate vaccine GRIS PARKINSON LICENSED VETERINARY TECHNICIAN-FOUNTAIN PEN NIBS INSPECTOR [facility] 05-08-2021 SARS-CoV-2 (COVID-19 ) mRNA-1273 vaccine [facility] LICENSED VETERINARY TECHNICIAN-FOUNTAIN PEN NIBS INSPECTOR [facility] 12-02-2020 SARS-CoV-2 (COVID-19 ) mRNA-1273 vaccine [facility] LICENSED VETERINARY TECHNICIAN-FOUNTAIN PEN NIBS INSPECTOR [facility] 10-19-2020 influenza virus vaccine, unspecified formulation [facility] LICENSED VETERINARY TECHNICIAN-FOUNTAIN PEN NIBS INSPECTOR [facility] 07-04-2020 tetanus toxoid, redu tyler diphtheria toxoid, and acellular pertussis vaccine, adsorbed [facility] LICENSED VETERINARY TECHNICIAN-FOUNTAIN PEN NIBS INSPECTOR [facility] 05-07-2020 COVID-19, mRNA, LNP- S, PF, 100 mcg/ 0.5 mL dose; Translations: [Moderna COVID-19 Vaccine] GRISBRIELLE PARKINSON LICENSED VETERINARY TECHNICIAN-FOUNTAIN PEN NIBS INSPECTOR [facility] 04-09-2020 COVID-19, mRNA, LNP- S, PF, 100 mcg/ 0.5 mL dose; Translations: [Moderna COVID-19 Vaccine] GRISTIMUR SERRANOMER LICENSED VETERINARY TECHNICIAN-FOUNTAIN PEN NIBS INSPECTOR [facility] Comment on above: Result Comment: tanisha Ellis RN 10-07-2019 influenza virus vaccine, unspecified formulation GRIS SERRANOMER LICENSED VETERINARY TECHNICIAN-FOUNTAIN PEN NIBS INSPECTOR [facility] Comment on above: Location History: [facility] 04-05-2019 zoster vaccine recombinant GRIS SERRANOMER LICENSED VETERINARY TECHNICIAN-FOUNTAIN PEN NIBS INSPECTOR [facility] 08-26-2018 zoster vaccine recombinant GRIS IGGY LICENSED VETERINARY TECHNICIAN-FOUNTAIN PEN NIBS INSPECTOR [facility] 11-03-2017 influenza virus vaccine, unspecified formulation GRIS SERRANOMER LICENSED VETERINARY TECHNICIAN-FOUNTAIN PEN NIBS INSPECTOR [facility] 12-09-2016 influenza virus vaccine, unspecified formulation GRIS PARKINSON LICENSED VETERINARY TECHNICIAN-FOUNTAIN PEN NIBS INSPECTOR [facility] 11-09-2014 influenza virus vaccine, unspecified formulation GRIS PARKINSON LICENSED VETERINARY TECHNICIAN-FOUNTAIN PEN NIBS INSPECTOR [facility] 11-09-2013 influenza virus vaccine, unspecified formulation GRIS PARKINSON LICENSED VETERINARY TECHNICIAN-FOUNTAIN PEN NIBS INSPECTOR [facility] 12-06-2012 hepatitis A vaccine, adult dosage GRIS PARKINSON LICENSED VETERINARY TECHNICIAN-FOUNTAIN PEN NIBS INSPECTOR [facility] 12-06-2012 hepatitis B vaccine, adult dosage GRIS PARKINSON LICENSED VETERINARY TECHNICIAN-FOUNTAIN PEN NIBS INSPECTOR [facility] 06-28-2012 hepatitis B vaccine, adult dosage GRIS PARKINSON LICENSED VETERINARY TECHNICIAN-FOUNTAIN PEN NIBS INSPECTOR [facility] 04-19-2012 hepatitis A vaccine, adult dosage GRIS PARKINSON LICENSED VETERINARY TECHNICIAN-FOUNTAIN PEN NIBS INSPECTOR [facility] 04-19-2012 hepatitis B vaccine, adult dosage GRIS PARKINSON LICENSED VETERINARY TECHNICIAN-FOUNTAIN PEN NIBS INSPECTOR [facility] 04-19-2012 yellow fever vaccine GRIS PARKINSON LICENSED VETERINARY TECHNICIAN-FOUNTAIN PEN NIBS INSPECTOR [facility] Payers Date Payer Category Payer Self-pay 2024 Private Health Insurance [id number] 2023 Unknown [id number] 2022 Unknown [id number] 2011 Private Health Insurance [id number] 1955 Unknown [id number] 2.16.8 [id number] 1954 Unknown [id number] 2.16.8 40.1.826080.3.579.2.627 1954 Unknown [id number] 2.16.8 40.1.820728.3.579.2.627 1954 Unknown [id number] 2.16.8 40.1.247588.3.579.2.627 1954 Unknown [id number] 2.16.8 40.1.396705.3.579.2.627 1954 Unknown [id number] 2.16.8 40.1.140292.3.579.2.627 1954 Unknown [id number] 2.16.8 40.1.319325.3.579.2.627 1954 Unknown [id number] 2.16.8 40.1.607276.3.579.2.627 1954 Unknown [id number] 2.16.8 40.1.077541.3.579.2.627 1954 Unknown [id number] 2.16. 840.1.386133.3.579.2.627 1954 Unknown [id number] 2.16.8 40.1.132546.3.579.2.627 1954 Unknown [id number] 2.16.8 40.1.121596.3.579.2.627 1954 Unknown [id number] 2.16.8 40.1.150166.3.579.2.627 1954 Unknown [id number] 2.16. 840.1.997113.3.579.2.627 1954 Unknown [id number] 2.16. 840.1.030340.3.579.2.627 1955 Unknown [id number] 2.16. 840.1.437383.3.579.2.627 1955 Unknown [id number] 2.16.8 40.1.803534.3.579.2.627 Unknown [id number] Unknown [id number] 2.16.8 40.1.926276.3.579.2.462 Unknown [id number] 2.16.8 40.1.262980.3.579.2.462 Unknown [id number] 2.16.8 40.1.367542.3.579.2.462 Social History Date Type Detail Facility Start: 11-15-2018 End: 10-24-2024 Never smoked tobacco (finding) [facility] Start: 1955 Sex Assigned At Female A [facility] Sexual Orientation [facility] Start: 01-04-2019 Sex Female (finding) [facility] Sex Female [facility] Functional Status Date Assessment Result Facility 06-14-2024 Functional Status Maintained, confirmed [facility] 03-24-2023 Functional Status Repositions self [facility] 03-24-[address] [facility] 03-19-2023 Functional Status Sensory Deficits None A [facility] Mental Status Date Assessment Result Facility 03-24-2023 Mental Status Oriented x 4 [facility] 03-24-2023 Mental Status Orientation Assessment Orie nted x 4 [facility] Clinical Notes 02-23-2020 to 11-30-2024 Note Date & Type Note Facility 11-30-2024 Progress note [facility] 11-30-2024 Progress note Note Date/Time November 30, 2024 3:14pm [facility] [address], [address] [place] [address] OFFICE VISIT Date of Service: 11/30/24 MR#: [id number] Acct: [id number] Name: BLANK GONZALEZ Rep #: [id number] : 1955 Provider: Dr. 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 Accompanied by: self Is patient in pain?: No Allergies Penicillins (PCN) Allergy (Intermediate, Verified 11/30/24 13:52) Rash Sulfa (Sulfonamide Antibiotics) Allergy (Intermediate, Verified 11/30/24 13:52) Rash Medications ?Medication ?Instructions ?Recorded ?Confirmed ?Type acetaminophen 500 mg capsule 500 mg PO Q6H PRN 5 11/30/24 History calcium 600 mg (as carbonate)-vit tab PO 10/24/2411/10 History D3 10 mcg (400 unit) chewable tablet (Calcium 600 with Vitamin D3) fluorometholone 0.1 % eye 2 drp ophthalmic (eye) Q6H 0 10/24/24 11/30/24 History drops,suspension mesalamine 1.2 gram tablet,delayed 2.4 g PO QDAY 10/2411/30/24 History release (Lialda) multivitamin 1 tab PO QAM 10/24/24 History sertraline 25 mg tablet 37.5 mg PO QDAY 10/24/24 History simvastatin 20 mg tablet 20 mg PO QDAY 10/24/2411/30 History estradiol 0.01% (0.1 mg/gram) 1 g vaginal 3XW #42.5 gr ams 11/30/24 11/30/24 Rx vaginal cream Have you fallen in the past year?: No PFSH Medical History Sleep apnea Osteopenia Osteoarthritis Memory changes Breast calcification, left Interstitial cystitis Depression Anxiety Hypercholesteremia Ulcerative colitis Surgical History History of bladder surgery History of tonsillectomy and adenoidectomy H/O: hysterectomy Family History Brother Marfan syndrome Asthma Father Myocardial infarction Social History Smoking Status: Never smoker alcohol intake: current alcohol intake frequency: holidays/special occasions only Alcohol type: wine HPI HPI Urology Chief Complaint: 12 month pelvic floor exercises follow up Details: BLANK GONZALEZ, is a 69 F. She had a good experience with her assessment with . She is having blood work and stool samples and a follow up in February. She is hopeful that shecan decrease her medications. She ended up with a horrible 6 months and finally had an enema management that really helped with her bowels. When the bowels were not inflamed, there were no bladder symptoms!!!! She has not had any urinary tract infections. She used a urogesic blue one day, and it helped her symptoms. She has plenty at home in case she needs it. ROS Const Constitutional: No chills, fatigue, fever(s), headache(s), night sweats, weakness, weight change, abnormal sleep pattern or change in appetite Eyes Eyes: No change in vision ENT ENT: No headache(s) or dry mouth Resp Respiratory: No cough, chest congestion, shortness of breath or wheezing Cardio Cardiology: Positive for other (No chest pain.); No shortness of breath, irregular heart rhythm or lightheadedness Gastro GI: Positive for other (No nausea.); No abdominal pain, change in bowel habits, constipation, diarrhea or vomiting Musc Musculoskeletal: No abnormal gait Skin Skin: No yellowing of the eye, lesions, itchy eyes, rash or skin ulcer Neuro Neurology: No abnormal gait, confusion, dizziness, weakness, headache(s) or memory loss Psych Psychiatric: No abnormal sleep pattern, No change in appetite, No confusion and No memory loss Endo Endocrine: No fatigue, increased thirst/drinking or weight change Aller/Imm Allergy/Immunologic: No itchy eyes or wheezing Bill/Lymp Hematologic/Lymphatic: No easy bleeding, easy bruising or enlarged lymph nodes Exam Const General: cooperative, healthy appearing, comfortable and no acute distress [facility] Head: normocephalic and atraumatic Ears: hearing grossly normal bilaterally and external ears normal Nose: external nose normal Eyes General: appearance normal, both eyes and all related structures Neck Neck: normal visual inspection and trachea midline Chest Chest palpation & inspection: normal inspection of the chest Resp Effort & Inspection: normal respiratory effort, able to speak in complete sentences and symmetric chest movement Cardio Rate: regular rate GI Inspection: normal to inspection Palpation: soft and nontender General: No CVA tenderness Skin General: no rashes or lesions noted Neuro General: patient alert, patient awake, patient oriented x3 and CN's II-XI intactbilaterally Extrem General: normal to inspection Psych Appearance: grossly normal and well kempt Mental Status: mental status grossly normal Results POC UA Auto w/o Microscopy Office Urine Color Last Edit by Lisa Strange on 11/30/24 14:54 Office Urine Clarity Last Edit by Lisa Strange on 11/30/24 14:54 Office Urine Glucose Negative Last Edit by Lisa Strange on 11/30/24 14:5 4 Office Urine Ketones Negative Last Edit by Lisa Strange on 11/30/24 14:5 4 Office Urine Bilirubin Small (1+) Last Edit by Lisa Strange on 11/30/24 14:54 Office Urine Urobilinogen 0.2 mg/dL Last Edit by Lisa Strange on 5 14:54 Off Ur Spec [place] 1.025 Last Edit by Lisa Strange on 11/30/24 14:54 Office Urine pH 5.5 Last Edit by Lisa Strange on 11/30/24 14:54 Office Urine Protein Trace Last Edit by Lisa Strange on 11/30/24 14:54 Office Urine Blood Negative Last Edit by Lisa Strange on 11/30/24 14:54 Office Urine Blood Hemolyzed Negative Last Edit by Lisa Strange on 11/30 14:54 Office Urine Nitrate Negative Last Edit by Lisa Strange on 11/30/24 14:5 4 Off Ur Leukocytes Negatve Last Edit by Lisa Strange on 11/30/24 14:54 Coding Level of Care Code Off vis,est,level 4 Diagnoses UTI (urinary tract infection) N39.0 Chronic bladder pain R39.82 Frequency of micturition R35.0 Urge incontinence N39.41 Cystocele Post-menopausal atrophic vaginitis N95.2 Assessment and Plan Assessment and Plan (1) UTI (urinary tract infection): Status: Acute (2) Chronic bladder pain: Status: Acute (3) Frequency of micturition: Status: Acute (4) Urge incontinence: Status: Acute (5) Cystocele: Status: Acute (6) Post-menopausal atrophic vaginitis: Status: Acute Orders: Orders POC UA Auto w/o Microscopy 11/30/24 N39.0 - Urinary tract infection, site not specified Medications: Changed From estradiol 0.01%(0.1mg/gram) for 14 days 1 appful vaginal QDAY To estradiol 0.01%(0.1mg/gram) 1 g vaginal 3XW 42.5 grams 3RF Plan continue with management of ulcerative colitis continue estrogen cream and Urogesic Blue refill cream today Plan Details Follow Up: 12 Months (UTI and med f/u) Clinical Quality Measures Falls Risk Screening/Assistive Devices Have you fallen in the past year?: No 12/01/242033 <Electronically signed by Sondra Mary MD> Date _ Sondra Mary MD Cosigner Signature: Date (if applicable) CC: ~ [place] [facility] Work Phone: 1(836) 690-409610-10-2025 Evaluation note* Diagnosis Onset Date Resolution Status Admit Date Ulcerative colitis acute 2024 8:22am Chronic bladder pain acute 2024 1:20pm Cystocele acute November 30, 2024 1:20pm Frequency of micturition acute November 30, 2024 1:20pm Post-menopausal atrophic vaginitis acute November 30 1:20pm Urge incontinence acute November 30, 2024 1:20pm UTI (urinary tract infection) acute November 30, 2024 1:20pm [facility] Work Phone: 1(238) 659-481210-10-2025 Progress [facility] [address] [place] [address] OFFICE VISIT Date of Service: 11/18/24 MR#: [id number] Acct: [id number] Name: BLANK GONZALEZ Rep #: [id number] : 1955 Provider: Alin Mehta DO Age/Sex: 69/F Location: [facility] Status: Signed Intake Intake Visit Reasons: ULCERATIVE COLITIS Allergies Penicillins (PCN) Allergy (Intermediate, Verified 10/24/24 14:13) Rash Sulfa (Sulfonamide Antibiotics) Allergy (Intermediate, Verified 10/24/24 14:13) Rash Medications ?Medication ?Instructions ?Recorded ?Confirmed ?Type acetaminophen 500 mg capsule 500 mg PO Q6H PRN 5 11/18/24 History calcium 600 mg (as carbonate)-vit tab PO 10/24/2411/09 History D3 10 mcg (400 unit) chewable tablet (Calcium 600 with Vitamin D3) estradiol 0.01% (0.1 mg/gram) 1 appful vaginal QDAY 11/18/24 History vaginal cream fluorometholone 0.1 % eye 2 drp ophthalmic (eye) Q6H 0 10/24/24 11/18/24 History drops,suspension mesalamine 1.2 gram tablet,delayed 2.4 g PO QDAY 10/2411/18/24 History release (Lialda) multivitamin 1 tab PO QAM 10/24/24 History sertraline 25 mg tablet 37.5 mg PO QDAY 10/24/2412/03 History simvastatin 20 mg tablet 20 mg PO QDAY 10/24/2411/18 History Have you fallen in the past year?: No PFSH Medical History (Updated 11/18/24 @ 09:[address] Ogden Friend, ) Sleep apnea Osteopenia Osteoarthritis Memory changes Breast calcification, left Interstitial cystitis Depression Anxiety Hypercholesteremia Ulcerative colitis Surgical History History of tonsillectomy and adenoidectomy H/O: hysterectomy Family History (Updated 11/18/24 @ 10:35 by Betzy Broderick) Brother Marfan syndrome Asthma Father Myocardial infarction Social History Smoking Status: Never smoker alcohol intake: current alcohol intake frequency: holidays/special occasions only Alcohol type: wine HPI HPI Details: BLANK GONZALEZ, is a 69 F who presents to the office today for initial consult. *[facility] established with referral for ulcerative colitis. Pt reports that she has been seeing a Dr in [place], but is trying to transfer her care to [place] so it's closer to home for her. Pt reports shewas diagnosed with UC in 2018 and has been on Mesalamine ever since. Pt denies current GI symptoms of concern. Pt's last colonoscopy was in early 2023 and she had a flex-sig in June of 2024 that showed mild colitis, moderate diverticulosis, and small hemorrhoids. ROS Const Constitutional: No fatigue, fever(s) or weight change ENT ENT: No difficulty swallowing Gastro GI: No abdominal pain, belching, bloating, change in bowel habits, change in stool character, coffee ground emesis, constipation, cramping, diarrhea, heartburn, difficulty swallowing, feeling full early, excessive flatus, incontinent of stools, Vomiting blood/hematemesis, Blood in stool, loose stool s,Black,tarry stools, nausea/dyspepsia, pain with swallowing, vomiting or other Musc Musculoskeletal: No joint pain Skin Skin: No yellowing of the eye or itchy eyes Psych Psychiatric: No anxiety and No depression Endo Endocrine: No fatigue or weight change Aller/Imm Allergy/Immunologic: No itchy eyes Bill/Lymp Hematologic/Lymphatic: Positive for easy bruising; No easy bleeding Exam Const General: cooperative, healthy appearing, comfortable, no acute distress, well developed and well groomed Nutritional Appearance: well nourished Orientation: oriented x3 HENMT Mouth: oral mucosae normal Teeth and gingiva: dentition normal Eyes Sclera: sclerae normal Resp Effort & Inspection: normal respiratory effort Auscultation: Bilateral: Clear to Auscultation Cardio Palpation: normal PMI Rate: regular rate Rhythm: regular rhythm Heart Sounds: S1 normal and S2 normal GI Inspection: normal to inspection Auscultation: normal bowel sounds Percussion: normal to percussion Palpation: soft and no hepatosplenomegaly Assessment and Plan Assessment and Plan (1) Ulcerative colitis: Status: Acute Plan: New patient for transfer of care with ulcerative colitis (UC) complicated by dryeyes, arthritis, arthralgia, and a recent episode of acute diarrhea.: * 69-year-old woman with a history of UC since 2018. * Has been on mesalamine for the past 7 years. * Reports symptoms of dry eyes, arthritis, and arthralgia related to her UC. * Experienced an acute onset of diarrhea in early 2024. * The diarrhea prompted a flexible sigmoidoscopy in June 2024, which revealed focal active colitis in the left side of the colon. Assessment * Ulcerative Colitis (Left-sided, Active):?The patient's history is consistent with left-sided UC, now presenting with an acute exacerbation based on the flexible sigmoidoscopy findings from June 2024. This flare occurred despite long- term mesalamine therapy, indicating a potential need for treatment escalation. * Extraintestinal Manifestations (EIMs):?The patient also has EIMs of her UC, including dry eyes (possible uveitis) and arthritis/arthralgia. This suggests a systemic inflammatory process that is notfully controlled by her current medication. * Differential Diagnosis:?Consider infectious colitis as a cause of the acute diarrhea, though the flexible sigmoidoscopy showing focal active colitis points to a UC flare.?Clostridium difficile?infection should also be considered and ruled out.? Plan * Ulcerative Colitis Management: * Confirm current mesalamine dosage and adherence. * Consider increasing the mesalamine dose or switching to a different formulation. * Discuss the possibility of initiating a new medication, such as an oral corticosteroid taper for her current flare, or a long-term biologic agent given her systemic symptoms (EIMs). * Consider baseline labs, including inflammatory markers (CRP, ESR), complete blood count (CBC), liver function tests (LFTs), and kidney function. * Extraintestinal Manifestations (EIMs): * Dry Eyes/Uveitis:?Encourage a follow-up with ophthalmology for a formal diagnosis and management plan. This is especially important as uveitis can cause permanent vision loss if untreated. * Arthritis/Arthralgia:?Continue to monitor joint symptoms. If severe, consider a referral to rheumatology for co-management. * Diagnostics: * Check stool studies to rule out infectious etiologies, including?C. difficile. * Transfer of Care: * Review past medical records thoroughly. * Obtain and review imaging and endoscopy reports. * Patient Education: * [employer] Well Logging Engineer on the importance of medication adherence, even in remission. * Educate on the need to report worsening symptoms promptly. * Follow-up: * Follow up to assess symptom control and discuss test results. * Consider repeating endoscopic evaluation if symptoms persist Orders: Orders Stool Lactoferrin/WBC Today K51.90 - Ulcerative colitis, unspecified, without complications, K58.9 - Irritable bowel syndrome, unspecified ENTERIC PATHOGEN PANEL STOOL Today K51.90 - Ulcerative colitis, unspecified, without complications,K58.9 - Irritable bowel syndrome, unspecified, R19.7 - Diarrhea, unspecified OVA+PARA w/Giardia EIA 650606 Today K51.90 - Ulcerative colitis, unspecified, without complications Pancreatic Elastase, Fecal Today K51.90 - Ulcerative colitis, unspecified, without complications CDIFF (PCR) Today K51.90 - Ulcerative colitis, unspecified, without complications Fecal Fat, Qualitative Today K51.90 - Ulcerative colitis, unspecified, without complications Calprotectin, Stool Today K51.90 - Ulcerative colitis, unspecified, without complications Coding Level of Care Code Off vis,new,level 4 Diagnoses Ulcerative colitis K51.90 Clinical Quality Measures Falls Risk Screening/Assistive Devices Have you fallen in the past year?: No 11/18/24 1855 d DO> Date _ Alin Friend DO Cosigner Signature: Date (if applicable) CC: ~ [facility]08-27-2025 Note* Exam Date Time Procedure Performing Provider Status 10/05/24 2:31 PM BD Bone Density DEXA Axial Skeleton JAUN ANDERSON MD; Auth (Verified) [id number] ORIGINAL EXAMINATION: BONE DENSITOMETRY10/05/2024 2:33 pm TECHNIQUE: Dual energy bone densitometry lumbar spine and left hip. COMPARISON: August 22, 2022 HISTORY: Reason for Exam: Osteoporosis Screening FINDINGS: T Score Left Femoral Neck: -1.3 Left Femoral Neck: 0.710 (g/cm2) T Score Left Hip: -1.2 Left Hip: 0.798 (g/cm2) T Score Lumbar Spine: -2.1 Lumbar Spine: 0.821 (g/cm2) BMD Change from previous Hip: -2.6% BMD Change from previous Lumbar Spine: +0.3% FRAX score: 10 year risk major osteoporotic fracture 14 %. 10 year risk hip fracture 2.5 %. The BHOF f/k/a NOF recommends that FDA-approved medical therapies be considered in post-menopausal women and men age >/= 50 years with a: * Hip or vertebral fracture, or * T-score of /= 20% for major osteoporotic fractures or * >/= 3% for hip fractures All treatment decisions require clinical judgement and consideration of individual patient factors, including patient preferences, comorbidities, previous drug use, risk factors not captured in the FRAX registered model (e.g., frailty, falls, vitamin D deficiency, increased bone turnover, interval significant decline in bone density) and possible under- or over-estimation of fracture risk by FRAX. IMPRESSION: Osteopenia. Interpreted by: Jaun Anderson MD Preliminary Report By: Jaun Anderson MD Electronically signed By Jaun Anderson MD Dictated Date: 10/05/2024 3:02:14 PM Prelim Date: 10/05/2024 3:03:20 PM Sign Date: 10/05/2024 3:03:20 PM Ordering Provider: [facility]05-06-2025 Hospital Discharge instructions Patient Education 06/14/2024 07:00:51 ED Moderate (Conscious) Sedation (12/2017) (CUSTOM) Adult Moderate (Conscious) Sedation Discharge Instructions Refer to this sheet in the next few weeks. These instructions provide you with information on caring for yourself after your procedure. Your health care provider may also give you more specific instructions. Your treatment has been planned according to current medical practices, but problems sometimes occur. Call your health care provider if you have any problems or questions after your procedure. WHAT TO EXPECT AFTER THE PROCEDURE After your procedure: You may feel sleepy, clumsy, and have poor balance for several hours. Vomiting may occur if you eat too soon after the procedure. HOME CARE INSTRUCTIONS Do not participate in any activities where you could become injured for at least 24 hours. Do not: ? Drive. ? Swim. ? Ride a bicycle. ? Operate heavy machinery. ? Cook. ? Use power tools. ? Climb ladders. ? Work from a high place. Do not make important decisions or sign legal documents until you are improved. If you vomit, drink water, juice, or soup when you can drink without vomiting. Make sure you have little or no nausea before eating solid foods. Only take fwqn-ohr-xqknyqb or prescription medicines for pain, discomfort, or fever as directed by your health care provider. Make sure you and your family fully understand everything about the medicines given to you, including what side effects may occur. You should not drink alcohol, take sleeping pills, or take medicines that cause drowsiness for at least 24 hours. If you smoke, do not smoke without supervision. If you are feeling better, you may resume normal activities 24 hours after you were sedated. Keep all appointments with your health care provider. SEEK MEDICAL CARE IF: Your skin is pale or bluish in color. You continue to feel nauseous or vomit. Your pain is getting worse and is not helped by medicine. You have bleeding or swelling. You are still sleepy or feeling clumsy after 24 hours. SEEK IMMEDIATE MEDICAL CARE IF: You develop a rash. You have difficulty breathing. You develop any type of allergic problem. You have a fever. MAKE SURE YOU: Understand these instructions. Will watch your condition. Will get help right away if you are not doing well or get worse. Document Released: 11/16/2013 Document Reviewed: 11/16/2013 ExitCare Patient Information 2015 [employer]. This information is not intended to replace advicegiven to you by your health care provider. Make sure you discuss any questions you have with your health care provider. 06/14/2024 07:00:39 2-OPD Flex Sigmoid (12/2017) (CUSTOM) Flexible Sigmoidoscopy Discharge Instructions __X__ Begin with a light first meal. Advance to your previous diet as tolerated. __X__ Belching, passing gas or mild abdominal cramping is to be expected. Notify your doctor if youhave severe abdominal pain, fever, or excessive rectal bleeding. If you have any questions, please call your doctor at the number listed on your follow-up instructions. Follow all instructions given to you by your doctor. You have received Fentanyl and Versed as part of your sedation. Follow Up Care 05/31/2024 10:40:13 With:MAKI HURLEY MD Address: [facility] [address] [facility] [place] [address]- [phone] When: Unknown Comments:Follow-up as needed [facility] 05-06-2025 Note Date of Service 06/14/2024 Procedure Name Flexible sigmoidoscopy Consent Informed consent obtained after explaining to the patient indications, benefits, alternative test risks including but not limited to bleeding, perforation, medication reaction phlebitis. Indication Diarrhea, history of ulcerative colitis Location OPD Pre-Procedure Exam Physical exam prior to procedure appear normal Procedural Sedation Fentanyl 50 mcg, Versed 2 mg IV Technique The scope was advanced to sigmoid colon, about 35 cm from anal verge. Prep was good. Post-Procedure Exam Same as preprocedure exam Findings Moderate diverticulosis in sigmoid colon Patchy erythematous mucosa was seen in rectosigmoid colon to reach the area, no ulceration. Multiple biopsies were taken. Small hemorrhoids Complications None Estimated Blood Loss None Assessment/Plan Findings of flexible sigmoidoscopy 1. Mild colitis, biopsied 2. Moderate diverticulosis 3. Small hemorrhoids Follow Up/Recommendation 1. Pathology report 2. Schedule office visit 3. Continue mesalamine 4. May add Rowasa enema for 2 months Digitally Signed by MAKI HURLEY MD on 06/14/2024 07:29 AM [id number] Summary of episode note Discharge Instructions Thank you for allowing [place] to assist you with your healthcare needs. The following is importantdischarge information regarding your hospital visit. What to do next Follow Up Appointments Follow Up with MAKI HURLEY MD Where:[address] [facility] [place] [address]- [phone] Additional Information: Follow-up as needed Education Materials Adult Moderate (Conscious) Sedation Discharge Instructions Refer to this sheet in the next few weeks. These instructions provide you with information on caring for yourself after your procedure. Your health care provider may also give you more specific instructions. Your treatment has been planned according to current medical practices, but problems sometimes occur. Call your health care provider if you have any problems or questions after your procedure. WHAT TO EXPECT AFTER THE PROCEDURE After your procedure: You may feel sleepy, clumsy, and have poor balance for several hours. Vomiting may occur if you eat too soon after the procedure. HOME CARE INSTRUCTIONS Do not participate in any activities where you could become injured for at least 24 hours. Do not: ? Drive. ? Swim. ? Ride a bicycle. ? Operate heavy machinery. ? Cook. ? Use power tools. ? Climb ladders. ? Work from a high place. Do not make important decisions or sign legal documents until you are improved. If you vomit, drink water, juice, or soup when you can drink without vomiting. Make sure you have little or no nausea before eating solid foods. Only take hugf-rek-yytttth or prescription medicines for pain, discomfort, or fever as directed by your health care provider. Make sure you and your family fully understand everything about the medicines given to you, including what side effects may occur. You should not drink alcohol, take sleeping pills, or take medicines that cause drowsiness for at least 24 hours. If you smoke, do not smoke without supervision. If you are feeling better, you may resume normal activities 24 hours after you were sedated. Keep all appointments with your health care provider. SEEK MEDICAL CARE IF: Your skin is pale or bluish in color. You continue to feel nauseous or vomit. Your pain is getting worse and is not helped by medicine. You have bleeding or swelling. You are still sleepy or feeling clumsy after 24 hours. SEEK IMMEDIATE MEDICAL CARE IF: You develop a rash. You have difficulty breathing. You develop any type of allergic problem. You have a fever. MAKE SURE YOU: Understand these instructions. Will watch your condition. Will get help right away if you are not doing well or get worse. Document Released: 11/16/2013 Document Reviewed: 11/16/2013 [facility] Patient Information 2015 [employer] [facility]. This information is not intended to replace advicegiven to you by your health care provider. Make sure you discuss any questions you have with your health care provider. Flexible Sigmoidoscopy Discharge Instructions __X__ Begin with a light first meal. Advance to your previous diet as tolerated. __X__ Belching, passing gas or mild abdominal cramping is to be expected. Notify your doctor if youhave severe abdominal pain, fever, or excessive rectal bleeding. If you have any questions, please call your doctor at the number listed on your follow-up instructions. Follow all instructions given to you by your doctor. You have received Fentanyl and Versed as part of your sedation. Additional Information VACCINATE! IT SAVES LIVES! Members of the community who have not yet received the COVID-19 vaccine and would like to receive it can visit one of [facility] vaccine clinics. There are many vaccine clinic locations within the [facility]. For locations and available times, please visit https://gettheshot.coronavirus.[place].gov/. It is important to note that some COVID mobile vaccine clinics are held outdoors and may be canceled in rainy or stormy conditions. To learn more about pediatric vaccinations (ages 5-11), we invite you to visit the [facility] webpage. [email or web address].[email or web address].org/pages/[email or web address]-Zlarz-Hkkawqmmucb-Txtkdksbyl-Sxpvt-Uma stions.htmlTo learn more about the COVID-19 vaccine, we invite you to visit the CDC website for a list of frequently asked questions.https://www.cdc.gov/coronavirus/2019-ncov/vaccines/faq.html [facility] Patient Portal Access Instructions: Stay connected with your healthcare team and access your personal medical information anytime with the [facility] Patient Portal. Please follow the directions below to create your [facility] account: 1.Access the email account you provided upon registration to the hospital/physician office.2.Look for an invitation email from [facility].3.Open the email and access the invitation link: AcceptInvitation to [facility].4.Fill in the required laird to create your account. To access your account, visit [employer]. Click the blue button labeled Access Patient Portal and then log in with the username and password that you created in the steps above. You will be able to view your test results, lab results, a summary of your visits, upcoming appointments and more. There is also a convenient messaging option where you can send secure messages to your p rovider. In addition, you will have the ability to download any documents or summaries to your computer and/or send the information securely to a physician. Remember that your healthcare information is confidential, so carefully consider who you will allowto register on the [place] [facility] Patient Portal for access to your information. You can also access the [facility] on the [place] [facility] chica. Simply click on Patient Portal and then log into your account. If you would like to receive a full copy of your medical records, please contact the [facility] Medical Records Department by calling [phone], Thursday through Thursday between 8 a.m. and 4:30 p.m. HOW TO SAFELY DISPOSE OF PRESCRIPTION MEDICATIONS Please use one of the following methods to safely dispose of your unused medications. 1.Use a drug disposal kit: the drug disposal pouch allows you to safely discard your old and unuseddrugs. Ask your nurse to give you one when you are discharged.2.Visit a local take-back location: Many local pharmacies and police departments have programs that collect old and unwanted prescriptiondrugs. Call your local pharmacy or go to http://Benef[employer] Mobile.Unica/7O0Br8q to find one close to you.3.Make use of household items: Use cat litter or old coffee grounds to dispose medications if other options arenot available. Mix your drugs with these household products, seal them in an airtight container andthrow it into the garbage. Call [facility]: [phone] to be sure your drugs can be disposed of in this way. Some medicines may require a different approach.4.Never flush your medications down the toilet. IF YOU HAVE BEEN PRESCRIBED AN OPIOID FOR PAIN If you have been prescribed an opioid (such as hydrocodone, oxycodone or morphine), it is critical to understand the possible side effects and risks of opioid pain medications. Even when taken as directed, opioids can have several side effects including: Tolerance, meaning you might need to take more of a medication for the same pain relief. Nausea, vomiting and/or constipation. Sleepiness, dizziness, dry mouth, confusion, depression or itching. Physical dependence, meaning you have withdrawal symptoms when a medication is stopped, can develop within a few days. KNOW YOUR RESPONSIBILITIES It is important to know exactly how much and how often to take the opioid pain medications you are prescribed. Never take opioids in higher amounts or more often than prescribed. Do not combine opioids with alcohol or other drugs that cause drowsiness, such as benzodiazepines, also known as benzos, including diazepam and alprazolam, muscle relaxants or sleep aids. Never sell or share prescription opioids. This is illegal. Store opioids in a secure place and out of reach of others (including children, family, friends and visitors). The last page of this document has been signed and retained as a CHART COPY. Signatures Patient Education Materials ED Moderate (Conscious) Sedation (12/2017) (CUSTOM) 2-OPD Flex Sigmoid (12/2017) (CUSTOM) Medication Leaflets My discharge plan and instructions have been reviewed and explained to me and I,BLANK GONZALEZ understand my current condition and have read and understand these discharge instructions. I have received a written copy of the plan/instructions. If I have questions, I am aware that I should contact my doctor. Patient/Fruit Checker Signature: Date/Time: Relationship to Patient: Witness Name/Signature: Date/Time: [id number] Note. MICRO - Microbiology PROCEDURE: Urine Culture [*1] SOURCE: Urine, Clean Catch BODY SITE: COLLECTED DATE/TIME: 04/29/2024 14:12 EDT RECEIVED DATE/TIME: 04/29/2024 19:34 EDT START DATE/TIME: 04/29/2024 19:34 EDT FREE TEXT SOURCE: FINAL REPORTS Final Report [] Verified Date/Time/Personnel: 05/01/2024 08:15 EDT >100,000 cfu/ml Escherichia coli PRELIMINARY REPORTS Preliminary Report [] Verified Date/Time/Personnel: 04/30/2024 10:26 EDT >100,000 cfu/ml Escherichia coli JAJA to follow Preliminary Report [] Verified Date/Time/Personnel: 04/29/2024 20:59 EDT Specimen received in lab. SUSCEPTIBILITY RESULTS Escherichia coli Antibiotic JAJA Dilut JAJA Inter Ampicillin <=8 Susceptible Ampicillin/ <=4/2 Susceptible Sulbactam Aztreonam <=4 Susceptible Cefazolin <=2 Susceptible Ceftazidime/ <=4 Susceptible Avibactam Ceftolozane/ <=2 Susceptible Tazobactam Ciprofloxacin <=0.25 Susceptible Ertapenem <=0.5 Susceptible Gentamicin <=2 Susceptible ID Panel Not Not Applicable Applicable Imipenem <=1 Susceptible Levofloxacin <=0.5 Susceptible Meropenem <=1 Susceptible Minocycline <=4 Susceptible Nitrofurantoin <=32 Susceptible Trimethoprim/ <=0.5/9.5 Susceptible Sulfa Performing Locations *1: This test was performed at: [address], [facility] , [facility]04-05-2024 Note. MICRO - Microbiology PROCEDURE: Urine Culture [*1] SOURCE: Urine, Clean Catch BODY SITE: COLLECTED DATE/TIME: 05/13/2023 13:54 EDT RECEIVED DATE/TIME: 05/13/2023 19:03 EDT START DATE/TIME: 05/13/2023 19:03 EDT FREE TEXT SOURCE: FINAL REPORTS Final Report [] Verified Date/Time/Personnel: 05/15/2023 07:45 EDT >100,000 cfu/ml Escherichia coli PRELIMINARY REPORTS Preliminary Report [] Verified Date/Time/Personnel: 05/14/2023 11:37 EDT >100,000 cfu/ml Escherichia coli JAJA to follow SUSCEPTIBILITY RESULTS Escherichia coli Antibiotic JAJA Dilut AJJA Inter Ampicillin <=8 Susceptible Ampicillin/ <=4/2 Susceptible Sulbactam Aztreonam <=4 Susceptible Cefazolin <=2 Susceptible Ciprofloxacin <=0.25 Susceptible Ertapenem <=0.5 Susceptible Gentamicin <=2 Susceptible ID Panel Not Not Applicable Applicable Imipenem <=1 Susceptible Levofloxacin <=0.5 Susceptible Meropenem <=1 Susceptible Minocycline <=4 Susceptible Nitrofurantoin <=32 Susceptible Trimethoprim/ <=0.5/9.5 Susceptible Sulfa Performing Locations *1: This test was performed at: [facility], [address] [place] [address], [id number] , [facility] ([place])03-24-2023 Hospital Discharge instructions Patient Education 03/24/2023 10:40:27 2-OPD Colonoscopy (12/2017)(CUSTOM) Colonoscopy Discharge Instructions __X__ Begin with a light first meal. Advance to your previous diet as tolerated. __X__ Belching, passing gas or mild abdominal cramping is to be expected. Notify your doctor if youhave severe abdominal pain, fever, or excessive rectal bleeding. Post Polypectomy Instructions (if applicable) Avoid aspirin or ibuprofen products such has Motrin, Advil, and Aleve for 2 weeks If you have any questions, please call your doctor at the number listed on your follow-up instructions. Follow all instructions given to you by your doctor. You have received Fentanyl and Versed as part of your sedation. 03/24/2023 10:40:16 1- SDS General Discharge Guidelines (10/24/2022)([facility]) [place] SAME DAY SURGERY DISCHARGE INSTRUCTIONS PLEASE FOLLOW THE INSTRUCTIONS BELOW MARKED WITH AN X: __X_Regular Diet: Start with clear liquids, then soup and crackers. Gradually add other foods unless otherwise instructed by your surgeon __X_Drink extra fluids ACTIVTY: __X_Since you have had anesthetic, it would be advisable not to drive, drink alcohol, or make majordecisions over the next 24 hours. You may require more rest tonight and tomorrow __X_Do not drive vehicle while taking narcotics and as directed by your Surgeon ____Restrict activity as follows: ____Do not have sexual intercourse. Nothing in the vagina-No tampons or Douching ____No heavy lifting, pushing, or straining ____Elevate operative limb ____Ice as directed __X_Follow all written and verbal instructions given to you by your Doctor ____Other: BATHING/SHOWERING ____Sponge bathe until office visit. ____Sitting in tub of warm water may relieve discomfort ____May tub bathe ____May shower in 24-48 hours with clean linen unless otherwise instructed by your Doctor DRESSING: ____Keep operative area clean and dry ____Check the operative area for signs of bleeding. Apply pressure to the bleeding site if necessary. ____Change drip pad as needed ____Wear scrotal support for comfort WATCH FOR SIGNS OF INFECTION: (Usually appears 36-48 hours after surgery) Increased temperature (101 degrees Fahrenheit or higher) Redness or swelling Increased pain Foul odor or drainage If you have any questions, please call your doctor at the number listed on your follow-up instructions. Follow Up Care 12/29/2022 09:25:01 With:MAKI HURLEY MD Address: [facility] [address] [facility], [place] [address] [phone] When: Unknown Comments:Follow-up as needed [facility] 02-13-2024 Summary of episode note Discharge Instructions Thank you for allowing [place] to assist you with your healthcare needs. The following is importantdischarge information regarding your hospital visit. 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 No qualifying data available. The Following Equipment Has Been Ordered for You No qualifying data available. The Following Treatments Have Been Ordered for You Discharge Labs No qualifying data available. Discharge Radiology No qualifying data available. Other Therapies No qualifying data available. Post Acute Orders No qualifying data available. Someone Will Contact You Regarding These Home Health Referrals No home referrals have been ordered for you. No one will call you. Allergies Macrodantin (Hives) erythromycin (Nausea and vomiting) penicillin (Rash) sulfa drugs (Hives) Medications Please ask your primary doctor or pharmacist before taking any other medication not listed, including over the counter drugs, herbal medications, vitamins and or supplements as they may interact withyour home medications. What How Much When Instructions Last Dose Unchanged acetaminophen (acetaminophen 500 mg oral tablet) 1 tab(s) by mouth Every 6 hours as needed for for pain Unchanged calcium-vitamin D (Calcium 600+D) 2 tab(s) by mouth Every day Unchanged estradiol topical (estradiol 0.1 mg/ g vaginal cream) 1 Applicatorful Vaginal Thursday / Thursday / Thursday Duration: 30 Days Unchanged fluorometholone ophthalmic (fluorometholone 0.1% ophthalmic suspension) 1 Drops Both eyes Two (2) times a day Unchanged mesalamine (mesalamine 1.2 g oral delayed release tablet) 2 tab(s) by mouth Two (2) times a day Unchanged multivitamin (Multiple Vitamins oral tablet) 1 tab(s) by mouth Every day Unchanged psyllium (Metamucil Unflavored Smooth Texture 3.4 g/ 5.4 g oral powder for reconstitution) 1.7 gram(s) by mouth Once a day Unchanged sertraline (sertraline 25 mg oral tablet) See instructions TAKE 1.5 TABLET ONCE DAILY Unchanged simvastatin (simvastatin 20 mg oral tablet) 1 tab(s) by mouth Daily at bedtime Duration: 90 Days Please take this list to your next doctor s visit. Bring all medications you take, including over the counter medications, herbals and other supplements with you to your doctor s visit. Patients and families are reminded to discard old lists and to update any records with all medication providers or retail pharmacies. Education Materials Colonoscopy Discharge Instructions __X__ Begin with a light first meal. Advance to your previous diet as tolerated. __X__ Belching, passing gas or mild abdominal cramping is to be expected. Notify your doctor if youhave severe abdominal pain, fever, or excessive rectal bleeding. Post Polypectomy Instructions (if applicable) Avoid aspirin or ibuprofen products such has Motrin, Advil, and Aleve for 2 weeks If you have any questions, please call your doctor at the number listed on your follow-up instructions. Follow all instructions given to you by your doctor. You have received Fentanyl and Versed as part of your sedation. [place] SAME DAY SURGERY DISCHARGE INSTRUCTIONS PLEASE FOLLOW THE INSTRUCTIONS BELOW MARKED WITH AN X: __X_Regular Diet: Start with clear liquids, then soup and crackers. Gradually add other foods unless otherwise instructed by your surgeon __X_Drink extra fluids ACTIVTY: __X_Since you have had anesthetic, it would be advisable not to drive, drink alcohol, or make majordecisions over the next 24 hours. You may require more rest tonight and tomorrow __X_Do not drive vehicle while taking narcotics and as directed by your Surgeon ____Restrict activity as follows: ____Do not have sexual intercourse. Nothing in the vagina-No tampons or Douching ____No heavy lifting, pushing, or straining ____Elevate operative limb ____Ice as directed __X_Follow all written and verbal instructions given to you by your Doctor ____Other: BATHING/SHOWERING ____Sponge bathe until office visit. ____Sitting in tub of warm water may relieve discomfort ____May tub bathe ____May shower in 24-48 hours with clean linen unless otherwise instructed by your Doctor DRESSING: ____Keep operative area clean and dry ____Check the operative area for signs of bleeding. Apply pressure to the bleeding site if necessary. ____Change drip pad as needed ____Wear scrotal support for comfort WATCH FOR SIGNS OF INFECTION: (Usually appears 36-48 hours after surgery) Increased temperature (101 degrees Fahrenheit or higher) Redness or swelling Increased pain Foul odor or drainage If you have any questions, please call your doctor at the number listed on your follow-up instructions. Additional Information VACCINATE! IT SAVES LIVES! Members of the community who have not yet received the COVID-19 vaccine and would like to receive it can visit one of [facility] vaccine clinics. There are many vaccine clinic locations within the [facility]. For locations and available times, please visit [email or web address].coronavirus.[place].gov/. It is important to note that some COVID mobile vaccine clinics are held outdoors and may be canceled in rainy or stormy conditions. To learn more about pediatric vaccinations (ages 5-11), we invite you to visit the [facility] webpage. [email or web address]/[email or web address] [email or web address].htmlTo learn more about the COVID-19 vaccine, we invite you to visit the CDC website for a list of frequently asked questions.https://www.cdc.gov/coronavirus/2019-ncov/vaccines/faq.html [facility] Patient Portal Access Instructions: Stay connected with your healthcare team and access your personal medical information anytime with the [facility] Patient Portal. Please follow the directions below to create your [facility] account: 1.Access the email account you provided upon registration to the hospital/physician office.2.Look for an invitation email from [facility].3.Open the email and access the invitation link: AcceptInvitation to [facility].4.Fill in the required laird to create your account. To access your account, visit [facility]. Click the blue button labeled Access Patient Portal and then log in with the username and password that you created in the steps above. You will be able to view your test results, lab results, a summary of your visits, upcoming appointments and more. There is also a convenient messaging option where you can send secure messages to your p rovider. In addition, you will have the ability to download any documents or summaries to your computer and/or send the information securely to a physician. Remember that your healthcare information is confidential, so carefully consider who you will allowto register on the [facility] Patient Portal for access to your information. You can also access the [facility] Patient Portal on the [facility] ([facility])where chica. Simply click on Patient Portal and then log into your account. If you would like to receive a full copy of your medical records, please contact the [facility] Medical Records Department by calling [phone], Thursday through Thursday between 8 a.m. and 4:30 p.m. HOW TO SAFELY DISPOSE OF PRESCRIPTION MEDICATIONS Please use one of the following methods to safely dispose of your unused medications. 1.Use a drug disposal kit: the drug disposal pouch allows you to safely discard your old and unuseddrugs. Ask your nurse to give you one when you are discharged.2.Visit a local take-back location: Many local pharmacies and police departments have programs that collect old and unwanted prescriptiondrugs. Call your local pharmacy or go to http://[employer].Unica/4C0At5d to find one close to you.3.Make use of household items: Use cat litter or old coffee grounds to dispose medications if other options arenot available. Mix your drugs with these household products, seal them in an airtight container andthrow it into the garbage. Call [facility]: [phone] to be sure your drugs can be disposed of in this way. Some medicines may require a different approach.4.Never flush your medications down the toilet. IF YOU HAVE BEEN PRESCRIBED AN OPIOID FOR PAIN If you have been prescribed an opioid (such as hydrocodone, oxycodone or morphine), it is critical to understand the possible side effects and risks of opioid pain medications. Even when taken as directed, opioids can have several side effects including: Tolerance, meaning you might need to take more of a medication for the same pain relief. Nausea, vomiting and/or constipation. Sleepiness, dizziness, dry mouth, confusion, depression or itching. Physical dependence, meaning you have withdrawal symptoms when a medication is stopped, can develop within a few days. KNOW YOUR RESPONSIBILITIES It is important to know exactly how much and how often to take the opioid pain medications you are prescribed. Never take opioids in higher amounts or more often than prescribed. Do not combine opioids with alcohol or other drugs that cause drowsiness, such as benzodiazepines, also known as benzos, including diazepam and alprazolam, muscle relaxants or sleep aids. Never sell or share prescription opioids. This is illegal. Store opioids in a secure place and out of reach of others (including children, family, friends and visitors). The last page of this document has been signed and retained as a CHART COPY. Signatures Patient Education Materials 2-OPD Colonoscopy (12/2017)(CUSTOM) 1- SDS General Discharge Guidelines (10/24/2022)(CUSTOM) Medication Leaflets My discharge plan and instructions have been reviewed and explained to me and I,BLANK GONZALEZ understand my current condition and have read and understand these discharge instructions. I have received a written copy of the plan/instructions. If I have questions, I am aware that I should contact my doctor. Patient/Fruit Checker Signature: Date/Time: Relationship to Patient: Witness Name/Signature: Date/Time: [id number] Anesthesiology Consult note Patient: BLANK GONZALEZ Age: 67 years Sex: Female : 1955 Associated Diagnoses: None Author: ALEXANDRIA YEN MD Postoperative Information Post Operative Info: Post op day: Post Anesthesia Care Unit. Patient location: PACU. Assessment Postanesthesia assessment Vitals: Vital signs from flowsheet : Vital Signs 03/24/2023 10:00 EST Heart Rate Monitored 65 bpm Respiratory Rate 24 br/min HI Systolic Blood Pressure Non-Invasive 122 mmHg Diastolic Blood Pressure Non-Invasive 74 mmHg Mean Arterial Pressure (NBP) 89 mmHg 03/24/2023 9:45 EST Temperature Temporal Artery 36.2 DegC Heart Rate Monitored 70 bpm Respiratory Rate 24 br/min HI Systolic Blood Pressure Non-Invasive 144 mmHg HI Diastolic Blood Pressure Non-Invasive 79 mmHg Mean Arterial Pressure (NBP) 93 mmHg 03/24/2023 9:40 EST Heart Rate Monitored 73 bpm bpm Respiratory Rate - Anes 15 br/min br/min 03/24/2023 9:38 EST Systolic Blood Pressure Non-Invasive 147 mmHg mmHg Diastolic Blood Pressure Non-Invasive 74 mmHg mmHg 03/24/2023 9:35 EST Heart Rate Monitored 68 bpm bpm Respiratory Rate - Anes 14 br/min br/min Systolic Blood Pressure Non-Invasive 156 mmHg mmHg Diastolic Blood Pressure Non-Invasive 87 mmHg mmHg 03/24/2023 9:33 EST Systolic Blood Pressure Non-Invasive 170 mmHg mmHg Diastolic Blood Pressure Non-Invasive 82 mmHg mmHg 03/24/2023 9:31 EST Systolic Blood Pressure Non-Invasive 172 mmHg mmHg Diastolic Blood Pressure Non-Invasive 86 mmHg mmHg 03/24/2023 9:30 EST Heart Rate Monitored 71 bpm bpm Respiratory Rate - Anes 12 br/min br/min 03/24/2023 9:29 EST Systolic Blood Pressure Non-Invasive 189 mmHg mmHg Diastolic Blood Pressure Non-Invasive 108 mmHg mmHg 03/24/2023 9:26 EST Systolic Blood Pressure Non-Invasive 122 mmHg mmHg Diastolic Blood Pressure Non-Invasive 94 mmHg mmHg 03/24/2023 9:25 EST Heart Rate Monitored 75 bpm bpm Respiratory Rate - Anes 14 br/min br/min 03/24/2023 9:23 EST Systolic Blood Pressure Non-Invasive 109 mmHg mmHg Diastolic Blood Pressure Non-Invasive 74 mmHg mmHg 03/24/2023 9:20 EST Heart Rate Monitored 73 bpm bpm Respiratory Rate - Anes 11 br/min br/min Systolic Blood Pressure Non-Invasive 145 mmHg mmHg Diastolic Blood Pressure Non-Invasive 84 mmHg mmHg 03/24/2023 7:42 EST Temperature Temporal Artery 36.1 DegC Peripheral Pulse Rate 75 bpm Respiratory Rate 18 br/min Systolic Blood Pressure Non-Invasive 133 mmHg Diastolic Blood Pressure Non-Invasive 74 mmHg . Mental status: at preoperative baseline. Respiratory function: respirations are non-labored, stable. Respiratory support: none. CV function: stable. Cardiovascular support: none. Pain: satisfactory. Nausea status: satisfactory. Postoperative hydration status: within normal limits. Notes: Patient is sufficiently recovered from anesthesia to participate in the evaluation. No follow-up care needed. No complications post-anesthesia.. Digitally Signed by ALEXANDRIA YEN MD on 03/24/2023 10:11 AM [facility] [id number] Discharge summary Date of Service 03/24/2023 Discharge Diagnosis Ulcerative colitis Hospital Course Patient has colonoscopy scheduled outpatient for history of ulcerative colitis. The procedure was performed without immediate complications. The procedure findings have been discussed with the patient's family. The pathology report will be reviewed at next office visit. The patient will continue her home medication after discharge. Allergies Macrodantin (Hives) erythromycin (Nausea and vomiting) penicillin (Rash) sulfa drugs (Hives) Consults No qualifying data available. Objective Vitals and Measurements T: 36.1 C (Temporal Artery) HR: 73(Monitored) RR: 18 BP: 147/74 SpO2: 100% HT: 152.4 cm WT: 60.7 kg Weight Dosing Weight: 60.7 kg (03/24/23) Code Status No qualifying data available. Medications Unchanged acetaminophen (acetaminophen 500 mg oral tablet)1 tab(s) by mouth every 6 hours as needed for pain. calcium-vitamin D (Calcium 600+D)2 tab(s) by mouth every day. estradiol topical (estradiol 0.1 mg/g vaginal cream)1 Applicatorful Vaginal Thursday / Thursday / Thursday for 30 Days. Refills: 3. fluorometholone ophthalmic (fluorometholone 0.1% ophthalmic suspension)1 Drops Both eyes two (2) times a day. mesalamine (mesalamine 1.2 g oral delayed release tablet)2 tab(s) by mouth two (2) times a day. multivitamin (Multiple Vitamins oral tablet)1 tab(s) by mouth every day. psyllium (Metamucil Unflavored Smooth Texture 3.4 g/5.4 g oral powder for reconstitution)1.7 gram(s) by mouth once a day. sertraline (sertraline 25 mg oral tablet)TAKE 1.5 TABLET ONCE DAILY. Refills: 3. simvastatin (simvastatin 20 mg oral tablet)1 tab(s) by mouth daily at bedtime for 90 Days. Refills:3. Follow Up Appointments No qualifying data available. Follow Up Labs/Studies Discharge Labs No Follow-up Labs Discharge Studies No Follow-up Studies Discharge Diet No qualifying data available. Discharge Activity No qualifying data available. Readmission Risk/Palliative Score No qualifying data available. Digitally Signed by MAKI HURLEY MD on 03/24/2023 09:46 AM [facility] [id number] Note Date of Service 03/24/2023 Procedure Name Colonoscopy Consent Informed consent obtained after explaining to the patient indications, benefits, alternative test risks including but not limited to bleeding, perforation, medication reaction phlebitis. Indication History of ulcerative colitis Location OR 1 Pre-Procedure Exam Physical exam prior to procedure appeared normal Procedural Sedation MAC sedation Technique The colonoscope was advanced to cecum without difficulty. Prep was good. Post-Procedure Exam Same as preprocedure exam Findings Mild diverticulosis in sigmoid colon Small hemorrhoids Otherwise the mucosa in the colon appeared normal, multiple biopsies were taken for history of ulcerative colitis. Easy bleed after biopsy. Complications None Estimated Blood Loss None Assessment/Plan Orders: Discharge Colonoscopy findings 1. Mild diverticulosis 2. Small hemorrhoids 3. Otherwise the mucosa in the whole colon looks normal, multiple biopsies were taken for history of ulcerative colitis Follow Up/Recommendation 1. Pathology report 2. Repeat colonoscopy in 2 years under MAC sedation the hospital Digitally Signed by MAKI HURLEY MD on 03/24/2023 09:45 AM [facility] [id number] Anesthesiology Consult note Patient: BLANK GONZALEZ Age: 67 years Sex: Female : 1955 Associated Diagnoses: None Author: EVETTE BRICE DO Preoperative Information Time of last food or liquid consumption: 03/23/2023 23:30:00 Anesthesia history Patient's history: negative. Family's history: negative. Review of Systems Respiratory: Sleep apnea. Cardiovascular: hypercholesterol, hepatitis in 1963. Gastrointestinal: ulcerative colitis. Endocrine: Negative. Neurologic: anxiety, depression. Health Status Allergies: Allergic Reactions (Selected) Severity Not Documented Erythromycin- Nausea and vomiting. Macrodantin- Hives. Penicillin- Rash. Sulfa drugs- Hives., Allergies (4) ActiveReaction erythromycinNausea and vomiting MacrodantinHives penicillinRash sulfa drugsHives Current medications: (Selected) Inpatient Medications Ordered LR 1,000 mL: Start: 03/24/23 5:00:00 EST, 18 hour(s), Stop date 03/24/23 22:59:00 EST, Rate: 20 mL/hr, 03/24/23 5:00:00 EST Prescriptions Prescribed estradiol 0.1 mg/g vaginal cream: Dose = 1 appl, Vaginal, Mon/Thu/Fri, # 13 EA, 3 Refill(s), [facility]: [id number], 154.5, cm, 06/20/22 10:12:00 EDT, Height, kg, 06/20/22 10:12:00 EDT, Dosing Weight sertraline 25 mg oral tablet: See Instructions, TAKE 1.5 TABLET ONCE DAILY, # 135 tab(s), 3 Refill(s), [id number], 154.5, cm, 11/19/22 16:01:00 EDT, Height, kg, 11/19/22 16:01:00 EDT, Dosing Weight simvastatin 20 mg oral tablet: Dose : 20 mg = 1 tab(s), Oral, qHS, # 90 tab(s), 3 Refill(s), [facility][id number], 154.5, cm, 11/19/22 16:01:00 EDT, Height, kg, 11/19/22 16:01:00 EDT, Dosing Weight Documented Medications Documented Calcium 600+D: Dose = 2 tab(s), Oral, Daily, 0 Refill(s) Metamucil Unflavored Smooth Texture 3.4 g/5.4 g oral powder for reconstitution: Dose : 1.7 gram(s) =, Oral, qDay Multiple Vitamins oral tablet: Dose = 1 tab(s), Oral, Daily acetaminophen 500 mg oral tablet: Dose : 500 mg = 1 tab(s), Oral, q6hr, PRN for pain, 0 Refill(s) fluorometholone 0.1% ophthalmic suspension: Dose = 1 drop(s), Eyes, both, BID mesalamine 1.2 g oral delayed release tablet: Dose : 2.4 gram(s) = 2 tab(s), Oral, BID, 0 Refill(s), Medications (1) Active Scheduled: (0) Continuous: (1) Lactated Ringers 1,000 mL 1,000 mL, Intravenous, 20 mL/hr PRN: (0) Problem list: Medical Anxiety / SNOMED CT 63655726 / Confirmed Breast mass, right x2 (10:00) likely comp cysts prob benign (noted Nov 2020) / SNOMED CT 611584527 / Confirmed Left breast mass / SNOMED CT 280197513 / Confirmed Right breast calcifications (noted Dec 2021) s/p June 2021 stereo bx, benign, concordant, 6 mo f/u rec (Jan 2023) / SNOMED CT 605064200 / Confirmed Depression / SNOMED CT 296672089 / Confirmed Bruises easily / SNOMED CT 2687824763 / Confirmed Epidermoid cyst / SNOMED CT 7275821596 / Confirmed Family history of breast cancer in female / SNOMED CT 9661195207 / Confirmed Disturbed hearing / SNOMED CT 382696409 / Confirmed History of viral hepatitis / SNOMED CT 0074776550 / Confirmed Hypercholesterolemia / SNOMED CT 95080334 / Confirmed Urinary frequency / SNOMED CT 475232361 / Confirmed Lesion of urinary bladder / SNOMED CT 975518596 / Confirmed Osteoarthritis / SNOMED CT 2745061613 / Confirmed Osteopenia / SNOMED CT 364221322 / Confirmed Well adult exam / SNOMED CT 505542370 / Confirmed Screening for osteoporosis / SNOMED CT 572018043 / Confirmed Screening for breast cancer / SNOMED CT 162488838 / Confirmed Medicare annual wellness visit, subsequent / SNOMED CT 311446121 / Confirmed Sleep apnea / SNOMED CT 389689648 / Confirmed Ulcerative colitis / SNOMED CT 268361317 / Confirmed Urinary incontinence / SNOMED CT 4265530767 / Confirmed, Active Problems (22) Anxiety Breast mass, right x2 (10:00) likely comp cysts prob benign (noted Nov 2020) Bruises easily Depression Disturbed hearing Epidermoid cyst Family history of breast cancer in female History of viral hepatitis Hypercholesterolemia Left breast mass Lesion of urinary bladder Medicare annual wellness visit, subsequent Osteoarthritis Osteopenia Right breast calcifications (noted Dec 2021) s/p June 2021 stereo bx, benign, concordant, 6 mo f/u re Screening for breast cancer Screening for osteoporosis Sleep apnea Ulcerative colitis Urinary frequency Urinary incontinence Well adult exam Histories Past Medical History: Active Hypercholesterolemia (39418474) Comments: 10/04/2014 EDT 7:59 EDT - SHARLENE TORRES MD active without ischemic sx or cardiac limitations. Engages in organized activity program weekly Urinary incontinence (2449254908) Anxiety (11722860) Depression (838782276) Resolved Rosacea (1759411452): Resolved. Cystocele (501410416): Resolved. Osteoporosis (662684800): Resolved. Procedure history: Colonoscopy (389982279) in 2021 at 65 Years. Bladder (367740978) in 2014 at 58 Years. Comments: 12/12/2020 13:12 EDT - Yeimy Spencer LPN SLING IN BLADDER. Anterior repair (868605818) in 2014 at 58 Years. Hysterectomy ([id number]) in 1991 at 36 Years. D&C - Dilatation and curettage ([id number]) in 1988 at 33 Years. Tonsillectomy and adenoidectomy ([id number]) in 1961 at 5 Years. Social History Social & Psychosocial Habits Alcohol 03/24/2023isk Assessment: No Risk 03/24/2023 Use: Current Type: Wine Frequency: 1-2 times per year Substance Abuse 03/24/2023 Use: Never 03/24/2023isk Assessment: Denies Substance Abuse Tobacco 03/24/2023 Tobacco Use: Never (less than 100 in l 03/24/2023isk Assessment: Denies Tobacco Use Home/Environment 03/24/2023 Living situation: Home/Independent Safe place to go: Yes Domestic Concerns None Current Home Treatments oral sleep apnea appliance Special Services and Community Resources None Marital Status of Patient if Patient Independent Adult: Nutrition/Health 03/24/2023 Caffeine intake amount: none . Physical Examination Vital Signs(last 24 hrs) Last Charted QYL570 mmHg (MAR 24 07:42) DBP74 mmHg (MAR 24 07:42) Measurements from flowsheet : Measurements 03/24/2023 8:11 EST Height 152.4 cm Admission Weight 60.7 kg [place] Body Weight 45.50 kg General: Alert and oriented. Airway: Normal temporomandibular joint mobility, Normal mouth, TMJ years ago- no recent problems. Mallampati classification: II (soft palate, fauces, uvula visible). Dentition Evaluation: Own teeth. Respiratory: Lungs are clear to auscultation. Cardiovascular: Normal rate. Heart Sounds: Normal. Neurologic: Alert, Oriented. Assessment and Plan [place] [employer] Anesthesiologists (ASA) physical status classification: Class II. Anesthetic Preoperative Plan Anesthetic technique: MAC. Maintenance airway: spontaneous. Postoperative pain management: Per surgeon. Risks discussed: nausea, vomiting, headache, sore throat, dental injury, hypotension, allergic reaction, serious complications. Informed consent: signed by patient. Notes: Patient has a h/o ulcerative colitis, anxiety, depression, VIVIANE. Discussed MAC and general anesthesia only if necessary and she agrees to proceed.. Digitally Signed by EVETTE BRICE DO on 03/24/2023 08:44 AM [id number] Note ORIGINAL EXAMINATION: BONE DENSITOMETRY08/22/2022 10:51 am TECHNIQUE: Dual energy bone densitometry lumbar spine and left hip. COMPARISON: DEXA 08/17/2020 HISTORY: ORDERING SYSTEM PROVIDED HISTORY: Reason for Exam: Osteoporosis Screening Osteoporosis screening. FINDINGS: T Score Left Femoral Neck:-1.3. BMD left Femoral Neck: 0.709 (g/cm2) T Score Left Hip:-1.0. BMD left Hip: 0.819 (g/cm2) T Score Lumbar Spine:-2.1. BMD lumbar Spine: 0.819 (g/cmd2) BMD Change from previous Hip: -3.7% BMD Change from previous Lumbar Spine: 6.4% FRAX score: 10 year risk major osteoporotic fracture 15 %. 10 year risk hip fracture 1.6 %. IMPRESSION: Osteopenia. I have personally reviewed the images of this examination and agree with the resident's findings and interpretation. Interpreted by: Dinesh Johns DO Preliminary Report By: Angelika Seaman Electronically signed By Dinesh Johns DO Dictated Date: 08/22/2022 11:02:03 AM Prelim Date: 08/22/2022 11:12:02 AM Sign Date: 08/22/2022 11:12:02 AM Ordering Provider: GRIS PARKINSON [facility]07-14-2023 Note ORIGINAL EXAMINATION: BONE DENSITOMETRY08/22/2022 10:51 am TECHNIQUE: Dual energy bone densitometry lumbar spine and left hip. COMPARISON: DEXA 08/17/2020 HISTORY: ORDERING SYSTEM PROVIDED HISTORY: Reason for Exam: Osteoporosis Screening Osteoporosis screening. FINDINGS: T Score Left Femoral Neck:-1.3. BMD left Femoral Neck: 0.709 (g/cm2) T Score Left Hip:-1.0. BMD left Hip: 0.819 (g/cm2) T Score Lumbar Spine:-2.1. BMD lumbar Spine: 0.819 (g/cmd2) BMD Change from previous Hip: -3.7% BMD Change from previous Lumbar Spine: 6.4% FRAX score: 10 year risk major osteoporotic fracture 15 %. 10 year risk hip fracture 1.6 %. IMPRESSION: Osteopenia. I have personally reviewed the images of this examination and agree with the resident's findings and interpretation. Interpreted by: Dinesh Johns DO Preliminary Report By: Angelika Seaman Electronically signed By Dinesh Johns DO Dictated Date: 08/22/2022 11:02:03 AM Prelim Date: 08/22/2022 11:12:02 AM Sign Date: 08/22/2022 11:12:02 AM Ordering Provider: GRIS [facility]06-01-2023 Note ORIGINAL FROM: [address] [address] PROCEDURE FOR: BLANK José MiguelSharath GONZALEZ [address] [place] [address] [place] [address] Home: PID#: [id number] Exam#: [id number] : 1955 Age: 67 TO: MELODIE FORTUNE APRN [address] [address] Fax: NO FAX EXAMINATION: STEREOTACTIC BIOPSY OF THE RIGHT BREAST, 07/10/2022 9:55 am COMPARISON: Diagnostic mammogram 06/20/2022 HISTORY: ORDERING SYSTEM PROVIDED HISTORY: 4.3 cm region of round calcifications in the right breast at 11-12 o'clock, anterior depth. Reason for Exam: Right breast calcifications FINDINGS: A timeout was performed to confirm patient identification and site of procedure. Risks, benefits, and alternatives of the procedure were discussed. Informed written consent was obtained. A stereotactic guided biopsy was performed for the calcifications located in the right breast at 11-12 o'clock position anterior depth. This was described on the previous mammography report. The skin was prepped in the usual manner. Local anesthetic was administered to the access site. A skin tere was made in the breast. The abnormality was approached from the craniocaudal aspect using an upright digital tomographic mammography unit. A 9 gauge biopsy needle was placed adjacent to the abnormality under computer guidance and confirmatory stereotactic mammography images were obtained. A total of 7 core specimens were obtained using a vacuum assisted device. Specimen imaging demonstrates calcifications within the specimen. A marvin-shaped titanium clip was inserted into the biopsy cavity. Post procedure mammographic imaging demonstrates the biopsy marking clip at the targeted area. A sterile dressing was applied to the access site. The specimens were sent to the laboratory for pathologic analysis. STATUS: Successful IMPRESSION: Stereotactic guided biopsy for the right breast calcifications at 11-12 o'clock was successful with no apparent post procedure complications. Awaiting pathology report. An addendum will be made for radiology-pathology correlation when the pathology reports become available. The procedure was done with participation of the resident in my presence and direct supervision. I have reviewed the images and the findings with the resident and agree with the contents of the report. BIRADS: RECALL: no message RECALL TYPE: unspecified LETTER SENT: No Letter Interpreted by: Kaitlin Hernandez Preliminary Report By: Yadira Pastrana Electronically signed By Kaitlin Hernandez Dictated Date: 07/10/2022 10:41:17 AM Prelim Date: 07/10/2022 12:22:13 PM Sign Date: 07/10/2022 12:22:13 PM Ordering Provider: MELODIE FORTUNE CLINICAL: CALCIFICATIONS RIGHT BREAST 11-[address] Machinery Inspector: JOSEP BORJAS(Ivette)(M) [facility] [id number] Note ORIGINAL FROM: [place] [address] PROCEDURE FOR: BLANK GONZALEZ [address] [place] [id number] Home: PID#: [id number] Exam#: [id number] : 1955 Age: 67 TO: MELODIE FORTUNE APRN [place] [address] Fax: NO FAX EXAMINATION: STEREOTACTIC BIOPSY OF THE RIGHT BREAST, 07/10/2022 9:55 am COMPARISON: Diagnostic mammogram 06/20/2022 HISTORY: ORDERING SYSTEM PROVIDED HISTORY: 4.3 cm region of round calcifications in the right breast at 11-12 o'clock, anterior depth. Reason for Exam: Right breast calcifications FINDINGS: A timeout was performed to confirm patient identification and site of procedure. Risks, benefits, and alternatives of the procedure were discussed. Informed written consent was obtained. A stereotactic guided biopsy was performed for the calcifications located in the right breast at 11-12 o'clock position anterior depth. This was described on the previous mammography report. The skin was prepped in the usual manner. Local anesthetic was administered to the access site. A skin tere was made in the breast. The abnormality was approached from the craniocaudal aspect using an upright digital tomographic mammography unit. A 9 gauge biopsy needle was placed adjacent to the abnormality under computer guidance and confirmatory stereotactic mammography images were obtained. A total of 7 core specimens were obtained using a vacuum assisted device. Specimen imaging demonstrates calcifications within the specimen. A marvin-shaped titanium clip was inserted into the biopsy cavity. Post procedure mammographic imaging demonstrates the biopsy marking clip at the targeted area. A sterile dressing was applied to the access site. The specimens were sent to the laboratory for pathologic analysis. STATUS: Successful IMPRESSION: Stereotactic guided biopsy for the right breast calcifications at 11-12 o'clock was successful with no apparent post procedure complications. Awaiting pathology report. An addendum will be made for radiology-pathology correlation when the pathology reports become available. The procedure was done with participation of the resident in my presence and direct supervision. I have reviewed the images and the findings with the resident and agree with the contents of the report. BIRADS: RECALL: no message RECALL TYPE: unspecified LETTER SENT: No Letter Interpreted by: Kaitlin Hernandez Preliminary Report By: Yadira Pastrana Electronically signed By Kaitlin Hernandez Dictated Date: 07/10/2022 10:41:17 AM Prelim Date: 07/10/2022 12:22:13 PM Sign Date: 07/10/2022 12:22:13 PM Ordering Provider: MELODIE FORTUNE CLINICAL: CALCIFICATIONS RIGHT BREAST 11-[address] Machinery Inspector: JOSEP JORDAN RT(Ivette)(M)[facility] [id number] Note ORIGINAL FROM: [address] [address] PROCEDURE FOR: BLANK GONZALEZ [address] [place] [address] [place] [address] Home: PID#: [id number] Exam#: [id number] : 1955 Age: 67 TO: MELODIE FORTUNE APRN [address] [address] Fax: NO FAX EXAMINATION: DIAGNOSTIC DIGITAL RIGHT BREAST MAMMOGRAM, 07/10/2022 10:43 am TECHNIQUE: Diagnostic mammography of the right breast was performed. COMPARISON: Same day stereotactic biopsy, mammogram 06/20/2022 HISTORY: ORDERING SYSTEM PROVIDED HISTORY: Reason for Exam: sp Post biopsy marker clip placement FINDINGS: BREAST DENSITY: Heterogeneously dense This exam was utilized for confirmation of placement of a biopsy marker clip in the right breast. The biopsy marker clip is in the targeted area in expected location. IMPRESSION: Confirmation of placement of a biopsy marker clip in the right breast in expected location. BIRADS: MAMMOGRAM BI-RADS: n/a RECALL: no message RECALL TYPE: unspecified LETTER SENT: No Letter Interpreted by: Kaitlin Hernandez Preliminary Report By: Kaitlin Hernandez Electronically signed By Kaitlin Hernandez Dictated Date: 07/10/2022 10:48:51 AM Prelim Date: 07/10/2022 10:49:51 AM Sign Date: 07/10/2022 10:49:51 AM Ordering Provider: MELODIE FORTUNE CLINICAL: CALCIFICATIONS RIGHT BREAST 11- 12 OCLOCK/ POST STEREOTACTIC BIOPSY RIGHT BREAST. Road Machinery Inspector: JOSEP JORDAN RT(R)(M) Mammogram BI-RADS: n/[facility] [id number] Note ORIGINAL FROM: [address] [address] PROCEDURE FOR: BLANK GONZALEZ [address] [place] [id number] Home: PID#: [id number] Exam#: [id number] : 1955 Age: 67 TO: MELODIE FORTUNE [place] [address] Fax: NO FAX EXAMINATION: DIAGNOSTIC DIGITAL RIGHT BREAST MAMMOGRAM, 07/10/2022 10:43 am TECHNIQUE: Diagnostic mammography of the right breast was performed. COMPARISON: Same day stereotactic biopsy, mammogram 06/20/2022 HISTORY: ORDERING SYSTEM PROVIDED HISTORY: Reason for Exam: sp Post biopsy marker clip placement FINDINGS: BREAST DENSITY: Heterogeneously dense This exam was utilized for confirmation of placement of a biopsy marker clip in the right breast. The biopsy marker clip is in the targeted area in expected location. IMPRESSION: Confirmation of placement of a biopsy marker clip in the right breast in expected location. BIRADS: MAMMOGRAM BI-RADS: n/a RECALL: no message RECALL TYPE: unspecified LETTER SENT: No Letter Interpreted by: Kaitlin Hernandez Preliminary Report By: Kaitlin Hernandez Electronically signed By Kaitlin Hernandez Dictated Date: 07/10/2022 10:48:51 AM Prelim Date: 07/10/2022 10:49:51 AM Sign Date: 07/10/2022 10:49:51 AM Ordering Provider: MELODIE FORTUNE CLINICAL: CALCIFICATIONS RIGHT BREAST OCLOCK/ POST STEREOTACTIC BIOPSY RIGHT BREAST. Road Machinery Inspector: JOSEP JORDAN RT(R)(M) Mammogram BI-RADS: n/a [facility] [id number] Evaluation + Plan note Future Scheduled Tests Laboratory* Complete Blood Count 02/23/20 * Glucose Level 12/14/19 * Lipid Profile 02/23/20 * Lipid Profile 12/14/19 * Complete Metabolic Panel 02/23/20 Radiology* BD Bone Density DEXA Axial Skeleton 01/03/20 * NM Myocardial Spect Rest/Stress 03/16/20 * MA Mammogram Diagnostic Right w/o Chris 12/04/20 * MA Mammo Screening Bilateral w/ Chris 01/03/20 [facility] Evaluation + Plan note Future Appointments Appointment Date:06/19/2021 03:00:00 PM Scheduled Provider: Location:[facility] Appointment Type:US Breast Right Limited Appointment Date:06/19/2021 03:20:00 PM Scheduled Provider:HOWIE MORGAN APRN-SWEEPING [employer]OUND BLENDER Location:[facility] Appointment Type:BS OV Follow Up w/ Imaging Future Scheduled Tests Laboratory* Complete Blood Count 02/23/20 * Glucose Level 12/14/19 * Lipid Profile 02/23/20 * Lipid Profile 12/14/19 * Complete Metabolic Panel 02/23/20 Radiology* US Breast Right Limited 06/19/21 * BD Bone Density DEXA Axial Skeleton 01/03/20 * NM Myocardial Spect Rest/Stress 03/16/20 * MA Mammogram Diagnostic Right w/o Chris 12/04/20 * MA Mammo Screening Bilateral w/ Chris 01/03/20 [facility] evaluation + Plan note Future Appointments Appointment Date:06/19/2021 03:00:00 PM Scheduled Provider: Location:[facility] Appointment Type:US Breast Right Limited Appointment Date:06/19/2021 03:20:00 PM Scheduled Provider:HOWIE MORGAN Location:[facility] Appointment Type:BS OV Follow Up w/ Imaging Future Scheduled Tests Laboratory* Complete Blood Count 02/23/20 * Lipid Profile 02/23/20 * Complete Metabolic Panel 02/23/20 Radiology* US Breast Right Limited 06/19/21 * NM Myocardial Spect Rest/Stress 03/16/20 * MA Mammogram Diagnostic Right w/o Chris 12/04/20 [facility] evaluation + Plan note Future Appointments Appointment Date:12/16/2021 08:30:00 AM Scheduled Provider:MELODIE FORTUNE Location:[facility] Appointment Type:BS OV Follow Up w/ Imaging Appointment Date:12/16/2021 09:00:00 AM Scheduled Provider: Location:[facility] Appointment Type:MA Mammogram Diagnostic Bilateral w/ Ajay Future Scheduled Tests Radiology* MA Mammo Diagnostic Bilateral w/Chris 12/16/21 * MA Mammogram Diagnostic Right w/o Chris 12/04/20 [facility] evaluation + Plan note Future Appointments Appointment Date:06/20/2022 09:00:00 AM Scheduled Provider: Location:XRAY Appointment Type:MA Mammogram Diagnostic Bilateral w/ Ajay Appointment Date:06/20/2022 09:30:00 AM Scheduled Provider: Location:X[facility] Appointment Type:US Breast Right Limited Appointment Date:06/20/2022 10:00:00 AM Scheduled Provider:MELODIE FORTUNE Location:[facility] Appointment Type:BS OV Follow Up w/ Imaging Future Scheduled Tests Radiology* MA Mammo Diagnostic Bilateral w/Chris 06/20/22 * US Breast Right Limited 06/20/22 [facility] evaluation + Plan note Future Appointments Appointment Date:06/20/2022 09:00:00 AM Scheduled Provider: Location:[facility] Appointment Type:MA Mammogram Diagnostic Bilateral w/ Ajay Appointment Date:06/20/2022 09:30:00 AM Scheduled Provider: Location:[facility] Appointment Type:US Breast Right Limited Appointment Date:06/20/2022 10:00:00 AM Scheduled Provider:MELODIE FORTUNE Location:[facility] Appointment Type:BS OV Follow Up w/ Imaging Appointment Date:08/22/2022 11:00:00 AM Scheduled Provider: Location:[facility] Appointment Type:BD Bone Density DEXA Axial Skeleton Future Scheduled Tests Radiology* MA Mammo Diagnostic Bilateral w/Chris 06/20/22 * US Breast Right Limited 06/20/22 * BD Bone Density DEXA Axial Skeleton 08/22/22 [facility] Evaluation + Plan note Future Appointments Appointment Date:07/10/2022 10:00:00 AM Scheduled Provider: Location:[facility] Appointment Type:MA Stereotactic Biopsy Right 1st Lesion Appointment Date:08/22/2022 11:00:00 AM Scheduled Provider: Location:[facility] Appointment Type:BD Bone Density DEXA Axial Skeleton Future Scheduled Tests Radiology* BD Bone Density DEXA Axial Skeleton 08/22/22 * MA Stereotactic Biopsy Right 1st Lesion 07/10/22 [facility] evaluation + Plan note Future Appointments Appointment Date:07/24/2022 10:00:00 AM Scheduled Provider:GRIS PARKINSON Location:[facility] Appointment Type:PC OV Appointment Date:08/22/2022 11:00:00 AM Scheduled Provider: Location:[facility] Appointment Type:BD Bone Density DEXA Axial Skeleton Future Scheduled Tests Radiology* BD Bone Density DEXA Axial Skeleton 08/22/22 [facility] evaluation + Plan note Future Appointments Appointment Date:10/07/2022 08:00:00 PM Scheduled Provider: Location:[facility] Appointment Type:SL PSG (Polysomnograph) Appointment Date:01/16/2023 10:00:00 AM Scheduled Provider: Location:[facility] Appointment Type:MA Mammogram Diagnostic Bilateral w/ Ajay Appointment Date:01/16/2023 10:30:00 AM Scheduled Provider: Location:[facility] Appointment Type:US Breast Right Limited Appointment Date:01/16/2023 11:00:00 AM Scheduled Provider:MELODIE FORTUNE Location:[facility] Appointment Type:BS OV Follow Up w/ Imaging Future Scheduled Tests Radiology* MA Mammo Diagnostic Bilateral w/Chris 01/16/23 * US Breast Right Limited 01/16/23 [facility] Evaluation + Plan note Future Appointments Appointment Date:08/06/2023 02:30:00 PM Scheduled Provider: Location:[facility] Appointment Type:MA Mammogram Diagnostic Left w/ Chris Appointment Date:08/06/2023 03:00:00 PM Scheduled Provider:MELODIE FORTUNE Location:[facility] Appointment Type:BS OV Follow Up w/ Imaging Future Scheduled Tests Radiology* MA Mammo Diagnostic Left w/ Chris 08/06/23 [facility] Evaluation + Plan note Future Appointments Appointment Date:06/16/2023 10:30:00 AM Scheduled Provider:GRIS PARKINSON Location:[facility] Appointment Type:[facility] Enhanced Appointment Date:08/06/2023 02:30:00 PM Scheduled Provider: Location:[facility] Appointment Type:MA Mammogram Diagnostic Left w/ Chris Appointment Date:08/06/2023 03:00:00 PM Scheduled Provider:MELODIE FORTUNE Location:[facility] Appointment Type:BS OV Follow Up w/ Imaging Future Scheduled Tests Radiology* MA Mammo Diagnostic Left w/ Chris 08/06/23 [facility] Evaluation + Plan note Future Appointments Appointment Date:02/18/2024 01:30:00 PM Scheduled Provider: Location:[facility] Appointment Type:MA Mammogram Diagnostic Bilateral w/ Ajay Appointment Date:02/18/2024 02:00:00 PM Scheduled Provider:MELODIE FORTUNE Location:[facility] Appointment Type:BS OV Follow Up w/ Imaging Future Scheduled Tests Radiology* MA Mammo Diagnostic Bilateral w/Chris 02/18/24 [facility] Evaluation note* Diagnosis Onset Date Resolution Status Admit Date Ulcerative colitis acute 2024 8:22am Chronic bladder pain acute 2024 1:20pm Cystocele acute November 30, 2024 1:20pm Frequency of micturition acute November 30, 2024 1:20pm Post-menopausal atrophic vaginitis acute November 30 1:20pm Urge incontinence acute November 30, 2024 1:20pm UTI (urinary tract infection) acute November 30, 2024 1:20pm [facility] Work Phone: Hospital course Narrative No data available for this section [facility] Hospital Discharge instructions No data available for this section [facility] Progress note No data available for this section [facility] Progress note Author Alin Mehta [facility] Note Date/Time November 18, 2024 9 :18am [facility] [address] [place] [address] OFFICE VISIT Date of Service: 11/18/24 MR#: [id number] Acct: [id number] Name: BLANK GONZALEZ Rep #: [id number] : 1955 Provider: Alin Mehta DO Age/Sex: 69/F Location: [place] Status: Signed Intake Intake Visit Reasons: ULCERATIVE COLITIS Allergies Penicillins (PCN) Allergy (Intermediate, Verified 10/24/24 14:13) Rash Sulfa (Sulfonamide Antibiotics) Allergy (Intermediate, Verified 10/24/24 14:13) Rash Medications ?Medication ?Instructions ?Recorded ?Confirmed ?Type acetaminophen 500 mg capsule 500 mg PO Q6H PRN 5 11/18/24 History calcium 600 mg (as carbonate)-vit tab PO 10/24/24 10/ History D3 10 mcg (400 unit) chewable tablet (Calcium 600 with Vitamin D3) estradiol 0.01% (0.1 mg/gram) 1 appful vaginal QDAY 11/18/24 History vaginal cream fluorometholone 0.1 % eye 2 drp ophthalmic (eye) Q6H 0 10/24/24 11/18/24 History drops,suspension mesalamine 1.2 gram tablet,delayed 2.4 g PO QDAY 10/2411/18/24 History release (Lialda) multivitamin 1 tab PO QAM 10/24/24 History sertraline 25 mg tablet 37.5 mg PO QDAY 10/24/2412/03 History simvastatin 20 mg tablet 20 mg PO QDAY 10/24/2411/18 History Have you fallen in the past year?: No PFSH Medical History (Updated 11/18/24 @ 09:[address] Ogden Friend, DO) Sleep apnea Osteopenia Osteoarthritis Memory changes Breast calcification, left Interstitial cystitis Depression Anxiety Hypercholesteremia Ulcerative colitis Surgical History History of tonsillectomy and adenoidectomy H/O: hysterectomy Family History (Updated 11/18/24 @ 10:35 by Betzy Broderick) Brother Marfan syndrome Asthma Father Myocardial infarction Social History Smoking Status: Never smoker alcohol intake: current alcohol intake frequency: holidays/special occasions only Alcohol type: wine HPI HPI Details: BLANK GONZALEZ, is a 69 F who presents to the office today for initial consult. *[facility] established with referral for ulcerative colitis. Pt reports that she has been seeing a Dr in [place], but is trying to transfer her care to [place] so it's closer to home for her. Pt reports she was diagnosed with UC in 2018 and has been on Mesalamine ever since. Pt denies current GI symptoms of concern. Pt's last colonoscopy was in early 2023 and she had a flex-sig in June of 2024 that showed mild colitis, moderate diverticulosis, and small hemorrhoids. ROS Const Constitutional: No fatigue, fever(s) or weight change ENT ENT: No difficulty swallowing Gastro GI: No abdominal pain, belching, bloating, change in bowel habits, change in stool character, coffee ground emesis, constipation, cramping, diarrhea, heartburn, difficulty swallowing, feeling full early, excessive flatus, incontinent of stools, Vomiting blood/hematemesis, Blood in stool, loose stools,Black,tarry stools, nausea/dyspepsia, pain with swallowing, vomiting or other Musc Musculoskeletal: No joint pain Skin Skin: No yellowing of the eye or itchy eyes Psych Psychiatric: No anxiety and No depression Endo Endocrine: No fatigue or weight change Aller/Imm Allergy/Immunologic: No itchy eyes Bill/Lymp Hematologic/Lymphatic: Positive for easy bruising; No easy bleeding Exam Const General: cooperative, healthy appearing, comfortable, no acute distress, well developed and well groomed Nutritional Appearance: well nourished Orientation: oriented x3 HENMT Mouth: oral mucosae normal Teeth and gingiva: dentition normal Eyes Sclera: sclerae normal Resp Effort & Inspection: normal respiratory effort Auscultation: Bilateral: Clear to Auscultation Cardio Palpation: normal PMI Rate: regular rate Rhythm: regular rhythm Heart Sounds: S1 normal and S2 normal GI Inspection: normal to inspection Auscultation: normal bowel sounds Percussion: normal to percussion Palpation: soft and no hepatosplenomegaly Assessment and Plan Assessment and Plan (1) Ulcerative colitis: Status: Acute Plan: New patient for transfer of care with ulcerative colitis (UC) complicated by dryeyes, arthritis, arthralgia, and a recent episode of acute diarrhea.: * 69-year-old woman with a history of UC since 2018. * Has been on mesalamine for the past 7 years. * Reports symptoms of dry eyes, arthritis, and arthralgia related to her UC. * Experienced an acute onset of diarrhea in early 2024. * The diarrhea prompted a flexible sigmoidoscopy in June 2024, which revealed focal active colitis in the left side of the colon. Assessment * Ulcerative Colitis (Left-sided, Active):?The patient's history is consistent with left-sided UC, now presenting with an acute exacerbation based on the flexible sigmoidoscopy findings from June 2024. This flare occurred despite long-term mesalamine therapy, indicating a potential need for treatment escalation. * Extraintestinal Manifestations (EIMs):?The patient also has EIMs of her UC, including dry eyes (possible uveitis) and arthritis/arthralgia. This suggests a systemic inflammatory process that is not fully controlled by her current medication. * Differential Diagnosis:?Consider infectious colitis as a cause of the acute diarrhea, though the flexible sigmoidoscopy showing focal active colitis points to a UC flare.?Clostridium difficile?infection should also be considered and ruled out.? Plan * Ulcerative Colitis Management: * Confirm current mesalamine dosage and adherence. * Consider increasing the mesalamine dose or switching to a different formulation. * Discuss the possibility of initiating a new medication, such as an oral corticosteroid taper for her current flare, or a long-term biologic agent given her systemic symptoms (EIMs). * Consider baseline labs, including inflammatory markers (CRP, ESR), complete blood count (CBC), liver function tests (LFTs), and kidney function. * Extraintestinal Manifestations (EIMs): * Dry Eyes/Uveitis:?Encourage a follow-up with ophthalmology for a formal diagnosis and management plan. This is especially important as uveitis can cause permanent vision loss if untreated. * Arthritis/Arthralgia:?Continue to monitor joint symptoms. If severe, consider a referral to rheumatology for co-management. * Diagnostics: * Check stool studies to rule out infectious etiologies, including?C. difficile. * Transfer of Care: * Review past medical records thoroughly. * Obtain and review imaging and endoscopy reports. * Patient Education: * Oil Well Log[employer] Engineer on the importance of medication adherence, even in remission. * Educate on the need to report worsening symptoms promptly. * Follow-up: * Follow up to assess symptom control and discuss test results. * Consider repeating endoscopic evaluation if symptoms persist Orders: Orders Stool Lactoferrin/WBC Today K51.90 - Ulcerative colitis, unspecified, without complications, K58.9 - Irritable bowel syndrome, unspecified ENTERIC PATHOGEN PANEL STOOL Today K51.90 - Ulcerative colitis, unspecified, without complications, K58.9 - Irritable bowel syndrome, unspecified, R19.7 - Diarrhea, unspecified OVA+PARA w/Giardia EIA [id number] Today K51.90 - Ulcerative colitis, unspecified, without complications Pancreatic Elastase, Fecal Today K51.90 - Ulcerative colitis, unspecified, without complications CDIFF (PCR) Today K51.90 - Ulcerative colitis, unspecified, without complications Fecal Fat, Qualitative Today K51.90 - Ulcerative colitis, unspecified, without complications Calprotectin, Stool Today K51.90 - Ulcerative colitis, unspecified, without complications Coding Level of Care Code Off vis,new,level 4 Diagnoses Ulcerative colitis K51.90 Clinical Quality Measures Falls Risk Screening/Assistive Devices Have you fallen in the past year?: No 11/18/241854 <Electronically signed by Alin martinez DO> Date _ Alin Friend DO Cosigner Signature: Date (if applicable) CC: ~ [facility] Work Phone: Reason for referral (narrative)No reason for referral information availableLoma Linda [facility] Work Phone: Summary Purpose Family History Relationship Condition Age at Onset Recorded Date/T maty brother Marfan's syndrome Unknown Asthma Unknown father Myocardial infarction Unknown No Family History Records Found Advance Directives Advance Directive Response Recorded Date/ Time Advance Directives No September 18, 2014 7:51am Advance Directive Response Recorded Date/ Time Advance Directives No September 18, 2014 6:51am Chief Complaint and Reason for Visit Chief Complaint Admit Date ULCERATIVE COLITIS November 18, 2024 8 :22am E ORDER November 21, 2024 9 :31am 12MO F/U November 30, 2024 1 :20pm Reason for Visit Admit Date Ulcerative colitis November 18, 2024 8 :22am Chronic bladder pain November 30, 2024 1:20pm Cystocele November 30, 2024 1 :20pm Frequency of micturition November 30, 2 025 1:20pm Post-menopausal atrophic vaginitis Octob er 2024 1:20pm Urge incontinence November 30, 2024 1 :20pm UTI (urinary tract infection) November 302024 1:20pm Additional Source Comments Care Team (unrecognized sect ion and content) Team Status: Active Member Role/Relationship Status Dates Grsi Parkinson NP, HYDRAULIC DESIGN ENGINEER-C Primary care physician Active Team Status: Inactive Member Role/Relationship Status Dates Gris Parkinson NP, HYDRAULIC DESIGN ENGINEER-C Primary care physician Active Start: August 09, 2024 Dr. Sondra Mary MD Attending physician Active Start: August 09, 2024 Team Status: Inactive Member Role/Relationship Status Dates Gris Parkinson HYDRAULIC DESIGN ENGINEER, HYDRAULIC DESIGN ENGINEER-C Primary care physician Active Start: November 18, 2024 End: November 18, 2024 Gris Parkinson HYDRAULIC DESIGN ENGINEER, HYDRAULIC DESIGN ENGINEER-C Referring Provider Active Start: November 18, 2024 End: November 18, 2024 Dr. Alin Mehta DO Attending physician Active Start: November 18, 2024 End: November 18, 2024 Team Status: Active Member Role/Relationship Status Dates Gris Parkinson HYDRAULIC DESIGN ENGINEER, HYDRAULIC DESIGN ENGINEER-C Primary care physician Active Start: November 21, 2024 Dr. Alin Mehta DO Attending physician Active Start: November 21, 2024 Dr. Alin Mehta DO Referring Provider Active Start: November 21, 2024 Team Status: Inactive Member Role/Relationship Status Dates Gris Parkinson HYDRAULIC DESIGN ENGINEER, HYDRAULIC DESIGN ENGINEER-C Primary care physician Active Start: November 30, 2024 End: November 30, 2024 Gris Parkinson HYDRAULIC DESIGN ENGINEER, HYDRAULIC DESIGN ENGINEER-C Referring Provider Active Start: November 30, 2024 End: November 30, 2024 Dr. Sondra Mary MD Attending physician Active Start: November 30, 2024 End: November 30, 2024 Team Status: Inactive Member Role/Relationship Status Dates Gris Parkinson HYDRAULIC DESIGN ENGINEER, HYDRAULIC DESIGN ENGINEER-C Primary care physician Active Start: November 18, 2024 End: November 18, 2024 Gris Parkinson HYDRAULIC DESIGN ENGINEER, HYDRAULIC DESIGN ENGINEER-C Referring Provider Active Start: November 18, 2024 End: November 18, 2024 Dr. Alin Mehta DO Attending physician Active Start: November 18, 2024 End: November 18, 2024 Team Status: Inactive Member Role/Relationship Status Dates Gris Parkinson HYDRAULIC DESIGN ENGINEER, HYDRAULIC DESIGN ENGINEER-C Primary care physician Active Start: November 21, 2024 End: November 21, 2024 Dr. Alin Mehta DO Attending physician Active Start: November 21, 2024 End: November 21, 2024 Dr. Alin Mehta DO Referring Provider Active Start: November 21, 2024 End: November 21, 2024 Team Status: Inactive Member Role/Relationship Status Dates Gris Parkinson HYDRAULIC DESIGN ENGINEER, HYDRAULIC DESIGN ENGINEER-C Primary care physician Active Start: November 30, 2024 End: November 30, 2024 Gris Parkinson HYDRAULIC DESIGN ENGINEER, HYDRAULIC DESIGN ENGINEER-C Referring Provider Active Start: November 30, 2024 End: November 30, 2024 Dr. Sondra Mary MD Attending physician Active Start: November 30, 2024 End: November 30, 2024 Care Team (unrecognized sect ion and content) Care Team Personnel Name: GRIS PARKINSON LICENSED VETERINARY TECHNICIAN-FOUNTAIN PEN NIBS INSPECTOR Position: P4 Advanced Practice Nurse Med Service: Employed Provider Member Role: Primary Care Physician Address: Address: [address] [place] [address]- Care Team Related Persons Name: YOSI GONZALEZ Care Team Personnel Name: GRIS PARKINSON APRN-FOUNTAIN PEN NIBS INSPECTOR Position: P4 Advanced Practice Nurse Med Service: Employed Provider Member Role: Primary Care Physician Address: Address: [address] [place] [address]- Care Team Related Persons Name: YOSI GONZALEZ Care Team Personnel Name: GRIS PARKINSON APRN-FOUNTAIN PEN NIBS INSPECTOR Position: P4 Advanced Practice Nurse Member Role: Primary Care Physician Address: Address: [address] [place] [address]- Care Team Related Persons Name: YOSI GONZALEZ Care Team Personnel Name: GRIS PARKINSON LICENSED VETERINARY TECHNICIAN-FOUNTAIN PEN NIBS INSPECTOR Position: P4 Advanced Practice Nurse Member Role: Primary Care Physician Address: Address: [address] [place] [address]- Care Team Related Persons Name: YOSI GONZALEZ Care Team Personnel Name: GRIS PARKINSON LICENSED VETERINARY TECHNICIAN-FOUNTAIN PEN NIBS INSPECTOR Position: P4 Advanced [employer] Member Role: Primary Care Physician Address: Address: [address] [place] [address]- Care Team Related Persons Name: YOSI GONZALEZ INFORMATION SOURCE (unrecogn ized section and content) DATE CREATED AUTHOR 08/08/2023 [facility] ([place]) DATE CREATED AUTHOR AUTHOR'S ORGANIZ ATION 10/07/2024 [facility] DATE CREATED AUTHOR AUTHOR'S ORGANIZ ATION 10/15/2024 [facility] DATE CREATED AUTHOR AUTHOR'S TONNY LOPEZ 12/07/2024 [facility] Goals (unrecognized section and content) Goals may be documented in a n alternate section FOR RECORDS PERTAINING TO PATIENTS WHO ARE OR HAVE BEEN ENROLLED IN A CHEMICAL DEPENDENCY/SUBSTANCEABUSE PROGRAM, SOME INFORMATION MAY BE OMITTED. This clinical summary was aggregated from multiple sources. Caution should be exercised in using it in the provision of clinical care. This summary normalizes information from multiple sources, and as a consequence, information in this document may materially change the coding, format and clinical context of patient data. In addition, data may be omitted in some cases. CLINICAL DECISIONS SHOULD BE BASED ON THE PRIMARY CLINICAL RECORDS. [facility] [employer] [facility] provides no warranty or guarantee of the accuracy or completeness of information in this document.
--- NOTE | 2025-01-30 07:25 | US_ITS ---
PROCEDURE: ELASTOGRAPHY PARENCHYMA/ORGAN 01/30/2025 REASON FOR EXAM: FATTY LIVER TECHNIQUE: Procedure Code: USELPAROG Modality: US Procedure: ELASTOGRAPHY PARENCHYMA/ORGAN COMPARISON: Ultrasound liver dated 01/09/2025. FINDINGS: ELASTOGRAPHY: EQI Med: 6.1 kPa EQI Med Solitario: 1.41 m/s US/Elastography Parenchyma/Organ IMPRESSION: Hepatic elastography documents F 2 to F 3, [id number] likelihood of clini ariana significant fibrosis. Reading Location: [place] [id number]
== END | disposition home or self-care (01) ==
PROVIDERS: PCP Nurse Practitioner Primary Care; Referring Provider Internal Medicine Gastroenterology; Visit Provider Internal Medicine Gastroenterology
DX: K76.0 Fatty (change of) liver, not elsewhere classified (principal)
CPT/HCPCS: 76981